=== PATIENT | male | born 1945 | race Caucasian/White ===

== ENCOUNTER 2020-04-07 09:32 | Outpatient (REF) | payer MEDICARE, OTHER, SELFPAY ==
[2020-04-07 10:23] LABS: Urine Cytology See Pathology rpt
== END 2020-04-07 09:33 | disposition home or self-care (01) ==
LOC: HO.LNP 09:32
PROVIDERS: Visit Provider Internal Medicine
DX: R31.9 Hematuria, unspecified (principal)
CPT/HCPCS: 88112

== ENCOUNTER 2020-08-29 07:42 | Outpatient (REF) | payer MEDICARE, OTHER, SELFPAY ==
[2020-08-29 10:20] LABS: MANUAL DIFF FLAG SCAN; Mean Corpuscular Volume 73.4 fL (80-98); SCAN SMEAR FLAG 1
[2020-08-29 10:21] LABS: Basophils Percent Auto 0.3 % (0-2); Eosinophils Absolute Auto 0.2 X10*3/uL (0.0-0.4); Eosinophils Percent Auto 2.3 % (0-4); Hematocrit 46.3 % (42-52); Hemoglobin 13.6 g/dl (14.0-18.0); Imm Gran Abs Auto 0.02 X10*3/uL (0.00-0.03); Imm Gran Pct Auto 0.3 % (0.0-0.4); Lymphocytes Percent Auto 15.4 % (20-40); Mean Corpuscular HGB Conc 29.4 g/dl (31.0-36.0); Mean Corpuscular Hemoglobin 21.6 pg (27.0-33.0); Mean Platelet Volume 10.9 fL (9.4-12.4); Monocytes Absolute Auto 0.5 X10*3/uL (0.1-1.2); Monocytes Percent Auto 8.2 % (2-11); Neutrophils Absolute Auto 4.7 X10*3/uL (2.0-8.3); Neutrophils Percent Auto 73.5 % (45-73); Platelet Count 177 X10*3/uL (160-400); Red Blood Count 6.31 X10*6/uL (4.60-5.80); Red Cell Distribution Width 19.7 % (11.0-16.0); White Blood Count 6.4 X10*3/uL (4.8-10.8)
[2020-08-29 10:32] LABS: Creatinine Urine 137.27 mg/dL; Microalbum/Creatinine Ratio Ur 50.2 ug/mg cr
[2020-08-29 10:35] LABS: Estimated Average Glucose 126 mg/dL; Hemoglobin A1C 148.6503 umol/L
[2020-08-29 10:36] LABS: PLT ABN DIST 1
[2020-08-29 10:37] LABS: Glucose Urine UA >=1000 MG/DL (NEG); Leukocyte Esterase Urine NEG (NEG); Nitrite Urine NEG (NEG); PH 5.5 (5.0-8.0); Specific Gravity - Urine 1.025 (1.005-1.025); Urine Blood NEG (NEG); Urine Ketones NEG (NEG); Urine Protein NEG (NEG-TRACE)
[2020-08-29 10:41] LABS: Appearance Urine CLEAR; Color Urine YELLOW
[2020-08-29 11:04] LABS: Uric Acid 4.7 mg/dL (3.4-7.0)
[2020-08-29 11:06] LABS: Alanine Aminotransferase 24 U/L (0-40); Albumin Level 4.4 g/dL (3.5-5.0); Alkaline Phosphatase 100 U/L (39-117); Anion Gap 15 (12-20); Aspartate Amino Transferase 24 U/L (5-37); Bilirubin Total 0.7 mg/dL (0.0-1.0); Blood Urea Nitrogen 24 mg/dL (9-16); Calcium 8.8 mg/dL (8.4-10.2); Carbon Dioxide 24 mmol/L (22-29); Chloride 108 mmol/L (96-108); Estimated Glomerular Filt Rate 45; Glucose Fasting 117 mg/dL (60-99); Potassium 4.8 mmol/L (3.3-5.1); Sodium 142 mmol/L (135-145); Total Protein 7.1 g/dL (6.5-8.0)
[2020-08-29 11:12] LABS: Mucus Urine 1+ /LPF; RBC Urine 0 /HPF (0); Squamous Epithelial Cell Urine TRACE /LPF
[2020-08-29 11:25] LABS: Vitamin D 25-OH Total 30.8 ng/mL (>30)
[2020-08-30 13:57] LABS: Calcium (PTHI) 9.2 mg/dL (8.6-10.3); PTHI 100 pg/mL (14-64)
== END 2020-08-29 07:43 | disposition home or self-care (01) ==
LOC: HO.10HDL 07:42
PROVIDERS: Absent Provider Internal Medicine Nephrology; Visit Provider Internal Medicine
DX: E11.22 Type 2 diabetes mellitus with diabetic chronic kidney disease (principal); N18.31 Chronic kidney disease, stage 3a; N20.0 Calculus of kidney; I25.10 Atherosclerotic heart disease of native coronary artery without angina pectoris
CPT/HCPCS: 36415; 80053; 81001; 82043; 82306; 83036; 83970; 84550; 85025

== ENCOUNTER → 2020-09-14 16:12 | Outpatient (BNVA) | payer MEDICARE, OTHER, SELFPAY | PROVIDERS: PCP Internal Medicine; Visit Provider Surgery | DX: K51.90 Ulcerative colitis, unspecified, without complications (principal) | CPT/HCPCS: 99202 ==

== ENCOUNTER 2021-03-07 06:00 | Outpatient (REF) | payer MEDICARE, OTHER, SELFPAY ==
[2021-03-07 07:49] LABS: Basophils Percent Auto 0.4 % (0-2); Imm Gran Abs Auto 0.01 X10*3/uL (0.00-0.03); Imm Gran Pct Auto 0.2 % (0.0-0.4); MANUAL DIFF FLAG SCAN
[2021-03-07 07:50] LABS: Eosinophils Absolute Auto 0.2 X10*3/uL (0.0-0.4); Hematocrit 30.7 % (42-52); Lymphocytes Absolute Auto 0.8 X10*3/uL (1.2-4.9); Mean Corpuscular HGB Conc 25.4 g/dl (31.0-36.0); Mean Corpuscular Hemoglobin 15.8 pg (27.0-33.0); Monocytes Absolute Auto 0.7 X10*3/uL (0.1-1.2); Neutrophils Absolute Auto 3.4 X10*3/uL (2.0-8.3); Neutrophils Percent Auto 67.4 % (45-73); Platelet Count 190 X10*3/uL (160-400); Red Blood Count 4.94 X10*6/uL (4.60-5.80); Red Cell Distribution Width 22.5 % (11.0-16.0)
[2021-03-07 07:55] LABS: Mean Corpuscular Volume 62.1 fL (80-98)
[2021-03-07 07:57] LABS: Hemoglobin 7.8 g/dl (14.0-18.0)
[2021-03-07 07:59] LABS: Estimated Average Glucose 111 mg/dL; Hemoglobin A1c % 5.5 %
[2021-03-07 08:18] LABS: Alanine Aminotransferase 15 U/L (0-40); Alkaline Phosphatase 104 U/L (39-117); Anion Gap 11 (12-20); Aspartate Amino Transferase 22 U/L (5-37); Bilirubin Total 0.9 mg/dL (0.0-1.0); Blood Urea Nitrogen 21 mg/dL (9-16); Carbon Dioxide 23 mmol/L (22-29); Chloride 112 mmol/L (96-108); Cholesterol 63 mg/dL; Estimated Glomerular Filt Rate 42; Glucose Fasting 151 mg/dL (60-99); HDL Cholesterol 25 mg/dL; LDL Cholesterol Calculated 20 mg/dl; Potassium 4.8 mmol/L (3.3-5.1); Sodium 141 mmol/L (135-145); Total Protein 6.6 g/dL (6.5-8.0); Triglycerides 93 mg/dL
[2021-03-07 08:21] LABS: Albumin Level 4.1 g/dL (3.5-5.0); Anion Gap 11 (12-20); Blood Urea Nitrogen 21 mg/dL (9-16); Calcium 8.8 mg/dL (8.4-10.2); Carbon Dioxide 23 mmol/L (22-29); Chloride 112 mmol/L (96-108); Estimated Glomerular Filt Rate 43; Magnesium 2.2 mg/dL (1.6-2.6); Phosphorus 2.9 mg/dL (2.7-4.5); Potassium 4.7 mmol/L (3.3-5.1); Sodium 141 mmol/L (135-145)
[2021-03-07 08:44] LABS: SLIDE REVIEW VERIFIED
[2021-03-07 09:54] LABS: Appearance Urine CLEAR; Color Urine YELLOW; Glucose Urine UA >=1000 MG/DL (NEG); Leukocyte Esterase Urine NEG (NEG); Nitrite Urine NEG (NEG); Specific Gravity - Urine 1.025 (1.005-1.025); Urine Blood NEG (NEG); Urine Ketones NEG (NEG); Urine Protein NEG (NEG-TRACE)
[2021-03-07 10:04] LABS: RBC Urine 0-2 /HPF (0); WBC Urine 0 /HPF (0-4)
[2021-03-07 10:14] LABS: Microalbum/Creatinine Ratio Ur 27.9 ug/mg cr; Total Protein Urine Random 11 mg/dL (<12)
[2021-03-10 12:12] LABS: PTHI 29 pg/mL (14-64)
[2021-03-12 12:22] LABS: Vitamin D 25-OH, D2 <4 ng/mL; Vitamin D 25-OH, D3 30 ng/mL; Vitamin D 25-OH, Total 30 ng/mL (30-100)
[2021-03-14 14:27] LABS: Calcium (PTHI) 6.3 mg/dL (8.6-10.3)
== END 2021-03-07 06:01 | disposition home or self-care (01) ==
LOC: HO.LAB 06:00
PROVIDERS: Absent Provider Internal Medicine; PCP Internal Medicine; Visit Provider Internal Medicine Nephrology
DX: E11.22 Type 2 diabetes mellitus with diabetic chronic kidney disease (principal); N18.31 Chronic kidney disease, stage 3a; N25.0 Renal osteodystrophy; N20.0 Calculus of kidney
CPT/HCPCS: 36415; 80051; 80053; 80061; 81001; 82040; 82043; 82306; 82310; 82565; 83036; 83735; 83970; 84100; 84156; 84520; 85025; 87086

== ENCOUNTER 2021-03-20 13:16 | Outpatient (REF) | payer MEDICARE, OTHER, SELFPAY ==
[2021-03-20 16:00] LABS: Imm Gran Abs Auto 0.01 X10*3/uL (0.00-0.03); Imm Gran Pct Auto 0.2 % (0.0-0.4); MANUAL DIFF FLAG SCAN; Monocytes Absolute Auto 0.5 X10*3/uL (0.1-1.2); SCAN SMEAR FLAG 1
[2021-03-20 16:02] LABS: Basophils Percent Auto 0.4 % (0-2); Eosinophils Absolute Auto 0.1 X10*3/uL (0.0-0.4); Eosinophils Percent Auto 2.1 % (0-4); Hematocrit 31.9 % (42-52); Lymphocytes Absolute Auto 0.8 X10*3/uL (1.2-4.9); Lymphocytes Percent Auto 14.3 % (20-40); Mean Corpuscular HGB Conc 25.1 g/dl (31.0-36.0); Mean Corpuscular Hemoglobin 15.7 pg (27.0-33.0); Monocytes Percent Auto 8.6 % (2-11); Neutrophils Percent Auto 74.4 % (45-73); Red Blood Count 5.08 X10*6/uL (4.60-5.80); Red Cell Distribution Width 22.8 % (11.0-16.0)
[2021-03-20 16:12] LABS: Iron 14 mcg/dL (45-160); Mean Corpuscular Volume 62.8 fL (80-98); Percent Iron Saturation 3 % (15-50); Total Iron Binding Capacity 468 mcg/dL (228-428); Unsaturated Iron Binding 454 ug/dL
[2021-03-20 16:13] LABS: PLT ABN DIST 1
[2021-03-20 16:24] LABS: White Blood Count 5.3 X10*3/uL (4.8-10.8)
[2021-03-20 16:25] LABS: SLIDE REVIEW VERIFIED
[2021-03-20 16:40] LABS: Folate 19.1 ng/mL (> or = 4.0); Vitamin B12 534 pg/mL (200-900)
== END 2021-03-20 13:17 | disposition home or self-care (01) ==
LOC: HO.LAB 13:16
PROVIDERS: PCP Internal Medicine; Visit Provider Internal Medicine Nephrology
DX: N18.32 Chronic kidney disease, stage 3b (principal)
CPT/HCPCS: 36415; 82607; 82746; 83540; 85025

== ENCOUNTER 2021-04-13 12:04 | Outpatient (REF) | payer MEDICARE, OTHER, SELFPAY ==
[2021-04-13 12:20] LABS: MANUAL DIFF FLAG NO
[2021-04-13 13:55] LABS: Iron 31 mcg/dL (45-160); Percent Iron Saturation 7 % (15-50); Total Iron Binding Capacity 436 mcg/dL (228-428); Unsaturated Iron Binding 405 ug/dL
[2021-04-13 14:17] LABS: Ferritin 38 ng/mL (20-250)
[2021-04-13 14:22] LABS: Basophils Percent Auto 0.3 % (0-2); Eosinophils Absolute Auto 0.1 X10*3/uL (0.0-0.4); Eosinophils Percent Auto 2.1 % (0-4); Hematocrit 46.3 % (42-52); Imm Gran Abs Auto 0.01 X10*3/uL (0.00-0.03); Imm Gran Pct Auto 0.2 % (0.0-0.4); Lymphocytes Absolute Auto 0.7 X10*3/uL (1.2-4.9); Lymphocytes Percent Auto 12.5 % (20-40); Mean Corpuscular HGB Conc 28.1 g/dl (31.0-36.0); Mean Corpuscular Hemoglobin 21.8 pg (27.0-33.0); Mean Corpuscular Volume 77.7 fL (80-98); Monocytes Absolute Auto 0.6 X10*3/uL (0.1-1.2); Monocytes Percent Auto 9.9 % (2-11); Neutrophils Absolute Auto 4.3 X10*3/uL (2.0-8.3); Platelet Count 197 X10*3/uL (160-400); Red Blood Count 5.96 X10*6/uL (4.60-5.80); White Blood Count 5.8 X10*3/uL (4.8-10.8)
[2021-04-14 19:46] LABS: Immunoglobulin A 218 mg/dL (70-320)
[2021-04-17 16:16] LABS: Transglutaminase Ab IgG <1.0 U/mL; Transglutaminase IgA <1.0 U/mL
[2021-04-17 16:52] LABS: Gliadin Deamidated IgA Ab <1.0 U/mL; Gliadin Deamidated IgG Ab <1.0 U/mL
[2021-04-19 14:46] LABS: Endomysial IgA Antibody Negative (Negative)
== END 2021-04-13 12:05 | disposition home or self-care (01) ==
LOC: HO.LAB 12:04
PROVIDERS: PCP Internal Medicine; Visit Provider Internal Medicine
DX: D50.9 Iron deficiency anemia, unspecified (principal)
CPT/HCPCS: 36415; 82728; 82784; 83516; 83540; 85025; 86255; 86256

== ENCOUNTER 2021-04-17 06:41 | Day surgery (SDC) | payer MEDICARE, OTHER, SELFPAY ==
--- NOTE | 2021-04-14 10:10 | P.CONAN_ITS ---
Documented by User: Devika Hamm NP 04/14/21 10:49 HPI - Anesthesia Eval Consult details Narrative: 75yo M for Upper Endoscopy ileostomy *Multiple Med Allergies* s/p CABG 2017 - See Dr Mccarty ([facility] Cards yearly in 04/2020 stable with no change to regimen, walking >1.5miles daily) PMFSH Active Problems Active Problems: All Active Problems (Updated 09/14/20 @ 17:09 by Eloy Mo MD) Ulcerative colitis (Acute) Past Medical History Medical History CAD (coronary artery disease) Diabetes mellitus Gout Nephrolithiasis Ulcerative colitis Family History Family History Father Colon cancer Mother No problems noted. Paternal Grandfather Cancer of unknown origin Surgical History Surgical History (Updated 04/17/21 @ 07:27 by Isabell Rios MD) H/O cystoscopy H/O ileostomy H/O thumb surgery History of esophagogastroduodenoscopy (EGD) History of quadruple bypass (~10/2016) Social History Social History Patient Tobacco Use Status: Former Tobacco user Use of substances other than those prescribed or required for medical reasons: No Are you DNR?: No Advance Directives: No Advance Directives Information Provided: Yes Recently lost weight without trying: Unsure How much weight loss: 24-33 pounds Eating poorly because of decreased appetite: No Nutrition screen score: 5 Poor oral hygiene: No Meds Allergies Allergy/AdvReac Type Severity Reaction Status Date / Time infliximab [From Remicade] Allergy Severe CHEST,ARM Verified 04/17/21 07:13 PAIN azathioprine [From Imuran] Allergy Intermediate LOWERED Verified 04/17/21 07:13 WBC'S Iodinated Contrast Media Allergy Intermediate CHILLS,RASH Verified 04/17/21 07:13 [IV Dye, Iodine Containing] ,SWEATS alendronate sodium Allergy Mild HIVES Verified 04/17/21 07:13 [From FOSAMAX] amoxicillin [AMOXICILLIN] Allergy Unknown HIVES Verified 04/17/21 07:13 ceftriaxone [From ROCEPHIN] Allergy Unknown HIVES Verified 04/17/21 07:13 lansoprazole [Prevpac] Allergy Unknown Unknown Verified 04/17/21 07:13 omeprazole [From PRILOSEC] Allergy Unknown HIVES Verified 04/17/21 07:13 penicillin V Allergy Unknown Unknown Verified 04/17/21 07:13 sulfamethoxazole Allergy Unknown HIVES Verified 04/17/21 07:13 [From Bactrim] trimethoprim [From Bactrim] Allergy Unknown HIVES Verified 04/17/21 07:13 contrast Allergy Unknown high temp, Uncoded 08/07/19 00:00 sweats SURGICAL MESH Allergy Unknown Unknown Uncoded 09/14/20 16:23 Home Medications Medication Instructions Recorded Confirmed Last Taken Type allopurinol 100 mg tablet 200 mg PO DAILY 09/14/20 09/14/20 Unknown History aspirin 81 mg tablet,delayed 81 mg PO DAILY 09/14/20 09/14/20 Unknown History release atorvastatin 80 mg tablet 80 mg PO BEDTIME 09/14/20 09/14/20 Unknown History dapagliflozin 5 mg tablet 5 mg PO DAILY 09/14/20 09/14/20 Unknown History metoprolol succinate 25 mg 25 mg PO DAILY 09/14/20 04/17/21 04/17/21 History tablet,extended release 24 hr 25 mg pantoprazole 40 mg tablet,delayed 40 mg PO DAILY 09/14/20 09/14/20 Unknown History release Exam Exam Date and Time: April 14, 2021 1010 Pertinent Lab Results Pertinent Lab Results: Laboratory Tests 03/07/21 04/13/21 06:20 12:16 WBC 5.8 Hgb 13.0 L D Hct 46.3 D Plt Count 197 Sodium 141 Potassium 4.7 Chloride 112 H Carbon Dioxide 23 BUN 21 H Creatinine 1.59 H Assessment and Plan Assessment Anesthesia Assessment: Chart Reviewed Documented by User: Isabell Rios MD 04/17/21 07:44 PMFSH Active Problems Active Problems: All Active Problems (Updated 09/14/20 @ 17:09 by Eloy Mo MD) Ulcerative colitis (Acute) Denies chest pain Past Medical History Medical History CAD (coronary artery disease) Diabetes mellitus Gout Nephrolithiasis Ulcerative colitis Family History Family History Father Colon cancer Mother No problems noted. Paternal Grandfather Cancer of unknown origin Family history of problems with anesthesia: No Surgical History Surgical History (Updated 04/17/21 @ 07:27 by Isabell Rios MD) H/O cystoscopy H/O ileostomy H/O thumb surgery History of esophagogastroduodenoscopy (EGD) History of quadruple bypass (~10/2016) History of Problems with Anesthesia: No Social History Social History Patient Tobacco Use Status: Former Tobacco user Use of substances other than those prescribed or required for medical reasons: No Are you DNR?: No Advance Directives: No Advance Directives Information Provided: Yes Recently lost weight without trying: Unsure How much weight loss: 24-33 pounds Eating poorly because of decreased appetite: No Nutrition screen score: 5 Poor oral hygiene: No Meds Allergies Allergy/AdvReac Type Severity Reaction Status Date / Time infliximab [From Remicade] Allergy Severe CHEST,ARM Verified 04/17/21 07:13 PAIN azathioprine [From Imuran] Allergy Intermediate LOWERED Verified 04/17/21 07:13 WBC'S Iodinated Contrast Media Allergy Intermediate CHILLS,RASH Verified 04/17/21 07:13 [IV Dye, Iodine Containing] ,SWEATS alendronate sodium Allergy Mild HIVES Verified 04/17/21 07:13 [From FOSAMAX] amoxicillin [AMOXICILLIN] Allergy Unknown HIVES Verified 04/17/21 07:13 ceftriaxone [From ROCEPHIN] Allergy Unknown HIVES Verified 04/17/21 07:13 lansoprazole [Prevpac] Allergy Unknown Unknown Verified 04/17/21 07:13 omeprazole [From PRILOSEC] Allergy Unknown HIVES Verified 04/17/21 07:13 penicillin V Allergy Unknown Unknown Verified 04/17/21 07:13 sulfamethoxazole Allergy Unknown HIVES Verified 04/17/21 07:13 [From Bactrim] trimethoprim [From Bactrim] Allergy Unknown HIVES Verified 04/17/21 07:13 contrast Allergy Unknown high temp, Uncoded 08/07/19 00:00 sweats SURGICAL MESH Allergy Unknown Unknown Uncoded 09/14/20 16:23 Home Medications Medication Instructions Recorded Confirmed Last Taken Type allopurinol 100 mg tablet 200 mg PO DAILY 09/14/20 09/14/20 Unknown History aspirin 81 mg tablet,delayed 81 mg PO DAILY 09/14/20 09/14/20 Unknown History release atorvastatin 80 mg tablet 80 mg PO BEDTIME 09/14/20 09/14/20 Unknown History dapagliflozin 5 mg tablet 5 mg PO DAILY 09/14/20 09/14/20 Unknown History metoprolol succinate 25 mg 25 mg PO DAILY 09/14/20 04/17/21 04/17/21 History tablet,extended release 24 hr 25 mg pantoprazole 40 mg tablet,delayed 40 mg PO DAILY 09/14/20 09/14/20 Unknown History release Exam Height,Weight and Vital Signs: Height 5 ft 10 in Weight 84.368 kg Vital Signs Temp Pulse Resp BP Pulse Ox 04/17/21 06:52 96.9 F 66 15 172/82 H 100 Pertinent Lab Results Pertinent Lab Results: Laboratory Tests 03/07/21 04/13/21 06:20 12:16 WBC 5.8 Hgb 13.0 L D Hct 46.3 D Plt Count 197 Sodium 141 Potassium 4.7 Chloride 112 H Carbon Dioxide 23 BUN 21 H Creatinine 1.59 H POC 156 (Patient checked @ 6:44am 04/17/21) Airway Mallampati Class: II TM Dist: >3cm Neck ROM: Full Denture: Upper Heart: RRR Lungs: CTAB Assessment and Plan Assessment Anesthesia Assessment: Anesthesia Plan Discussed Final Anesthetic Review Family History of Problems with Anesthesia: No History of Problems with Anesthesia: No NPO: Yes ASA Class: III Final Preanesthetic Review: No Changes in Pt Med Stat, Meds/Allgs Chart Reviewed, Consent Obtained/Reviewed and Anes Risks/Benef Reviewed Patient Risk: Intermediate Procedure Risk: Low Assessment/Block/Sedation in SS: Assess/Block/Sedation-SS Anesthetic Plan Anesthetic Plan: MAC: Disposition: Standard PACU
[2021-04-17 06:52] VITALS: BP 172/82; PULSE 66; RESP 15; TEMP 36.1; O2SAT 100; BMI 26.6
[2021-04-17] MEDS: Lactated Ringers 1,000 ML 50 ML IVCONT (07:13)
[2021-04-17 08:05] VITALS: BP 118/58; PULSE 58; RESP 16; TEMP 36.2; O2SAT 99
--- NOTE | 2021-04-17 08:10 | PM.OP ---
Brief Operative Note Date of Service: 04/17/21 Pre-op diagnosis: Anemia Post-op diagnosis: other (Gastritis) Procedure: EGD with biopsies Surgeon: Dallin Cisneros Anesthesia: MAC Was an Granulating Blender used for this Procedure?: No Estimated blood loss (mL): 3.0 Pathology: other (A. Descending duodenum B. Gastric antrum) Condition: stable Disposition: PACU
[2021-04-17 08:20] VITALS: PULSE 60; RESP 16; TEMP 36.2; O2SAT 99
--- NOTE | 2021-04-17 08:37 | OP_ITS ---
SURGEON: Dallin Cisneros MD INDICATIONS: The patient presents for evaluation of anemia. Full consent has been obtained from him for this, including risks of bleeding and perforation. PREOPERATIVE DIAGNOSIS: POSTOPERATIVE DIAGNOSIS: PROCEDURE PERFORMED: ESTIMATED BLOOD LOSS: COMPLICATIONS: ANESTHESIA: Monitored anesthesia care. ASSISTANTS: SPECIMENS: PROCEDURE: Esophagogastroduodenoscopy with biopsies. PREOPERATIVE DIAGNOSES: Anemia. POSTOPERATIVE DIAGNOSES: Anemia, gastritis, rule out celiac disease, hiatal hernia. DESCRIPTION OF PROCEDURE: The patient was placed in the left lateral decubitus position. The Olympus video gastroscope was passed in the posterior oropharynx and upper esophagus under direct vision. The scope was passed slowly into the distal esophagus. The gastroesophageal junction appeared at 39 cm. There was a very minimal irregularity but no evidence of any esophagitis. The scope entered the stomach. There was a small hiatal hernia. The scope was advanced to the pylorus and duodenum was cannulated in the descending portion. The duodenum including the bulb appeared normal without mass or ulceration. Biopsies were obtained from the descending duodenum. Scope was withdrawn back to the stomach. The gastric antrum and body had 3 less than 5 mm areas of erosions, which were somewhat friable, but without active bleeding. There was good peristalsis. The remainder of the antrum and body appeared normal. Biopsies were obtained from the gastric antrum. Scope was retroflexed visualizing the proximal stomach carefully. In the proximal stomach was an approximately 5 or 6 mm somewhat friable polyp which appeared to be hyperplastic but was not actively bleeding. Biopsies were not obtained. The remainder of the proximal stomach appeared normal. The scope was straightened and withdrawn back to the esophagus. The esophageal mucosa appeared normal. Scope was withdrawn from the patient. He tolerated the procedure well and was returned to the recovery area in stable condition. IMPRESSION: 1. Erosive gastritis and gastric polyp 2. Rule out celiac disease. 3. Hiatal hernia. PLAN: The results of the biopsies will be checked. Interestingly, his blood count on April 13 showed marked improvement with a hemoglobin of 13.0 compared to 8.0 on March 20. His MCV was still somewhat low at 78. His iron studies showed an iron of 31 with an iron saturation of 7% and a ferritin of 38. He does take one single low-dose aspirin daily and he may very well have had some bleeding in relation to that. He does need to stay on that in relation to coronary artery disease with surgery about 3 years ago. He is already on pantoprazole once a day, but I shall increase this to twice a day. I will also start him on Carafate 1 Gram TID before meals. I did advise him to continue his iron long-term as well. If the blood counts remain stable, I do not think any further workup would be required but eventually he may need a small bowel video capsule study if the blood count drops again. If Helicobacter pylori is present in the gastric biopsies, we could consider treating that as well. He will be seen in followup. This has been discussed with his . MD HOMA Meedl/ABIDA / [id number] MTDD
== END 2021-04-17 08:45 | disposition home or self-care (01) ==
PROVIDERS: PCP Internal Medicine; Visit Provider Internal Medicine
PROC: 0DJ08ZZ Inspection of Upper Intestinal Tract, Via Natural or Artificial Opening Endoscopic (ICD-10-PCS; CPT 43235; principal; 2021-04-17 07:30)
DX: D50.9 Iron deficiency anemia, unspecified (principal); K29.50 Unspecified chronic gastritis without bleeding; K31.7 Polyp of stomach and duodenum; K44.9 Diaphragmatic hernia without obstruction or gangrene; I25.10 Atherosclerotic heart disease of native coronary artery without angina pectoris; Z95.1 Presence of aortocoronary bypass graft; E11.9 Type 2 diabetes mellitus without complications; Z79.4 Long term (current) use of insulin; Z93.2 Ileostomy status; Z79.82 Long term (current) use of aspirin; Z79.899 Other long term (current) drug therapy; Z87.891 Personal history of nicotine dependence; Z88.0 Allergy status to penicillin; Z91.041 Radiographic dye allergy status
CPT/HCPCS: 43239; 88305; 88342

== ENCOUNTER 2021-04-26 13:35 | Outpatient (REF) | payer MEDICARE, OTHER, SELFPAY ==
[2021-04-26 13:49] LABS: MANUAL DIFF FLAG NO
[2021-04-26 14:24] LABS: Basophils Percent Auto 0.5 % (0-2); Eosinophils Absolute Auto 0.1 X10*3/uL (0.0-0.4); Eosinophils Percent Auto 2.3 % (0-4); Hematocrit 50.2 % (42.0-52.0); Hemoglobin 14.3 g/dl (14.0-18.0); Imm Gran Abs Auto 0.01 X10*3/uL (0.00-0.03); Imm Gran Pct Auto 0.2 % (0.0-0.4); Lymphocytes Absolute Auto 0.9 X10*3/uL (1.2-4.9); Lymphocytes Percent Auto 16.8 % (20-40); Mean Corpuscular HGB Conc 28.5 g/dl (31.0-36.0); Mean Corpuscular Hemoglobin 23.2 pg (27.0-33.0); Mean Corpuscular Volume 81.4 fL (80.0-98.0); Monocytes Absolute Auto 0.5 X10*3/uL (0.1-1.2); Monocytes Percent Auto 8.9 % (2-11); Neutrophils Absolute Auto 3.99 x10*3/uL (2.0-8.3); Neutrophils Percent Auto 71.3 % (45-73); Platelet Count 163 X10*3/uL (160-400); Red Blood Count 6.17 X10*6/uL (4.60-5.80); White Blood Count 5.6 X10*3/uL (4.8-10.8)
[2021-04-26 14:39] LABS: Anion Gap 12 (12-20); Blood Urea Nitrogen 22 mg/dL (9-16); Calcium 9.4 mg/dL (8.4-10.2); Carbon Dioxide 26 mmol/L (22-29); Chloride 107 mmol/L (96-108); Estimated Glomerular Filt Rate 38; Glucose Random 107 mg/dL (60-115); Potassium 5.1 mmol/L (3.3-5.1); Sodium 140 mmol/L (135-145)
== END 2021-04-26 13:36 | disposition home or self-care (01) ==
LOC: HO.LAB 13:35
PROVIDERS: Visit Provider Internal Medicine
DX: N18.9 Chronic kidney disease, unspecified (principal); D64.9 Anemia, unspecified
CPT/HCPCS: 36415; 80048; 85025

== ENCOUNTER 2021-08-15 06:03 | Outpatient (REF) | payer MEDICARE, OTHER, SELFPAY ==
[2021-08-15 06:26] LABS: MANUAL DIFF FLAG NO
[2021-08-15 07:36] LABS: Basophils Percent Auto 0.4 % (0-2); Eosinophils Absolute Auto 0.1 X10*3/uL (0.0-0.4); Eosinophils Percent Auto 2.1 % (0-4); Imm Gran Abs Auto 0.02 X10*3/uL (0.00-0.03); Imm Gran Pct Auto 0.4 % (0.0-0.4); Mean Corpuscular HGB Conc 31.9 g/dl (31.0-36.0); Mean Corpuscular Hemoglobin 28.5 pg (27.0-33.0); Mean Corpuscular Volume 89.3 fL (80.0-98.0); Mean Platelet Volume 10.6 fL (9.4-12.4); Monocytes Absolute Auto 0.6 X10*3/uL (0.1-1.2); Monocytes Percent Auto 10.9 % (2-11); Neutrophils Absolute Auto 3.8 x10*3/uL (2.0-8.3); Neutrophils Percent Auto 68.2 % (45-73); Platelet Count 155 X10*3/uL (160-400); Red Blood Count 6.28 X10*6/uL (4.60-5.80); Red Cell Distribution Width 16.4 % (11.0-16.0); White Blood Count 5.6 X10*3/uL (4.8-10.8)
[2021-08-15 07:38] LABS: Hematocrit 56.1 % (42.0-52.0); Hemoglobin 17.9 g/dl (14.0-18.0)
[2021-08-15 07:43] LABS: Alanine Aminotransferase 33 U/L (0-40); Albumin Level 4.4 g/dL (3.5-5.0); Alkaline Phosphatase 100 U/L (39-117); Anion Gap 14 (12-20); Aspartate Amino Transferase 37 U/L (5-37); Bilirubin Total 1.4 mg/dL (0.0-1.0); Blood Urea Nitrogen 25 mg/dL (9-16); Calcium 9.8 mg/dL (8.4-10.2); Carbon Dioxide 25 mmol/L (22-29); Chloride 107 mmol/L (96-108); Estimated Glomerular Filt Rate 39; Glucose Random 138 mg/dL (60-115); Potassium 5.7 mmol/L (3.3-5.1); Sodium 140 mmol/L (135-145); Total Protein 7.5 g/dL (6.5-8.0)
[2021-08-15 08:19] LABS: Estimated Average Glucose 154 mg/dL
[2021-08-15 08:43] LABS: Creatinine Urine 110.43 mg/dL; Microalbum/Creatinine Ratio Ur 88.7 ug/mg cr
[2021-08-15 08:49] LABS: Prostate Specific Antigen Scr 1.86 ng/mL (<0.05-4.0)
== END 2021-08-15 06:04 | disposition home or self-care (01) ==
LOC: HO.LAB 06:03
PROVIDERS: PCP Internal Medicine; Visit Provider Internal Medicine
DX: Z12.5 Encounter for screening for malignant neoplasm of prostate (principal); E11.9 Type 2 diabetes mellitus without complications; N18.9 Chronic kidney disease, unspecified; I25.10 Atherosclerotic heart disease of native coronary artery without angina pectoris; Z87.19 Personal history of other diseases of the digestive system
CPT/HCPCS: 36415; 80053; 82043; 83036; 84153; 85025

== ENCOUNTER 2021-09-19 10:18 | Outpatient (REF) | payer MEDICARE, OTHER, SELFPAY ==
--- NOTE | ~2021-09-19 | US_ITS ---
EXAMINATION: US RETROPERITONEAL LIMITED (RENAL ONLY) CLINICAL INFORMATION: Calculus of kidney. COMPARISON: US retroperitoneal limited (renal only) 07/22/2019 and 02/02/2019. CT abdomen and pelvis without contrast 09/02/2018. XR abdomen KUB 01/26/2015 and 12/29/2014. TECHNIQUE: Real-time imaging of the kidneys. FINDINGS: RIGHT KIDNEY: 11.5 x 6.8 x 6.6 cm (SAG x AP x TRV). The kidney is normal in size, contour, and echogenicity. Renal cortical thickness is normal. There are 2 small cysts measuring 6 x 7 x 9 mm in the midpole and 6 x 6 x 4 mm in the lower pole. No renal calculi or hydronephrosis. LEFT KIDNEY: 9.5 x 5.2 x 4.7 cm (SAG x AP x TRV). The kidney is normal in size, contour, and echogenicity. Renal cortical thickness is normal. There is a 3.3 x 2.9 x 3.7 cm cyst in the lower pole. There is a 3.2 x 3.1 x 3.2 cm heterogeneous partially solid partially cystic question area in the lateral lower pole. This measured 3 x 1.8 x 2.3 cm June 2019 and 3.1 x 2.1 x 2.4 cm in 2018. Previous CT demonstrates heterogeneous appearance of the perinephric fat and this may correspond to perinephric fat stranding or fat necrosis. No renal calculi or hydronephrosis. US/US renal BI IMPRESSION: No stone seen. Bilateral renal cysts. Heterogeneous 3.2 x 3 x 3.2 cm area lateral the mid to lower pole of the left kidney, question related to inflammatory changes in the fat or fat necrosis compared with previous CT scan. This could be confirmed with follow-up CT or MR of the kidneys if clinically indicated..
== END 2021-09-19 10:19 | disposition home or self-care (01) ==
LOC: HO.US 10:18
PROVIDERS: PCP Internal Medicine; Visit Provider Urology
DX: N20.0 Calculus of kidney (principal)
CPT/HCPCS: 76775

== ENCOUNTER 2021-10-04 18:28 | Emergency (ER) | payer MEDICARE, OTHER, SELFPAY ==
[2021-10-04 19:57] VITALS: BP 115/59; PULSE 58; RESP 18; TEMP 36.3; O2SAT 98; BMI 26.1
== END 2021-10-05 01:31 | disposition left against medical advice (07) ==
LOC: HO.ED 10-05 01:16
PROVIDERS: Emergency Provider Emergency Medicine; PCP Internal Medicine
DX: R10.9 Unspecified abdominal pain (principal)
CPT/HCPCS: 17250; 36415; 80053; 85025; 85610; 85730; 99212; 99282; 99283

== ENCOUNTER 2021-10-05 10:21 | Outpatient (REF) | payer MEDICARE, OTHER, SELFPAY ==
[2021-10-05 10:45] LABS: MANUAL DIFF FLAG NO
[2021-10-05 11:31] LABS: INTERNATIONAL NORM RATIO 1.1 (0.9-1.1)
[2021-10-05 11:33] LABS: Partial Thromboplastin Time 39.7 SEC (24.1-38.0)
[2021-10-05 11:34] LABS: Basophils Percent Auto 0.3 % (0-2); Eosinophils Absolute Auto 0.2 X10*3/uL (0.0-0.4); Eosinophils Percent Auto 2.3 % (0-4); Hemoglobin 17.8 g/dl (14.0-18.0); Imm Gran Abs Auto 0.03 X10*3/uL (0.00-0.03); Imm Gran Pct Auto 0.3 % (0.0-0.4); Lymphocytes Percent Auto 9.6 % (20-40); Mean Corpuscular HGB Conc 31.4 g/dl (31.0-36.0); Mean Corpuscular Hemoglobin 28.9 pg (27.0-33.0); Mean Corpuscular Volume 91.9 fL (80.0-98.0); Mean Platelet Volume 11.2 fL (9.4-12.4); Monocytes Absolute Auto 0.8 X10*3/uL (0.1-1.2); Monocytes Percent Auto 8.3 % (2-11); Neutrophils Percent Auto 79.2 % (45-73); Platelet Count 192 X10*3/uL (160-400); Red Blood Count 6.16 X10*6/uL (4.60-5.80); Red Cell Distribution Width 14.6 % (11.0-16.0); White Blood Count 10.1 X10*3/uL (4.8-10.8)
[2021-10-05 11:46] LABS: Hematocrit 56.6 % (42.0-52.0)
[2021-10-05 11:49] LABS: Prothrombin Time 12.3 SEC (9.9-13.0)
[2021-10-05 11:54] LABS: Alanine Aminotransferase 27 U/L (0-40); Albumin Level 4.6 g/dL (3.5-5.0); Alkaline Phosphatase 89 U/L (39-117); Anion Gap 16 (12-20); Aspartate Amino Transferase 26 U/L (5-37); Bilirubin Total 1.6 mg/dL (0.0-1.0); Blood Urea Nitrogen 31 mg/dL (9-16); Calcium 9.9 mg/dL (8.4-10.2); Carbon Dioxide 23 mmol/L (22-29); Chloride 104 mmol/L (96-108); Estimated Glomerular Filt Rate 30; Glucose Random 166 mg/dL (60-115); Potassium 5.4 mmol/L (3.3-5.1); Sodium 138 mmol/L (135-145); Total Protein 7.6 g/dL (6.5-8.0)
== END 2021-10-05 10:22 | disposition home or self-care (01) ==
LOC: HO.LAB 10:21
PROVIDERS: PCP Internal Medicine; Visit Provider Internal Medicine
DX: K50.90 Crohn's disease, unspecified, without complications (principal); N20.0 Calculus of kidney; Z93.9 Artificial opening status, unspecified
CPT/HCPCS: 17250; 36415; 80053; 85025; 85610; 85730; 99212; 99282; 99283

== ENCOUNTER 2021-10-25 09:40 | Outpatient (REF) | payer MEDICARE, OTHER, SELFPAY ==
[2021-10-25 10:51] LABS: Anion Gap 11 (12-20); Blood Urea Nitrogen 26 mg/dL (9-16); Calcium 9.5 mg/dL (8.4-10.2); Carbon Dioxide 26 mmol/L (22-29); Chloride 106 mmol/L (96-108); Estimated Glomerular Filt Rate 34; Glucose Random 152 mg/dL (60-115); Potassium 5.2 mmol/L (3.3-5.1); Sodium 138 mmol/L (135-145)
[2021-10-25 11:08] LABS: Estimated Average Glucose 134 mg/dL; Hemoglobin A1c % 6.3 %
== END 2021-10-25 09:41 | disposition home or self-care (01) ==
LOC: HO.LAB 09:40
PROVIDERS: PCP Internal Medicine; Visit Provider Internal Medicine
DX: E11.9 Type 2 diabetes mellitus without complications (principal); N18.9 Chronic kidney disease, unspecified
CPT/HCPCS: 36415; 80048; 83036

== ENCOUNTER 2022-04-10 09:16 | Outpatient (REF) | payer MEDICARE, OTHER, SELFPAY ==
[2022-04-10 10:25] LABS: Estimated Average Glucose 140 mg/dL; Hemoglobin A1c % 6.5 %
[2022-04-10 10:52] LABS: Alanine Aminotransferase 27 U/L (0-40); Albumin Level 4.3 g/dL (3.5-5.0); Alkaline Phosphatase 91 U/L (39-117); Anion Gap 17 (12-20); Aspartate Amino Transferase 26 U/L (5-37); Bilirubin Total 0.9 mg/dL (0.0-1.0); Blood Urea Nitrogen 19 mg/dL (9-16); Carbon Dioxide 24 mmol/L (22-29); Chloride 106 mmol/L (96-108); Estimated Glomerular Filt Rate 45; Glucose Random 207 mg/dL (60-115); Potassium 4.9 mmol/L (3.3-5.1); Sodium 142 mmol/L (135-145); Total Protein 6.8 g/dL (6.5-8.0)
[2022-04-10 11:37] LABS: Creatinine Urine 61.69 mg/dL; Microalbum/Creatinine Ratio Ur 59.9 ug/mg cr
== END 2022-04-10 09:17 | disposition home or self-care (01) ==
LOC: HO.LAB 09:16
PROVIDERS: PCP Internal Medicine; Visit Provider Internal Medicine
DX: E11.9 Type 2 diabetes mellitus without complications (principal); N18.9 Chronic kidney disease, unspecified; I25.10 Atherosclerotic heart disease of native coronary artery without angina pectoris
CPT/HCPCS: 36415; 80053; 82043; 83036

== ENCOUNTER 2022-04-13 10:14 | Outpatient (REF) | payer MEDICARE, OTHER, SELFPAY ==
--- NOTE | ~2022-04-13 | US_ITS ---
EXAMINATION: US RETROPERITONEAL LIMITED (RENAL ONLY) CLINICAL INFORMATION: Calculus of kidney. COMPARISON: Renal ultrasound 09/19/2021 and 07/22/2019. CT abdomen and pelvis 09/02/2018. X-ray KUB 01/26/2015 and 12/29/2014. TECHNIQUE: Real-time imaging of the kidneys. FINDINGS: RIGHT KIDNEY: 12.4 x 5.2 x 5.9 cm (SAG x AP x TRV). The kidney is normal in size, contour, and echogenicity. Renal cortical thickness is normal. There are 3 small cysts, largest measuring 9 mm in the midpole. No renal calculi or hydronephrosis. LEFT KIDNEY: 9.5 x 4.2 x 5.9 cm (SAG x AP x TRV). The kidney is normal in size, contour, and echogenicity. Renal cortical thickness is normal. There is a 2.6 x 1.9 x 2 cm complex partially solid hyperechoic partially cystic area exophytic to the lateral [id number] pole. This is decreased in size from 3.2 x 3.1 x 3.2 cm on most recent ultrasound August 2021. This may correspond to perinephric fat necrosis when compared with previous CT scan. This can be seen going back to old CT scans July 2017 and renal ultrasound May 2017. There is a 2.6 x 1.9 x 2 cm cyst in the lower pole. No renal calculi or hydronephrosis. US/US renal BI IMPRESSION: No renal stone appreciated. Bilateral renal cysts. Interval decrease in the complex lesion exophytic to the lateral ntn-[id number] pole the left kidney. This may be related to fat necrosis of the perinephric fat. This can be seen on multiple old exams going back to 2016 and 2018.
== END 2022-04-13 10:15 | disposition home or self-care (01) ==
LOC: HO.US 10:14
PROVIDERS: Visit Provider Urology
DX: N20.0 Calculus of kidney (principal)
CPT/HCPCS: 76775

== ENCOUNTER → 2022-04-27 14:31 | Outpatient (BNVA) | payer MEDICARE, OTHER, SELFPAY | PROVIDERS: PCP Internal Medicine; Visit Provider Urology | DX: R31.0 Gross hematuria (principal) | CPT/HCPCS: Q3014 ==

== ENCOUNTER 2022-05-07 07:38 | Outpatient (REF) | payer MEDICARE, OTHER, SELFPAY ==
--- NOTE | ~2022-05-07 | XR_ITS ---
EXAMINATION: XR SHOULDER, RIGHT CLINICAL INFORMATION: Pain COMPARISON: Previous x-ray October 2018 TECHNIQUE: Three views of the right shoulder. FINDINGS: Bone alignment is normal. No fracture or dislocation. Normal glenohumeral joint. Arthritis at the acromioclavicular joint. Normal soft tissues. 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
== END 2022-05-07 07:39 | disposition home or self-care (01) ==
LOC: HO.HOSX 07:38
PROVIDERS: Visit Provider Physician Assistant
DX: M25.511 Pain in right shoulder (principal); M75.81 Other shoulder lesions, right shoulder
CPT/HCPCS: 20610; 73030; 99202; J1020

== ENCOUNTER 2022-06-06 15:42 | Outpatient (REF) | payer MEDICARE, OTHER, SELFPAY ==
[2022-06-06 17:58] LABS: Urine Cytology See Pathology rpt
== END 2022-06-06 15:43 | disposition home or self-care (01) ==
LOC: HO.LAB 15:42
PROVIDERS: Visit Provider Urology
DX: R31.0 Gross hematuria (principal); N40.1 Benign prostatic hyperplasia with lower urinary tract symptoms; N13.8 Other obstructive and reflux uropathy
CPT/HCPCS: 52000; 88112; 99212

== ENCOUNTER → 2022-06-26 13:07 | Outpatient (BNVA) | payer MEDICARE, OTHER, SELFPAY | PROVIDERS: PCP Internal Medicine; Visit Provider Surgery | DX: K13.0 Diseases of lips (principal) | CPT/HCPCS: 99212 ==

== ENCOUNTER 2022-07-19 09:57 | Outpatient (REF) | payer MEDICARE, OTHER, SELFPAY ==
[2022-07-19 10:11] LABS: MANUAL DIFF FLAG NO
[2022-07-19 10:35] LABS: Appearance Urine Clear; Color Urine Yellow; Glucose Urine UA >=1000 mg/dL (Negative); Leukocyte Esterase Urine Negative (Negative); Nitrite Urine Negative (Negative); Specific Gravity - Urine 1.025 (1.005-1.025); UMIC TRIGGER UA YES; Urine Blood Negative (Negative); Urine Ketones Negative (Negative); Urine Protein Trace mg/dL (Neg-Trace)
[2022-07-19 10:39] LABS: Bacteria Urine None Seen (None Seen); Hyaline Casts Urine 0-2 /LPF (0-2); RBC Urine 0-2 /HPF (0-2); Squamous Epithelial Cell Urine 0-2 /HPF (0-2); WBC Urine 0-5 /HPF (0-5)
[2022-07-19 10:44] LABS: Basophils Percent Auto 0.4 % (0-2); Eosinophils Absolute Auto 0.1 X10*3/uL (0.0-0.4); Eosinophils Percent Auto 1.7 % (0-4); Hemoglobin 15.3 g/dl (14.0-18.0); Imm Gran Abs Auto 0.02 X10*3/uL (0.00-0.03); Imm Gran Pct Auto 0.4 % (0.0-0.4); Lymphocytes Absolute Auto 0.8 X10*3/uL (1.2-4.9); Lymphocytes Percent Auto 15.8 % (20-40); Mean Corpuscular Hemoglobin 24.7 pg (27.0-33.0); Mean Corpuscular Volume 82.4 fL (80.0-98.0); Mean Platelet Volume 11.4 fL (9.4-12.4); Monocytes Absolute Auto 0.5 X10*3/uL (0.1-1.2); Monocytes Percent Auto 10.2 % (2-11); Neutrophils Absolute Auto 3.8 x10*3/uL (2.0-8.3); Neutrophils Percent Auto 71.5 % (45-73); Platelet Count 162 X10*3/uL (160-400); Red Blood Count 6.19 X10*6/uL (4.60-5.80); Red Cell Distribution Width 16.2 % (11.0-16.0); White Blood Count 5.3 X10*3/uL (4.8-10.8)
[2022-07-19 11:23] LABS: Creatinine Urine 86.43 mg/dL; Microalbum/Creatinine Ratio Ur 126.1 ug/mg cr; Protein/Creatinine Ratio, Ur 0.23 (<0.2); Total Protein Urine Random 20 mg/dL (<12)
[2022-07-19 11:35] LABS: Albumin Level 4.3 g/dL (3.5-5.0); Anion Gap 12 (12-20); Blood Urea Nitrogen 24 mg/dL (9-16); Calcium 9.2 mg/dL (8.4-10.2); Carbon Dioxide 25 mmol/L (22-29); Chloride 108 mmol/L (96-108); Estimated Glomerular Filt Rate 40; Phosphorus 2.8 mg/dL (2.7-4.5); Potassium 4.8 mmol/L (3.3-5.1); Sodium 140 mmol/L (135-145)
[2022-07-20 11:49] LABS: Calcium (PTHI) 9.8 mg/dL (8.6-10.3); PTHI 104 pg/mL (16-77)
== END 2022-07-19 09:58 | disposition home or self-care (01) ==
LOC: HO.LAB 09:57
PROVIDERS: PCP Internal Medicine; Visit Provider Internal Medicine Nephrology
DX: E11.22 Type 2 diabetes mellitus with diabetic chronic kidney disease (principal); N18.32 Chronic kidney disease, stage 3b; N25.0 Renal osteodystrophy
CPT/HCPCS: 36415; 80051; 81001; 82040; 82043; 82306; 82310; 82565; 83735; 83970; 84100; 84156; 84520; 85025; 87086

== ENCOUNTER → 2022-08-14 15:03 | Outpatient (BNVA) | payer MEDICARE, OTHER, SELFPAY | PROVIDERS: PCP Internal Medicine; Visit Provider Urology | DX: N40.1 Benign prostatic hyperplasia with lower urinary tract symptoms (principal); N13.8 Other obstructive and reflux uropathy; N20.0 Calculus of kidney | CPT/HCPCS: Q3014 ==

== ENCOUNTER 2022-09-25 12:47 | Outpatient (REF) | payer MEDICARE, OTHER, SELFPAY ==
[2022-09-25 12:55] VITALS: BMI 26.2
[2022-09-25 12:57] VITALS: BP 145/75; PULSE 74; RESP 16; TEMP 36.6; O2SAT 97
[2022-09-25 13:20] VITALS: BP 158/80; PULSE 74; RESP 16; O2SAT 96
--- NOTE | 2022-09-25 16:06 | P.OP_ITS ---
Operative Note Operative Note Date of Service: 09/25/22 Narrative: Preoperative diagnosis: Skin lesion lower lip Postoperative diagnosis: Same Procedure: Punch biopsy skin lesion left lower lip Surgeon: Eloy Mo MD First Aid Director: None Anesthesia: Lidocaine 1% with epinephrine Indications for procedure: 77-year-old male patient presenting with a persistent mass located in the left lower lip. Lesion was quite large but has subsequently decreased in size. He presents today for a punch biopsy. Operative findings: 4 mm round hard lesion located in the lower lip just below the vermilion border. Specimen: Punch biopsy lower lip Estimated blood loss: 4 mL Complications: None Procedure details: Patient was brought to the minor surgery suite and placed in a supine position. After assuring informed consent and confirming the site of surgery skin of the lower left lip was prepped with Betadine and draped in a sterile fashion. Local anesthesia was then infiltrated below the lesion. A 3.5 mm punch biopsy was then performed at the margin of the lesion. Hemostasis was assured using light pressure. The specimen was passed off the table and sent to pathology for further examination. Skin was then reapproximated using interrupted 5 0 nylon sutures. Bacitracin was applied. The patient tolerated the procedure well and was discharged to home in stable condition.
== END 2022-09-25 12:48 | disposition home or self-care (01) ==
LOC: HO.MS 12:47
PROVIDERS: PCP Internal Medicine; Visit Provider Surgery
PROC: (CPT 40490; principal; 2022-09-25 13:00)
DX: C00.4 Malignant neoplasm of lower lip, inner aspect (principal); K13.0 Diseases of lips
CPT/HCPCS: 40490; 88305

== ENCOUNTER → 2022-10-02 10:22 | Outpatient (BNVA) | payer MEDICARE, OTHER, SELFPAY | PROVIDERS: PCP Internal Medicine; Visit Provider Surgery ==

== ENCOUNTER 2022-10-17 07:20 | Day surgery (SDC) | payer MEDICARE, OTHER, SELFPAY ==
[2022-10-15 11:35] VITALS: BMI 26.9
--- NOTE | 2022-10-16 08:53 | HO.ANESPROP2 ---
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 Walks 3-4 miles daily without CP/SOB PMFSH Active Problems Active Problems: All Active Problems (Updated 10/02/22 @ 10:58 by Eloy Mo MD) Squamous cell cancer of lip (Acute) BPH w urinary obs/LUTS (Acute) Right rotator cuff tendonitis (Acute) Gross hematuria (Acute) History of creation of ostomy (Acute) Crohn's disease (Acute) Calculus of kidney (Acute) History of esophagogastroduodenoscopy (EGD) (Acute) Ulcerative colitis (Acute) Past Medical History Medical History CAD (coronary artery disease) Calculus of kidney Crohn disease Diabetes mellitus Elevated cholesterol Enlarged prostate Gout Lesion of lip Nephrolithiasis Squamous cell cancer of lip Family History Family History Father Colon cancer Mother No problems noted. Paternal Grandfather Cancer of unknown origin Family history of problems with anesthesia: No Surgical History Surgical History H/O cystoscopy H/O ileostomy H/O thumb surgery History of biopsy (09/25/22) History of esophagogastroduodenoscopy (EGD) History of quadruple bypass (~10/2016) History of Problems with Anesthesia: No Social History Social History Patient Tobacco Use Status: Former Tobacco user Quit Date: 40 yr ago Meds Allergies Allergy/AdvReac Type Severity Reaction Status Date / Time infliximab [From Remicade] Allergy Severe CHEST,ARM Verified 10/17/22 07:34 PAIN azathioprine [From Imuran] Allergy Intermediate LOWERED Verified 10/17/22 07:34 WBC'S Iodinated Contrast Media Allergy Intermediate CHILLS,RASH Verified 10/17/22 07:34 [IV Dye, Iodine Containing] ,SWEATS alendronate sodium Allergy Mild HIVES Verified 10/17/22 07:34 [From FOSAMAX] amoxicillin [AMOXICILLIN] Allergy Mild HIVES Verified 10/17/22 07:34 ceftriaxone [From ROCEPHIN] Allergy Mild HIVES Verified 10/17/22 07:34 omeprazole [From PRILOSEC] Allergy Mild HIVES Verified 10/17/22 07:34 sulfamethoxazole Allergy Mild HIVES Verified 10/17/22 07:34 [From Bactrim] lansoprazole [Prevpac] Allergy Unknown Unknown Verified 10/17/22 07:34 penicillin V Allergy Unknown Unknown Verified 10/17/22 07:34 trimethoprim [From Bactrim] Allergy Unknown HIVES Verified 10/17/22 07:34 SURGICAL MESH Allergy Unknown Unknown Uncoded 10/02/22 10:45 Home Medications Medication Instructions Recorded Confirmed Last Taken Type allopurinol 100 mg tablet 200 mg PO DAILY 09/14/20 10/17/22 Unknown History aspirin 81 mg tablet,delayed 81 mg PO DAILY 09/14/20 10/17/22 Unknown History release atorvastatin 80 mg tablet 80 mg PO BEDTIME 09/14/20 10/17/22 Unknown History dapagliflozin 5 mg tablet 5 mg PO DAILY 09/14/20 10/17/22 Unknown History metoprolol succinate 25 mg 25 mg PO DAILY 09/14/20 10/17/22 10/17/22 06:30 History tablet,extended release 24 hr pantoprazole 40 mg tablet,delayed 40 mg PO DAILY 09/14/20 10/17/22 Unknown History release potassium citrate 10 mEq (1,080 10 meq PO BID 10/05/21 10/17/22 Unknown History mg) tablet,extended release Exam Exam Date and Time: October 16, 2022 0853 Height,Weight and Vital Signs: Height 5 ft 10.5 in Weight 86.353 kg Narrative Narrative: Stress ECHO 2021 Negative for ischemia at high exercise effort and excellent level of stress. Resting inferolateral wall motion abnormality improves with exercise. Assessment and Plan Final Anesthetic Review Family History of Problems with Anesthesia: No History of Problems with Anesthesia: No
[2022-10-17 07:49] VITALS: BP 158/80; PULSE 61; RESP 15; TEMP 36.1; O2SAT 98
--- NOTE | 2022-10-17 07:53 | P.CONAN_ITS ---
[facility] Active Problems Active Problems: All Active Problems (Updated 10/17/22 @ 07:37 by Zoe Quinn RN) Ulcerative colitis (Acute) Crohn's disease (Acute) History of creation of ostomy (Acute) Gross hematuria (Acute) Right rotator cuff tendonitis (Acute) BPH w urinary obs/LUTS (Acute) Squamous cell cancer of lip (Acute) Calculus of kidney (Acute) History of esophagogastroduodenoscopy (EGD) (Acute) Past Medical History Medical History CAD (coronary artery disease) Calculus of kidney Crohn disease Diabetes mellitus Elevated cholesterol Enlarged prostate Gout Lesion of lip Nephrolithiasis Squamous cell cancer of lip Family History Family History Father Colon cancer Mother No problems noted. Paternal Grandfather Cancer of unknown origin Family history of problems with anesthesia: No Surgical History Surgical History H/O cystoscopy H/O ileostomy H/O thumb surgery History of biopsy (09/25/22) History of esophagogastroduodenoscopy (EGD) History of quadruple bypass (~10/2016) History of Problems with Anesthesia: No Social History Social History Patient Tobacco Use Status: Former Tobacco user Quit Date: 40 yr ago Use of substances other than those prescribed or required for medical reasons: No Are you DNR?: No Advance Directives: No Advance Directives Information Provided: Yes Meds Allergies Allergy/AdvReac Type Severity Reaction Status Date / Time infliximab [From Remicade] Allergy Severe CHEST,ARM Verified 10/17/22 07:34 PAIN azathioprine [From Imuran] Allergy Intermediate LOWERED Verified 10/17/22 07:34 WBC'S Iodinated Contrast Media Allergy Intermediate CHILLS,RASH Verified 10/17/22 07:34 [IV Dye, Iodine Containing] ,SWEATS alendronate sodium Allergy Mild HIVES Verified 10/17/22 07:34 [From FOSAMAX] amoxicillin [AMOXICILLIN] Allergy Mild HIVES Verified 10/17/22 07:34 ceftriaxone [From ROCEPHIN] Allergy Mild HIVES Verified 10/17/22 07:34 omeprazole [From PRILOSEC] Allergy Mild HIVES Verified 10/17/22 07:34 sulfamethoxazole Allergy Mild HIVES Verified 10/17/22 07:34 [From Bactrim] lansoprazole [Prevpac] Allergy Unknown Unknown Verified 10/17/22 07:34 penicillin V Allergy Unknown Unknown Verified 10/17/22 07:34 trimethoprim [From Bactrim] Allergy Unknown HIVES Verified 10/17/22 07:34 SURGICAL MESH Allergy Unknown Unknown Uncoded 10/02/22 10:45 Active Medications: Current Medications Lactated Ringer's (Lr) 1,000 mls @ 100 mls/hr IVCONT .Q10H UMAIR Vancomycin HCl 1,000 mg/ (Sodium Chloride) 270 mls @ 270 mls/hr IV PREOP ONE Stop: 10/17/22 08:25 Pharmacy Consult (Consult Rx Vancomycin Dosing) 1 each MISCELLANE DAILY PRN PRN Reason: Consult order Home Medications Medication Instructions Recorded Confirmed Last Taken Type allopurinol 100 mg tablet 200 mg PO DAILY 09/14/20 10/17/22 Unknown History aspirin 81 mg tablet,delayed 81 mg PO DAILY 09/14/20 10/17/22 Unknown History release atorvastatin 80 mg tablet 80 mg PO BEDTIME 09/14/20 10/17/22 Unknown History dapagliflozin 5 mg tablet 5 mg PO DAILY 09/14/20 10/17/22 Unknown History metoprolol succinate 25 mg 25 mg PO DAILY 09/14/20 10/17/22 10/17/22 06:30 History tablet,extended release 24 hr pantoprazole 40 mg tablet,delayed 40 mg PO DAILY 09/14/20 10/17/22 Unknown History release potassium citrate 10 mEq (1,080 10 meq PO BID 10/05/21 10/17/22 Unknown History mg) tablet,extended release Exam Exam Date and Time: October 17, 2022 0753 Height,Weight and Vital Signs: Height 5 ft 10.5 in Weight 86.353 kg Airway Mallampati Class: II TM Dist: >3cm Neck ROM: Full Denture: Upper and Lower Heart: RRR Lungs: CTA Assessment and Plan Final Anesthetic Review Family History of Problems with Anesthesia: No History of Problems with Anesthesia: No ASA Class: II Final Preanesthetic Review: Meds/Allgs Chart Reviewed, Consent Obtained/Reviewed and Anes Risks/Benef Reviewed Patient Risk: Low Procedure Risk: Low Anesthetic Plan Anesthetic Plan: GA Disposition: Standard PACU
[2022-10-17] MEDS: vancomycin HCL 1,500 MG in 0.9 % Sodium Chloride 500 ML 333.33 MG IV (08:19)
[2022-10-17] MEDS: Lactated Ringers 1,000 ML 100 ML IVCONT (08:20)
[2022-10-17 08:27] LABS: Glucose, Whole Blood 189 mg/dL (60-115)
--- NOTE | 2022-10-17 08:27 | MHC.SHP ---
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 Allergies: Allergies Allergy/AdvReac Type Severity Reaction Status Date / Time infliximab [From Remicade] Allergy Severe CHEST,ARM Verified 10/17/22 07:34 PAIN azathioprine [From Imuran] Allergy Intermediate LOWERED Verified 10/17/22 07:34 WBC'S Iodinated Contrast Media Allergy Intermediate CHILLS,RASH Verified 10/17/22 07:34 [IV Dye, Iodine Containing] ,SWEATS alendronate sodium Allergy Mild HIVES Verified 10/17/22 07:34 [From FOSAMAX] amoxicillin [AMOXICILLIN] Allergy Mild HIVES Verified 10/17/22 07:34 ceftriaxone [From ROCEPHIN] Allergy Mild HIVES Verified 10/17/22 07:34 omeprazole [From PRILOSEC] Allergy Mild HIVES Verified 10/17/22 07:34 sulfamethoxazole Allergy Mild HIVES Verified 10/17/22 07:34 [From Bactrim] lansoprazole [Prevpac] Allergy Unknown Unknown Verified 10/17/22 07:34 penicillin V Allergy Unknown Unknown Verified 10/17/22 07:34 trimethoprim [From Bactrim] Allergy Unknown HIVES Verified 10/17/22 07:34 SURGICAL MESH Allergy Unknown Unknown Uncoded 10/02/22 10:45 Plan Diagnosis/Plan: Unchanged I have reviewed the history and physical and performed a pertinent physical examination on my patient. No changes have occurred unless specified. Time Spent With Patient Time: Total time managing care of this patient today ____ minutes.
--- NOTE | 2022-10-17 10:24 | P.OP_ITS ---
Operative Note Operative Note Date of Service: 10/17/22 Narrative: Preoperative diagnosis:Squamous cell carcinoma lower left lip Postoperative diagnosis: same Procedure: wide excision squamous cell carcinoma left lower left Surgeon: Eloy Mo MD [employer] Supervisor: Yolanda Sánchez PA-C Anesthesia: general endotracheal Indications for procedure: 77-year-old male patient presenting with a crusted lesion of the left lower lip, punch biopsy proven squamous cell carcinoma. Operative findings: Lesion excised with 2 mm margins. Lateral margin evaluated with frozen section confirmed margin Specimen: wide excision left lower lip squamous cell carcinoma, lateral margin Estimated blood loss: less than 2 mL Complications: none Procedure details: patient was brought to the OR and placed in a supine position. After administering general anesthesia patient's lip was prepped with Betadine and draped in a sterile fashion. A surgical time-out was called the consent confirmed. Patient received preoperative antibiotics and Venodyne boots were in place. Local anesthesia was then infiltrated around the left lower lip squamous cell lesion. An elliptical incision oriented perpendicular to the vermilion border was then a scalpel and carried out through subcutaneous tissue. 2 mm margins were obtained from the palpable lesion. Electrocautery was then used to dissect the lesion off of the subcutaneous tissue. Stasis was assured all times using electrocautery. An area of thickened tissue was noted in the left lateral incision. This was sent as a frozen section. Frozen section revealed no evidence of malignancy in specimens obtained. Dermis was then reapproximated using interrupted 3-0 Polysorb sutures. Mucosal surface was then closed using interrupted 4-0 chromic sutures. Skin was reapproximated using interrupted 5 0 nylon suture. Bacitracin ointment was then applied to the wound. Patient tolerated the procedure well. Sponge, instrument, and needle counts reported as correct. The patient was transferred to PACU in stable condition.
[2022-10-17 10:33] VITALS: BP 182/96; PULSE 86; RESP 16; TEMP 36.1; O2SAT 95
[2022-10-17 10:38] VITALS: BP 176/96; PULSE 73; RESP 16; O2SAT 96
[2022-10-17 10:43] VITALS: BP 160/92; PULSE 70; RESP 16; O2SAT 96
[2022-10-17 10:48] VITALS: BP 169/91; PULSE 77; RESP 20; TEMP 36.4; O2SAT 97
[2022-10-17 11:03] VITALS: BP 174/92; PULSE 68; RESP 18; TEMP 36.6
== END 2022-10-17 11:40 | disposition home or self-care (01) ==
PROVIDERS: PCP Internal Medicine; Visit Provider Surgery
PROC: (CPT 11640; principal; 2022-10-17 09:10)
DX: C44.02 Squamous cell carcinoma of skin of lip (principal); L56.8 Other specified acute skin changes due to ultraviolet radiation; L57.8 Other skin changes due to chronic exposure to nonionizing radiation; X32.XXXA Exposure to sunlight, initial encounter; Y93.9 Activity, unspecified; Y92.9 Unspecified place or not applicable; Y99.9 Unspecified external cause status; E11.9 Type 2 diabetes mellitus without complications; I25.10 Atherosclerotic heart disease of native coronary artery without angina pectoris; Z95.1 Presence of aortocoronary bypass graft; Z79.84 Long term (current) use of oral hypoglycemic drugs; Z79.82 Long term (current) use of aspirin; Z79.899 Other long term (current) drug therapy; Z88.0 Allergy status to penicillin; Z88.1 Allergy status to other antibiotic agents; Z88.2 Allergy status to sulfonamides; Z88.8 Allergy status to other drugs, medicaments and biological substances; Z91.041 Radiographic dye allergy status; Z87.891 Personal history of nicotine dependence
CPT/HCPCS: 11640; 82947; 88305; 88331; J1100; J2250; J2405; J3010; J3371

== ENCOUNTER → 2022-10-30 11:08 | Outpatient (BNVA) | payer MEDICARE, OTHER, SELFPAY | PROVIDERS: PCP Internal Medicine; Visit Provider Physician Assistant Surgical ==

== ENCOUNTER 2022-12-28 11:33 | Outpatient (REF) | payer MEDICARE, OTHER, SELFPAY ==
[2022-12-28 13:23] LABS: MANUAL DIFF FLAG NO
[2022-12-28 13:25] LABS: Basophils Percent Auto 0.4 % (0-2); Eosinophils Absolute Auto 0.1 X10*3/uL (0.0-0.4); Eosinophils Percent Auto 1.4 % (0-4); Hematocrit 49.1 % (42.0-52.0); Hemoglobin 15.1 g/dl (14.0-18.0); Imm Gran Abs Auto 0.01 X10*3/uL (0.00-0.03); Imm Gran Pct Auto 0.2 % (0.0-0.4); Lymphocytes Absolute Auto 0.8 X10*3/uL (1.2-4.9); Lymphocytes Percent Auto 15.5 % (20-40); Mean Corpuscular HGB Conc 30.8 g/dl (31.0-36.0); Mean Corpuscular Volume 84.7 fL (80.0-98.0); Mean Platelet Volume 11.8 fL (9.4-12.4); Monocytes Absolute Auto 0.5 X10*3/uL (0.1-1.2); Monocytes Percent Auto 9.4 % (2-11); Neutrophils Absolute Auto 3.6 x10*3/uL (2.0-8.3); Neutrophils Percent Auto 73.1 % (45-73); Platelet Count 169 X10*3/uL (160-400); Red Cell Distribution Width 15.9 % (11.0-16.0); White Blood Count 4.9 X10*3/uL (4.8-10.8)
[2022-12-28 14:02] LABS: Estimated Average Glucose 143 mg/dL; Hemoglobin A1c % 6.6 %
[2022-12-28 14:56] LABS: Creatinine Urine 49.75 mg/dL; Microalbum/Creatinine Ratio Ur 44.2 ug/mg cr
[2022-12-28 14:58] LABS: Alanine Aminotransferase 21 U/L (0-40); Albumin Level 4.3 g/dL (3.5-5.0); Alkaline Phosphatase 79 U/L (39-117); Anion Gap 13 (12-20); Aspartate Amino Transferase 25 U/L (5-37); Bilirubin Total 1.1 mg/dL (0.0-1.0); Blood Urea Nitrogen 22 mg/dL (9-16); Calcium 9.6 mg/dL (8.4-10.2); Carbon Dioxide 24 mmol/L (22-29); Chloride 108 mmol/L (96-108); Estimated Glomerular Filt Rate 43; Glucose Random 220 mg/dL (60-115); Potassium 4.5 mmol/L (3.3-5.1); Sodium 140 mmol/L (135-145)
== END 2022-12-28 11:34 | disposition home or self-care (01) ==
LOC: HO.10HDL 11:33
PROVIDERS: Visit Provider Internal Medicine
DX: E11.9 Type 2 diabetes mellitus without complications (principal); N18.9 Chronic kidney disease, unspecified; I25.10 Atherosclerotic heart disease of native coronary artery without angina pectoris
CPT/HCPCS: 36415; 80053; 82043; 83036; 85025

== ENCOUNTER 2023-01-22 12:44 | Outpatient (REF) | payer MEDICARE, OTHER, SELFPAY ==
--- NOTE | ~2023-01-22 | US_ITS ---
EXAMINATION: US RETROPERITONEAL LIMITED (RENAL ONLY) CLINICAL INFORMATION: Calculus of kidney. COMPARISON: Ultrasound retroperitoneal limited (renal only) 04/13/2022 and 09/19/2021. CT abdomen and pelvis without contrast 09/02/2018. TECHNIQUE: Real-time imaging of the kidneys. FINDINGS: RIGHT KIDNEY: 12.0 x 5.2 x 5.4 cm (SAG x AP x TRV). The kidney is normal in size, contour, and echogenicity. Renal cortical thickness is normal. No renal calculi or hydronephrosis. 8 mm and 9 mm simple cysts in the mid and upper kidney. No follow-up imaging is recommended. 2 mm parenchymal calcification in the mid kidney. LEFT KIDNEY: 9.4 x 5.0 x 5.0 cm (SAG x AP x TRV). The kidney is normal in size, contour, and echogenicity. Renal cortical thickness is normal. No renal calculi or hydronephrosis. 3.5 cm thinly septated cyst in the lower pole. No follow-up imaging is recommended. There is a 4.1 cm echogenic heterogeneous mass along the lateral aspect of the kidney towards lower pole which appears to be related to fat necrosis as described previously. Allowing for differences in imaging plane this is likely not significantly changed in size as it measured as large as 4.7 x 1.7 x 3.[address] from 09/02/2018. US/US renal BI IMPRESSION: No nephrolithiasis or hydronephrosis. Stable exophytic or perinephric echogenic mass along the lower pole the left kidney which based on prior CT imaging is consistent with fat necrosis.
== END 2023-01-22 12:45 | disposition home or self-care (01) ==
LOC: HO.US 12:44
PROVIDERS: PCP Internal Medicine; Visit Provider Urology
DX: N20.0 Calculus of kidney (principal)
CPT/HCPCS: 76775

== ENCOUNTER 2023-02-12 14:26 | Outpatient (AMB) | payer MEDICARE, OTHER, SELFPAY ==
--- NOTE | 2023-02-12 14:59 | MHC.OFFVIS ---
Intake Intake Visit Reasons: 6M US(SET) Intake Note: Patient is present for Follow Up Ultrasound Urology Med: Finasteride Antibiotic Allergy:Penicillin. Sulfa, Amoxicillin, Trimethroprim Blood Thinner: Aspirin Pharmacy: [facility] Allergies infliximab [From Remicade] Allergy (Severe, Verified 02/12/23 15:00) CHEST,ARM PAIN azathioprine [From Imuran] Allergy (Intermediate, Verified 02/12/23 15:00) LOWERED WBC'S Iodinated Contrast Media [IV Dye, Iodine Containing] Allergy (Intermediate, Verified 02/12/23 15:00) CHILLS,RASH,SWEATS alendronate sodium [From FOSAMAX] Allergy (Mild, Verified 02/12/23 15:00) HIVES amoxicillin [AMOXICILLIN] Allergy (Mild, Verified 02/12/23 15:00) HIVES ceftriaxone [From ROCEPHIN] Allergy (Mild, Verified 02/12/23 15:00) HIVES omeprazole [From PRILOSEC] Allergy (Mild, Verified 02/12/23 15:00) HIVES sulfamethoxazole [From Bactrim] Allergy (Mild, Verified 02/12/23 15:00) HIVES lansoprazole [Prevpac] Allergy (Unknown, Verified 02/12/23 15:00) Unknown penicillin V Allergy (Unknown, Verified 02/12/23 15:00) Unknown trimethoprim [From Bactrim] Allergy (Unknown, Verified 02/12/23 15:00) HIVES SURGICAL MESH Allergy (Unknown, Uncoded 02/12/23 15:00) Unknown Medication List - Last Reconciled 02/12/23 by Micah Canela MD allopurinol 200 mg PO DAILY aspirin 81 mg PO DAILY atorvastatin 80 mg PO BEDTIME dapagliflozin propanediol 5 mg PO DAILY finasteride 5 mg PO DAILY 90 days metoprolol succinate ER 25 mg PO DAILY oxycodone 5 mg PO Q6H PRN pantoprazole 40 mg PO DAILY potassium citrate ER 10 mEq PO BID HPI HPI Comments History of Present Illness Details Jamie is a pleasant male. He is a patient Dr. Calvert. He is seen for the following urologic conditions - nephrolithiasis - lower urinary tract - neovascularity Continue finasteride Nephrolithiasis Background Crohn's disease with ileostomy high output Prior history of stones Imaging - 09/12 renal ultrasound bilateral cysts, no nephrolithiasis - 04/14 renal ultrasound bilateral cysts no nephrolithiasis - 02/13 renal ultrasound. No evidence of stones.Stable exophytic or perinephric echogenic mass along the lower pole the left kidney which based on prior CT imaging is consistent with fat necrosis. Intervention - multiple prior renal intervention Therapeutic plan - fluid intake - use of Tums with primary meal each day as oxalate binder - interval surveillance [facility] Medical History CAD (coronary artery disease) Calculus of kidney Crohn disease Diabetes mellitus Elevated cholesterol Enlarged prostate Gout Lesion of lip Nephrolithiasis Squamous cell cancer of lip Surgical History H/O cystoscopy H/O ileostomy H/O squamous cell carcinoma excision (10/17/22) H/O thumb surgery History of biopsy (09/25/22) History of esophagogastroduodenoscopy (EGD) History of quadruple bypass (~10/2016) Family History Father Colon cancer Mother No problems noted. Paternal Grandfather Cancer of unknown origin Social History Patient Tobacco Use Status: Former Tobacco user Quit Date: 40 yr ago Review of Systems Const Denies chills and Denies fever(s) Card Reports no additional complaints and Denies syncope Resp Denies cough GI Denies abdominal pain and Denies heartburn Reports as per HPI and Denies change in libido Neuro Denies syncope Psych Denies change in libido Endo Denies change in libido Physical Exam Const General: cooperative, healthy appearing, comfortable and no acute distress Orientation/consciousness: patient oriented x3 HEENT Face and sinus: Yes normal facial exam Mouth: moist mucous membranes Neck Neck: Yes normal visual inspection, Yes full ROM and Yes trachea midline Chest Chest palpation & inspection: normal inspection of the chest Resp Effort & Inspection: normal respiratory effort, able to speak in complete sentences and no respiratory distress GI Inspection: Yes normal to inspection Back/Spine/Pelvis Cervical Spine: normal cervical lordosis Thoracic/Lumbar Spine: thoracic and lumbar spine normal to inspection Skin General skin exam: no rashes or lesions noted Neuro General: patient oriented x3, gait normal, tone normal and moves all extremities Extrem General: Yes normal to inspection and Yes capillary refill normal Assessment & Plan Assessment & Plan (1) BPH w urinary obs/LUTS: Code(s): N40.1 - Benign prostatic hyperplasia with lower urinary tract symptoms; N13.8 - Other obstructive and reflux uropathy (2) Calculus of kidney: Code(s): N20.0 - Calculus of kidney Plan One year follow-up imaging Orders: Orders US renal BI 364 Days N20.0 - Calculus of kidney Medications: Refilled finasteride 5 mg PO DAILY 90 tabs 3RF 90 days N40.1 - Benign prostatic hyperplasia with lower urinary tract symptoms, N13.8 - Other obstructive and reflux uropathy, R33.9 - Retention of urine, unspecified Patient Instructions: Imaging studies, laboratory and physical exam results were discussed and reviewed in detail. No major barriers to patient understanding were identified. An opportunity to ask questions regarding the treatment plan was provided. All questions were answered. The patient expressed understanding and agreement with the above treatment plan. The patient is aware they should contact our office by phone for worsening of their current condition or the appearance of new urologic symptoms. Compliance is encouraged with any medications and followup testing that is ordered. It is a privilege to participate in the urologic care of your patient. If you have any questions or concerns regarding treatment for the above conditions, or other urologic issues, please do not hesitate to contact me. The office telephone contact is [phone]. This note is constructed using voice recognition software. While every effort has been made to ensure accuracy health and wellness director errors may have been included. Yours sincerely, Dr Micah Canela MD, [facility] - Urology Providers of Expert, Compassionate Care for the Genitourinary System Coding Level of Care Code Est Pt Level 4 (60150) Diagnoses BPH w urinary obs/LUTS N40.1; N13.8 Calculus of kidney N20.0
== END 2023-02-12 15:41 | disposition home or self-care (01) ==
PROVIDERS: PCP Internal Medicine; Visit Provider Urology
DX: N40.1 Benign prostatic hyperplasia with lower urinary tract symptoms (principal); N13.8 Other obstructive and reflux uropathy; N20.0 Calculus of kidney
CPT/HCPCS: 99214

== ENCOUNTER → 2023-02-12 14:26 | Outpatient (BNVA) | payer MEDICARE, OTHER, SELFPAY | PROVIDERS: Visit Provider Urology | DX: N40.1 Benign prostatic hyperplasia with lower urinary tract symptoms (principal); N13.8 Other obstructive and reflux uropathy; N20.0 Calculus of kidney | CPT/HCPCS: 99212 ==

== ENCOUNTER 2023-05-23 13:42 | Outpatient (AMB) | payer MEDICARE, OTHER, SELFPAY ==
--- NOTE | 2023-05-23 13:55 | A.OFFVIS_ITS ---
Intake Vital Signs 05/23/23 13:56 Height 5 ft 10.5 in Weight 192 lb BMI 27.2 BP 122/60 Blood Pressure Location Lt brachial Position Sitting Pulse 93 Intake Visit Reasons: sebaceous cyst of back Intake Note: This patient presents for an assessment for sebaceous cyst of back. Patient c/o; reports draining, reports recurrent cyst. [employer] Supervisor Required: No Accompanied by: Self / Same As Patient Allergies infliximab [From Remicade] Allergy (Severe, Verified 05/23/23 14:20) CHEST,ARM PAIN azathioprine [From Imuran] Allergy (Intermediate, Verified 05/23/23 14:20) LOWERED WBC'S Iodinated Contrast Media [IV Dye, Iodine Containing] Allergy (Intermediate, Verified 05/23/23 14:20) CHILLS,RASH,SWEATS alendronate sodium [From FOSAMAX] Allergy (Mild, Verified 05/23/23 14:20) HIVES amoxicillin [AMOXICILLIN] Allergy (Mild, Verified 05/23/23 14:20) HIVES ceftriaxone [From ROCEPHIN] Allergy (Mild, Verified 05/23/23 14:20) HIVES omeprazole [From PRILOSEC] Allergy (Mild, Verified 05/23/23 14:20) HIVES sulfamethoxazole [From Bactrim] Allergy (Mild, Verified 05/23/23 14:20) HIVES lansoprazole [Prevpac] Allergy (Unknown, Verified 05/23/23 14:20) Unknown penicillin V Allergy (Unknown, Verified 05/23/23 14:20) Unknown trimethoprim [From Bactrim] Allergy (Unknown, Verified 05/23/23 14:20) HIVES SURGICAL MESH Allergy (Unknown, Uncoded 05/23/23 14:20) Unknown Medication List - Last Reconciled 05/23/23 by Hi Aguilar MD allopurinol 200 mg PO DAILY aspirin 81 mg PO DAILY atorvastatin 80 mg PO BEDTIME dapagliflozin propanediol 5 mg PO DAILY finasteride 5 mg PO DAILY 90 days metoprolol succinate ER 25 mg PO DAILY oxycodone 5 mg PO Q6H PRN pantoprazole 40 mg PO DAILY potassium citrate ER 10 mEq PO BID HPI sebaceous cyst of back HPI Details 78-year-old male referred for a sebaceou s cyst of the back. He has had this lump on the upper back which seems to have increased in size over the years. This would sometimes get swollen and had some drainage in the past He says that he had a cyst removed on the exact the same area about 10 years ago twice before by Dr. Manzo. [facility] Medical History Epidermal cyst Enlarged prostate Elevated cholesterol Crohn disease Squamous cell cancer of lip Lesion of lip Calculus of kidney CAD (coronary artery disease) Gout Nephrolithiasis Diabetes mellitus Surgical History H/O squamous cell carcinoma excision (10/17/22) History of biopsy (09/25/22) History of esophagogastroduodenoscopy (EGD) H/O cystoscopy History of quadruple bypass (~10/2016) H/O thumb surgery H/O ileostomy Family History Father Colon cancer Mother No problems noted. Paternal Grandfather Cancer of unknown origin Social History Patient Tobacco Use Status: Former Tobacco user Quit Date: 40 yr ago Review of Systems Const Denies chills and Denies fever(s) Card Denies chest pain, Denies dyspnea and Reports dyspnea on exertion Resp Denies cough, Denies dyspnea and Reports dyspnea on exertion GI Denies hematochezia and Denies change in bowel habits Denies hematuria and Denies difficulty urinating Musc Denies back pain and Denies limited range of motion Neuro Denies focal weakness and Denies convulsions Psych Denies depression and Denies mood swings Physical Exam Const General: comfortable and no acute distress Orientation/consciousness: patient oriented x3 Neck Neck: Yes no lymphadenopathy Resp Auscultation: clear to auscultation bilaterally Cardio Other: Mild holosystolic murmur Rhythm: regular rhythm GI Palpation (GI): Soft to palpation, nontender and no guarding Back/Spine/Pelvis Other: Cystic induration on the upper back, 2.5 cm, nonfluctuant at this time Neuro General: patient oriented x3 Assessment & Plan Assessment & Plan (1) Epidermal cyst: Code(s): L72.0 - Epidermal cyst Plan: I explained the technique of excision of the cyst under local anesthesia. I reviewed the risks including but not limited to bleeding, infections, poor healing, as well as the benefits and alternatives. I explained to him what to expect postoperatively. He wants to proceed. This will be done on his next visit here in the office. Coding Level of Care Code New Pt Level 3 (38135) Diagnoses Epidermal cyst L72.0
[2023-05-23 13:56] VITALS: BP 122/60; PULSE 93; BMI 27.2
== END 2023-05-23 14:52 | disposition home or self-care (01) ==
PROVIDERS: PCP Internal Medicine; Visit Provider Surgery
DX: L72.0 Epidermal cyst (principal)
CPT/HCPCS: 99203; 99213

== ENCOUNTER → 2023-05-23 13:42 | Outpatient (BNVA) | payer MEDICARE, OTHER, SELFPAY | PROVIDERS: PCP Internal Medicine; Visit Provider Surgery | DX: L72.0 Epidermal cyst (principal) | CPT/HCPCS: 99202 ==

== ENCOUNTER 2023-05-24 06:03 | Outpatient (REF) | payer MEDICARE, OTHER, SELFPAY ==
[2023-05-24 06:21] LABS: MANUAL DIFF FLAG NO
[2023-05-24 07:12] LABS: Basophils Percent Auto 0.7 % (0-2); Eosinophils Absolute Auto 0.2 X10*3/uL (0.0-0.4); Eosinophils Percent Auto 2.5 % (0-4); Hematocrit 37.6 % (42.0-52.0); Hemoglobin 10.3 g/dl (14.0-18.0); Imm Gran Abs Auto 0.03 X10*3/uL (0.00-0.03); Imm Gran Pct Auto 0.5 % (0.0-0.4); Lymphocytes Absolute Auto 1.1 X10*3/uL (1.2-4.9); Lymphocytes Percent Auto 17.6 % (20-40); Mean Corpuscular HGB Conc 27.4 g/dl (31.0-36.0); Mean Corpuscular Hemoglobin 20.7 pg (27.0-33.0); Mean Corpuscular Volume 75.7 fL (80.0-98.0); Mean Platelet Volume 10.7 fL (9.4-12.4); Monocytes Absolute Auto 0.6 X10*3/uL (0.1-1.2); Neutrophils Absolute Auto 4.1 x10*3/uL (2.0-8.3); Neutrophils Percent Auto 68.7 % (45-73); Platelet Count 244 X10*3/uL (160-400); Red Blood Count 4.97 X10*6/uL (4.60-5.80); Red Cell Distribution Width 16.3 % (11.0-16.0)
[2023-05-24 07:19] LABS: Estimated Average Glucose 171 mg/dL; Hemoglobin A1c % 7.6 % (<6.0)
[2023-05-24 07:29] LABS: Creatinine Urine 109.48 mg/dL; Microalbum/Creatinine Ratio Ur 40.1 ug/mg cr (<30)
[2023-05-24 07:38] LABS: Alanine Aminotransferase 16 U/L (0-40); Albumin Level 4.3 g/dL (3.5-5.0); Alkaline Phosphatase 93 U/L (39-117); Anion Gap 13 (12-20); Aspartate Amino Transferase 20 U/L (5-37); Bilirubin Total 0.6 mg/dL (0.0-1.0); Blood Urea Nitrogen 26 mg/dL (9-16); Calcium 9.4 mg/dL (8.4-10.2); Carbon Dioxide 24 mmol/L (22-29); Chloride 109 mmol/L (96-108); Cholesterol 82 mg/dL (<200); Estimated Glomerular Filt Rate 40; Glucose Fasting 199 mg/dL (60-99); HDL Cholesterol 30 mg/dL (>40); LDL Cholesterol Calculated 26 mg/dL (<100); Potassium 4.7 mmol/L (3.3-5.1); Sodium 141 mmol/L (135-145); Total Protein 7.4 g/dL (6.5-8.0); Triglycerides 134 mg/dL (<150)
[2023-05-24 07:48] LABS: Uric Acid 5.8 mg/dL (3.4-7.0)
[2023-05-24 07:50] LABS: Prostate Specific Antigen 1.06 ng/mL (<0.05-4.0)
== END 2023-05-24 06:04 | disposition home or self-care (01) ==
LOC: HO.LAB 06:03
PROVIDERS: PCP Internal Medicine; Visit Provider Internal Medicine
DX: Z12.5 Encounter for screening for malignant neoplasm of prostate (principal); I12.9 Hypertensive chronic kidney disease with stage 1 through stage 4 chronic kidney disease, or unspecified chronic kidney disease; E11.22 Type 2 diabetes mellitus with diabetic chronic kidney disease; N18.9 Chronic kidney disease, unspecified; M10.9 Gout, unspecified; E78.00 Pure hypercholesterolemia, unspecified; I25.10 Atherosclerotic heart disease of native coronary artery without angina pectoris
CPT/HCPCS: 36415; 80053; 80061; 82043; 82570; 83036; 84153; 84550; 85025

== ENCOUNTER 2023-06-03 14:37 | Outpatient (AMB) | payer MEDICARE, OTHER, SELFPAY ==
[2023-06-03 14:54] VITALS: BP 155/69; PULSE 86; BMI 27.1
--- NOTE | 2023-06-03 14:54 | A.OFFVIS_ITS ---
Intake Vital Signs 06/03/23 14:54 Height 5 ft 10.5 in Weight 191 lb 4 oz BMI 27.1 BP 155/69 H Blood Pressure Location Lt brachial Position Sitting Pulse 86 Intake Visit Reasons: Exc sebaceous cyst of back Intake Note: This patient presents for in-office procedure for excision of sebaceous cyst of the back. Patient c/o; reports no changes at this time. Sheet Manufacturing Supervisor Required: No Accompanied by: Self / Same As Patient Allergies infliximab [From Remicade] Allergy (Severe, Verified 06/03/23 14:54) CHEST,ARM PAIN azathioprine [From Imuran] Allergy (Intermediate, Verified 06/03/23 14:54) LOWERED WBC'S Iodinated Contrast Media [IV Dye, Iodine Containing] Allergy (Intermediate, Verified 06/03/23 14:54) CHILLS,RASH,SWEATS alendronate sodium [From FOSAMAX] Allergy (Mild, Verified 06/03/23 14:54) HIVES amoxicillin [AMOXICILLIN] Allergy (Mild, Verified 06/03/23 14:54) HIVES ceftriaxone [From ROCEPHIN] Allergy (Mild, Verified 06/03/23 14:54) HIVES omeprazole [From PRILOSEC] Allergy (Mild, Verified 06/03/23 14:54) HIVES sulfamethoxazole [From Bactrim] Allergy (Mild, Verified 06/03/23 14:54) HIVES lansoprazole [Prevpac] Allergy (Unknown, Verified 06/03/23 14:54) Unknown penicillin V Allergy (Unknown, Verified 06/03/23 14:54) Unknown trimethoprim [From Bactrim] Allergy (Unknown, Verified 06/03/23 14:54) HIVES SURGICAL MESH Allergy (Unknown, Uncoded 06/03/23 14:54) Unknown [facility] Medical History Epidermal cyst Enlarged prostate Elevated cholesterol Crohn disease Squamous cell cancer of lip Lesion of lip Calculus of kidney CAD (coronary artery disease) Gout Nephrolithiasis Diabetes mellitus Surgical History H/O squamous cell carcinoma excision (10/17/22) History of biopsy (09/25/22) History of esophagogastroduodenoscopy (EGD) H/O cystoscopy History of quadruple bypass (~10/2016) H/O thumb surgery H/O ileostomy Family History Father Colon cancer Mother No problems noted. Paternal Grandfather Cancer of unknown origin Social History Patient Tobacco Use Status: Former Tobacco user Quit Date: 40 yr ago Physical Exam Vital Signs: Last Vital Signs Pulse 86 06/03/23 14:54 BP 155/69 H 06/03/23 14:54 BMI result Body Mass Index 27.1 Office Procedures Excision Details: He was placed in prone position. Consent had been given. Area of the induration was prepped and draped. Lidocaine 1% was used for local anesthesia. I made an elliptical incision on the skin surrounding this induration using blade 15. This was carried down through the full-thickness of skin and s ubcutaneous fat to excise this entire indurated area. Sent as a specimen. The area of excision was 2.5 cm in diameter I closed the incision with full-thickness nylon 3-0 interrupted sutures. Dres sings were applied. The procedure was completed. He tolerated procedure well. There were no immediate complications. Estimated blood loss about 10 cc [id number]/arms/legs 2.1-3cm Procedure code (CPT) selection complete Assessment & Plan Assessment & Plan (1) Epidermal cyst: Code(s): L72.0 - Epidermal cyst Plan: Excision was done in the office. He was given wound care instructions. He can take Tylenol and ibuprofen. I will see him in the office for removal sutures in about 2-3 weeks. Coding Level of Care Code Procedure Only Diagnoses Epidermal cyst L72.0 CPT Codes Trunk/Arms/Legs - CPT: 81149-[id number]/arms/legs 2.1-3cm ([id number])
== END 2023-06-03 15:27 | disposition home or self-care (01) ==
PROVIDERS: PCP Internal Medicine; Visit Provider Surgery
DX: L72.0 Epidermal cyst (principal)
CPT/HCPCS: 11403

== ENCOUNTER 2023-06-03 14:37 | Outpatient (REF) | payer MEDICARE, OTHER, SELFPAY | END 2023-06-03 14:38 | disposition home or self-care (01) | LOC: HO.LNP 14:37 | PROVIDERS: PCP Internal Medicine; Visit Provider Surgery | DX: L72.0 Epidermal cyst (principal) | CPT/HCPCS: 11403; 88304 ==

== ENCOUNTER 2023-06-13 09:36 | Outpatient (AMB) | payer MEDICARE, OTHER, SELFPAY ==
[2023-06-13 09:39] VITALS: BP 146/62; PULSE 71; BMI 27.1
--- NOTE | 2023-06-13 09:39 | A.OFFVIS_ITS ---
Intake Vital Signs 06/13/23 09:39 Height 5 ft 10.5 in Weight 191 lb 4.016 oz BMI 27.1 BP 146/62 H Blood Pressure Location Lt brachial Position Sitting Pulse 71 Intake Visit Reasons: S/p in office exc epidermal cyst of back Intake Note: This patient presents for a post-op follow-up assessment status post in office excision sebaceous cyst of back. Patient c/o; reports no changes. Photo Retoucher Required: No Accompanied by: Self / Same As Patient Allergies infliximab [From Remicade] Allergy (Severe, Verified 06/13/23 09:47) CHEST,ARM PAIN azathioprine [From Imuran] Allergy (Intermediate, Verified 06/13/23 09:47) LOWERED WBC'S Iodinated Contrast Media [IV Dye, Iodine Containing] Allergy (Intermediate, Verified 06/13/23 09:47) CHILLS,RASH,SWEATS alendronate sodium [From FOSAMAX] Allergy (Mild, Verified 06/13/23 09:47) HIVES amoxicillin [AMOXICILLIN] Allergy (Mild, Verified 06/13/23 09:47) HIVES ceftriaxone [From ROCEPHIN] Allergy (Mild, Verified 06/13/23 09:47) HIVES omeprazole [From PRILOSEC] Allergy (Mild, Verified 06/13/23 09:47) HIVES sulfamethoxazole [From Bactrim] Allergy (Mild, Verified 06/13/23 09:47) HIVES lansoprazole [Prevpac] Allergy (Unknown, Verified 06/13/23 09:47) Unknown penicillin V Allergy (Unknown, Verified 06/13/23 09:47) Unknown trimethoprim [From Bactrim] Allergy (Unknown, Verified 06/13/23 09:47) HIVES SURGICAL MESH Allergy (Unknown, Uncoded 06/13/23 09:47) Unknown HPI S/p in office exc epidermal cyst of back HPI Details He underwent excision of an epidermal cyst from the back under local anesthesia in the office last 06/03/2023. He tolerated procedure well. He currently denies significant complaints. [facility] Medical History Epidermal cyst Enlarged prostate Elevated cholesterol Crohn disease Squamous cell cancer of lip Lesion of lip Calculus of kidney CAD (coronary artery disease) Gout Nephrolithiasis Diabetes mellitus Surgical History History of removal of cyst (~06/03/23) H/O squamous cell carcinoma excision (10/17/22) History of biopsy (09/25/22) History of esophagogastroduodenoscopy (EGD) H/O cystoscopy History of quadruple bypass (~10/2016) H/O thumb surgery H/O ileostomy Family History Father Colon cancer Mother No problems noted. Paternal Grandfather Cancer of unknown origin Social History Patient Tobacco Use Status: Former Tobacco user Quit Date: 40 yr ago Review of Systems Const Denies chills and Denies fever(s) Physical Exam Const General: comfortable and no acute distress Resp Effort & Inspection: normal respiratory effort Back/Spine/Pelvis Other: Excision site is well healed, not infected, sutures intact Assessment & Plan Assessment & Plan (1) Epidermal cyst: Code(s): L72.0 - Epidermal cyst Plan: Status post excision. His incision is well healed. I removed his sutures. The wound edges remained well apposed His path report confirms a ruptured epidermal cyst. He can follow up on a p.r.n. basis. Coding Level of Care Code Global (45566) Diagnoses Epidermal cyst L72.0
== END 2023-06-13 09:52 | disposition home or self-care (01) ==
PROVIDERS: PCP Internal Medicine; Visit Provider Surgery
DX: L72.0 Epidermal cyst (principal)
CPT/HCPCS: 99024

== ENCOUNTER → 2023-06-13 09:36 | Outpatient (BNVA) | payer MEDICARE, OTHER, SELFPAY | PROVIDERS: PCP Internal Medicine; Visit Provider Surgery | DX: Z09 Encounter for follow-up examination after completed treatment for conditions other than malignant neoplasm (principal); Z87.2 Personal history of diseases of the skin and subcutaneous tissue | CPT/HCPCS: 99212 ==

== ENCOUNTER 2023-10-30 09:51 | Outpatient (REF) | payer MEDICARE, OTHER, SELFPAY ==
[2023-10-30 10:59] LABS: MANUAL DIFF FLAG NO
[2023-10-30 11:09] LABS: Estimated Average Glucose 183 mg/dL
[2023-10-30 11:14] LABS: Basophils Percent Auto 0.5 % (0-2); Eosinophils Absolute Auto 0.2 X10*3/uL (0.0-0.4); Eosinophils Percent Auto 2.9 % (0-4); Hematocrit 36.2 % (42.0-52.0); Hemoglobin 9.7 g/dl (14.0-18.0); Imm Gran Abs Auto 0.01 X10*3/uL (0.00-0.03); Imm Gran Pct Auto 0.2 % (0.0-0.4); Lymphocytes Percent Auto 17.8 % (20-40); Mean Corpuscular HGB Conc 26.8 g/dl (31.0-36.0); Mean Corpuscular Hemoglobin 18.1 pg (27.0-33.0); Mean Corpuscular Volume 67.7 fL (80.0-98.0); Mean Platelet Volume 9.9 fL (9.4-12.4); Monocytes Absolute Auto 0.6 X10*3/uL (0.1-1.2); Monocytes Percent Auto 11.5 % (2-11); Neutrophils Absolute Auto 3.7 x10*3/uL (2.0-8.3); Neutrophils Percent Auto 67.1 % (45-73); Platelet Count 262 X10*3/uL (160-400); Red Blood Count 5.35 X10*6/uL (4.60-5.80); White Blood Count 5.5 X10*3/uL (4.8-10.8)
[2023-10-30 11:43] LABS: Alanine Aminotransferase 15 U/L (0-40); Albumin Level 4.4 g/dL (3.5-5.0); Alkaline Phosphatase 77 U/L (39-117); Anion Gap 15 (12-20); Aspartate Amino Transferase 16 U/L (5-37); Bilirubin Total 0.8 mg/dL (0.0-1.0); Blood Urea Nitrogen 26 mg/dL (9-16); Calcium 9.7 mg/dL (8.4-10.2); Carbon Dioxide 21 mmol/L (22-29); Chloride 108 mmol/L (96-108); Estimated Glomerular Filt Rate 44; Glucose Random 205 mg/dL (60-115); Magnesium 2.3 mg/dL (1.6-2.6); Potassium 4.7 mmol/L (3.3-5.1); Sodium 139 mmol/L (135-145); Total Protein 7.4 g/dL (6.5-8.0)
[2023-10-30 11:57] LABS: Vitamin B12 551 pg/mL (200-900)
== END 2023-10-30 09:52 | disposition home or self-care (01) ==
LOC: HO.10HDL 09:51
PROVIDERS: Referring Provider Internal Medicine Endocrinology, Diabetes & Metabolism; Visit Provider Internal Medicine
DX: I12.9 Hypertensive chronic kidney disease with stage 1 through stage 4 chronic kidney disease, or unspecified chronic kidney disease (principal); E11.22 Type 2 diabetes mellitus with diabetic chronic kidney disease; N18.9 Chronic kidney disease, unspecified; I25.10 Atherosclerotic heart disease of native coronary artery without angina pectoris; Z93.3 Colostomy status
CPT/HCPCS: 36415; 80053; 82607; 83036; 83735; 85025

== ENCOUNTER 2024-02-07 12:22 | Outpatient (REF) | payer MEDICARE, OTHER, SELFPAY ==
--- NOTE | ~2024-02-07 | US_ITS ---
EXAMINATION: US RETROPERITONEAL COMPLETE (RENAL) CLINICAL INFORMATION: Renal calculus.. COMPARISON: Renal ultrasound dated 01/22/2023; CT abdomen and pelvis dated 09/02/2018. TECHNIQUE: Real-time imaging of the kidneys and bladder. FINDINGS: RIGHT KIDNEY: 11.5 x 6.4 x 5.1 cm (SAG x AP x TRV). The kidney is normal in size, contour, and echogenicity. Renal cortical thickness is normal. No definite calculi or focal parenchymal lesions. There are echogenic foci which do not meet formal ultrasound criteria for calculi. No hydronephrosis. At the interpolar aspect, an 8 mm benign, simple cyst is seen, for which no imaging follow-up is recommended. LEFT KIDNEY: 9.3 x 5.6 x 5.5 cm (SAG x AP x TRV). The kidney is normal in size, contour, and echogenicity. Renal cortical thickness is normal. No calculi or focal parenchymal lesions. No hydronephrosis. At the lower pole, a 4.2 cm benign, simple cyst is seen, for which no imaging follow-up is recommended. At the interpolar aspect laterally, there is a 2.8 x 2.5 x 2.1 cm irregularly marginated hypoechoic focus, which may be related to fat necrosis upon correlation with prior CT (09/02/2018; 4:65) and ultrasound examinations. US/US renal BI IMPRESSION: 1. At the lower pole the left kidney, a 2.8 cm irregularly marginated hypoechoic focus is seen. Again, this is felt likely to represent fat necrosis, correlating with prior CT (09/02/2018; 4:65) and ultrasound imaging . 2. No renal calculus or hydronephrosis is seen bilaterally. Electronically signed by: Eloy Walters MD 02/24/2024 10:43 PM EDT RP
== END 2024-02-07 12:23 | disposition home or self-care (01) ==
LOC: HO.US 12:22
PROVIDERS: PCP Internal Medicine; Visit Provider Urology
DX: N20.0 Calculus of kidney (principal)
CPT/HCPCS: 76775

== ENCOUNTER 2024-02-11 09:58 | Outpatient (REF) | payer MEDICARE, OTHER, SELFPAY ==
--- NOTE | ~2024-02-11 | XR_ITS ---
EXAMINATION: XR SHOULDER, RIGHT CLINICAL INFORMATION: Pain COMPARISON: Radiographs dated 05/07/2020 TECHNIQUE: AP external rotation, Grashey, scapular Y, and axillary views of the right shoulder. FINDINGS: Bony alignment and mineralization are normal. The glenohumeral joint is intact. There is a tiny accessory ossification center cephalad to the glenoid. The acromioclavicular and coracoclavicular intervals are normal. No fracture or dislocation is seen. There is a small distal acromial undersurface osteophyte, and there is cortical irregularity of the greater tuberosity of the proximal right humerus. No focal soft tissue swelling or foreign body is seen. There is no right pneumothorax. Median sternotomy wires are noted XR/XR shoulder RT min 2V IMPRESSION: 1. No fracture or dislocation is seen. 2. Findings suggest right rotator cuff impingement, without sari calcific tendinitis. Electronically signed by: Eloy Walters MD 03/02/2024 06:09 PM EDT
== END 2024-02-11 09:59 | disposition home or self-care (01) ==
LOC: HO.XRAY 09:58
PROVIDERS: PCP Internal Medicine; Visit Provider Internal Medicine
DX: M25.511 Pain in right shoulder (principal)
CPT/HCPCS: 73030

== ENCOUNTER 2024-03-24 10:53 | Outpatient (AMB) | payer MEDICARE, OTHER, SELFPAY ==
--- NOTE | 2024-03-24 10:57 | MHC.OFFVIS ---
Intake Visit Reasons: 1Y Follow Up-Ultrasound(set) Intake Note: Patient is Present for Follow Up Ultrasound Urology Medication: Finasteride Antibiotic Allergies:Amoxicillin, Sulfa,Penicillin, Trimethroprim Blood Thinners: Aspirin Recent PSA: 05/2023- 1.06 Recent Hemoglobin A1C: 10/30/2023- 8.0 Accounting Director Required: No Accompanied by: Self / Same As Patient Allergies infliximab [From Remicade] Allergy (Severe, Verified 03/24/24 11:08) CHEST,ARM PAIN azathioprine [From Imuran] Allergy (Intermediate, Verified 03/24/24 11:08) LOWERED WBC'S Iodinated Contrast Media [IV Dye, Iodine Containing] Allergy (Intermediate, Verified 03/24/24 11:08) CHILLS,RASH,SWEATS alendronate sodium [From FOSAMAX] Allergy (Mild, Verified 03/24/24 11:08) HIVES amoxicillin [AMOXICILLIN] Allergy (Mild, Verified 03/24/24 11:08) HIVES ceftriaxone [From ROCEPHIN] Allergy (Mild, Verified 03/24/24 11:08) HIVES omeprazole [From PRILOSEC] Allergy (Mild, Verified 03/24/24 11:08) HIVES sulfamethoxazole [From Bactrim] Allergy (Mild, Verified 03/24/24 11:08) HIVES lansoprazole [Prevpac] Allergy (Unknown, Verified 03/24/24 11:08) Unknown penicillin V Allergy (Unknown, Verified 03/24/24 11:08) Unknown trimethoprim [From Bactrim] Allergy (Unknown, Verified 03/24/24 11:08) HIVES SURGICAL MESH Allergy (Unknown, Uncoded 03/24/24 11:08) Unknown Medication List - Last Reconciled 03/24/24 by Micah Canela MD allopurinol 200 mg PO DAILY aspirin 81 mg PO DAILY atorvastatin 80 mg PO BEDTIME dapagliflozin propanediol 5 mg PO DAILY finasteride 5 mg PO DAILY 90 days metoprolol succinate ER 25 mg PO DAILY oxycodone 5 mg PO Q6H PRN pantoprazole 40 mg PO DAILY potassium citrate ER 10 mEq PO BID tirzepatide (Mounjaro) 10 mg subcut HPI Comments Details: Jamie is a pleasant male. He is a patient Dr. Calvert. He is seen for the following urologic conditions - nephrolithiasis - lower urinary tract - neovascularity Yearly follow-up Renal ultrasound No stones Lower urinary tract symptoms Has been on finasteride PSA 06/15 1.1 Nephrolithiasis Background Crohn's disease with ileostomy high output Prior history of stones Imaging - 09/12 renal ultrasound bilateral cysts, no nephrolithiasis - 04/14 renal ultrasound bilateral cysts no nephrolithiasis - 02/13 renal ultrasound. No evidence of stones.Stable exophytic or perinephric echogenic mass along the lower pole the left kidney which based on prior CT imaging is consistent with fat necrosis. - 03/17 renal ultrasound no evidence of stones. Prior fat area noted. Intervention - multiple prior renal intervention Therapeutic plan - fluid intake - use of Tums with primary meal each day as oxalate binder - interval surveillance [facility] Medical History Epidermal cyst Enlarged prostate Elevated cholesterol Crohn disease Squamous cell cancer of lip Lesion of lip Calculus of kidney CAD (coronary artery disease) Gout Nephrolithiasis Diabetes mellitus Surgical History History of removal of cyst (~06/03/23) H/O squamous cell carcinoma excision (10/17/22) History of biopsy (09/25/22) History of esophagogastroduodenoscopy (EGD) H/O cystoscopy History of quadruple bypass (~10/2016) H/O thumb surgery H/O ileostomy Family History Father Colon cancer Mother No problems noted. Paternal Grandfather Cancer of unknown origin Social History Patient Tobacco Use Status: Former Tobacco user Review of Systems Const Denies chills and Denies fever(s) Card Reports no additional complaints and Denies syncope Resp Denies cough GI Denies abdominal pain and Denies heartburn Reports as per HPI and Denies change in libido Neuro Denies syncope Psych Denies change in libido Endo Denies change in libido Physical Exam Const General: cooperative, healthy appearing, comfortable and no acute distress Orientation/consciousness: patient oriented x3 HEENT Face and sinus: Yes normal facial exam Mouth: moist mucous membranes Neck Neck: Yes normal visual inspection, Yes full ROM and Yes trachea midline Chest Chest palpation & inspection: normal inspection of the chest Resp Effort & Inspection: normal respiratory effort, able to speak in complete sentences and no respiratory distress GI Inspection: Yes normal to inspection Back/Spine/Pelvis Cervical Spine: normal cervical lordosis Thoracic/Lumbar Spine: thoracic and lumbar spine normal to inspection Skin General skin exam: no rashes or lesions noted Neuro General: patient oriented x3, gait normal, tone normal and moves all extremities Extrem General: Yes normal to inspection and Yes capillary refill normal Assessment & Plan Assessment & Plan (1) BPH w urinary obs/LUTS: Code(s): N40.1 - Benign prostatic hyperplasia with lower urinary tract symptoms; N13.8 - Other obstructive and reflux uropathy Category: Medical Plan One year follow-up imaging Orders: Orders US renal BI 1 Year N20.0 - Calculus of kidney Patient Instructions: Imaging studies, laboratory and physical exam results were discussed and reviewed in detail. No major barriers to patient understanding were identified. An opportunity to ask questions regarding the treatment plan was provided. All questions were answered. The patient expressed understanding and agreement with the above treatment plan. The patient is aware they should contact our office by phone for worsening of their current condition or the appearance of new urologic symptoms. Compliance is encouraged with any medications and followup testing that is ordered. It is a privilege to participate in the urologic care of your patient. If you have any questions or concerns regarding treatment for the above conditions, or other urologic issues, please do not hesitate to contact me. The office telephone contact is [phone]. This note is constructed using voice recognition software. While every effort has been made to ensure accuracy road oiling truck driver errors may have been included. Yours sincerely, Dr Micah Canela MD, [facility] - Urology Providers of Expert, Compassionate Care for the Genitourinary System Coding Level of Care Code Est Pt Level 4 (70325) Diagnoses BPH w urinary obs/LUTS N40.1; N13.8
== END 2024-03-24 11:37 | disposition home or self-care (01) ==
PROVIDERS: PCP Internal Medicine; Visit Provider Urology
DX: N40.1 Benign prostatic hyperplasia with lower urinary tract symptoms (principal); N13.8 Other obstructive and reflux uropathy
CPT/HCPCS: 99214

== ENCOUNTER → 2024-03-24 10:53 | Outpatient (BNVA) | payer MEDICARE, OTHER, SELFPAY | PROVIDERS: PCP Internal Medicine; Visit Provider Urology | DX: N40.1 Benign prostatic hyperplasia with lower urinary tract symptoms (principal); N13.8 Other obstructive and reflux uropathy | CPT/HCPCS: 99212 ==

== ENCOUNTER 2024-04-09 14:00 | Outpatient (AMB) | payer MEDICARE, OTHER, SELFPAY ==
--- NOTE | 2024-04-09 14:03 | A.OFFVIS_ITS ---
Vital Signs 04/09/24 14:10 Height 5 ft 10.5 in Weight 191 lb BMI 27.0 Intake Visit Reasons: OV-Right Shoulder increasing pain Intake Note: Jamie a 78 year old right hand dominant male who presents today for a follow up of right shoulder. Patient reports his pain presented about 3 months ago when he lifted up a garage door, the door was coming down when he reached up quickly to avoid door the from closing. His discomfort comes with him trying to sleep on his right shoulder. He has numbness and tingling that radiates down to her hand. Allergies infliximab [From Remicade] Allergy (Severe, Verified 04/09/24 14:24) CHEST,ARM PAIN azathioprine [From Imuran] Allergy (Intermediate, Verified 04/09/24 14:24) LOWERED WBC'S Iodinated Contrast Media [IV Dye, Iodine Containing] Allergy (Intermediate, Verified 04/09/24 14:24) CHILLS,RASH,SWEATS alendronate sodium [From FOSAMAX] Allergy (Mild, Verified 04/09/24 14:24) HIVES amoxicillin [AMOXICILLIN] Allergy (Mild, Verified 04/09/24 14:24) HIVES ceftriaxone [From ROCEPHIN] Allergy (Mild, Verified 04/09/24 14:24) HIVES omeprazole [From PRILOSEC] Allergy (Mild, Verified 04/09/24 14:24) HIVES sulfamethoxazole [From Bactrim] Allergy (Mild, Verified 04/09/24 14:24) HIVES lansoprazole [Prevpac] Allergy (Unknown, Verified 04/09/24 14:24) Unknown penicillin V Allergy (Unknown, Verified 04/09/24 14:24) Unknown trimethoprim [From Bactrim] Allergy (Unknown, Verified 04/09/24 14:24) HIVES SURGICAL MESH Allergy (Unknown, Uncoded 04/09/24 14:24) Unknown Medication List - Last Reconciled 04/09/24 by Martir Rincon PA-C allopurinol 200 mg PO DAILY aspirin 81 mg PO DAILY atorvastatin 80 mg PO BEDTIME dapagliflozin propanediol 5 mg PO DAILY finasteride 5 mg PO DAILY 90 days metoprolol succinate ER 25 mg PO DAILY oxycodone 5 mg PO Q6H PRN pantoprazole 40 mg PO DAILY potassium citrate ER 10 mEq PO BID tirzepatide (Mounjaro) 10 mg subcut HPI HPI OV-Right Shoulder increasing pain: Details: 78-year-old male who returns to the office today for a follow-up of worsening right shoulder pain. He reports about 3 months ago when he lifted up a garage door, the door came down and he tried to reach up quickly to avoid the door from closing and experienced pain in his shoulder. He currently states he has pain and discomfort in his shoulder that is aggravated with sleeping and laying on his side. He also reports he has numbness and tingling that radiates down to his hand that is worse at night. He denies any pain or numbness with lifting his arm up. He takes Tylenol arthritis for his pain as needed. He had an injection long time ago that provided him relief. [facility] Medical History Epidermal cyst Enlarged prostate Elevated cholesterol Crohn disease Squamous cell cancer of lip Lesion of lip Calculus of kidney CAD (coronary artery disease) Gout Nephrolithiasis Diabetes mellitus Surgical History History of removal of cyst (~06/03/23) H/O squamous cell carcinoma excision (10/17/22) History of biopsy (09/25/22) History of esophagogastroduodenoscopy (EGD) H/O cystoscopy History of quadruple bypass (~10/2016) H/O thumb surgery H/O ileostomy Family History Father Colon cancer Mother No problems noted. Paternal Grandfather Cancer of unknown origin Social History Patient Tobacco Use Status: Former Tobacco user Review of Systems Const All systems reviewed & are unremarkable except as noted in HPI and below Physical Exam Vital Signs: BMI result Body Mass Index 27.0 Extrem Other: Right shoulder: Normal to inspection. Tenderness over the bicipital groove and along the deltoid region of the shoulder. Forward flexion to 175, external rotation to 90, internal rotation to S1. 5/5 RTC strength. Positive Martinez and positive obriens. NVI. Office Procedures Joint Injection/Aspiration Joint Injection/Aspiration Primary Site: right shoulder Prep: site was prepped using aseptic technique, ethochloride spray was applied and injection warnings given Injected: 80 mg of, DepoMedrol, with 8 mL of, 1% plain lidocaine and in the joint Approach Used: anterolateral Procedure: The patient tolerated the procedure well and there was some relief with the local anesthesia Coding 40604 - Glenohumeral/Tronchanteric Bursa/Intraarticular Procedure code (CPT) selection complete Results Reviewed Results Reviewed: XR shoulder RT min 2V IMPRESSION: 1. No fracture or dislocation is seen. 2. Findings suggest right rotator cuff impingement, without sari calcific tendinitis. Assessment & Plan Assessment & Plan (1) Right rotator cuff tendonitis: Code(s): M75.81 - Other shoulder lesions, right shoulder Category: Medical Plan We discussed options today, which include steroid injection. The patient did consent to move forward with the right shoulder injection, which was tolerated well. I recommended rest, ice, and elevation and OTC anti-inflammatories as needed for discomfort. If symptoms persist or worsen over the next 6-8 weeks, patient will contact the office, otherwise follow-up as needed. Orders: Orders PT Evaluation and Treatment Today M75.81 - Other shoulder lesions, right shoulder Patient Instructions: Scribed for Martir Rincon PA-C, by Godwin Juares medical administrative technician, on 04/09/2024 at 2:15 PM EST.? I, Martir Rincon PA-C, have personally reviewed and agree with the information entered by the scribe. Coding Level of Care Code Est Pt Level 3 (87039) Complex EM visit Add On G2211 Diagnoses Right rotator cuff tendonitis M75.81 CPT Codes Coding - Joint 7: 82389 - Glenohumeral/Tronchanteric Bursa/Intraarticular ([id number])
[2024-04-09 14:10] VITALS: BMI 27.0
== END 2024-04-09 15:39 | disposition home or self-care (01) ==
PROVIDERS: PCP Internal Medicine; Visit Provider Physician Assistant
DX: M75.81 Other shoulder lesions, right shoulder (principal)
CPT/HCPCS: 20610; 99213

== ENCOUNTER → 2024-04-09 14:00 | Outpatient (BNVA) | payer MEDICARE, OTHER, SELFPAY | PROVIDERS: PCP Internal Medicine; Visit Provider Physician Assistant | DX: M25.511 Pain in right shoulder (principal); M75.81 Other shoulder lesions, right shoulder | CPT/HCPCS: 20610; 99212; J1010; J2003 ==

== ENCOUNTER 2024-06-03 08:53 | Outpatient (RCR) | payer MEDICARE, OTHER, SELFPAY ==
--- NOTE | 2024-08-14 07:52 | MHC.PT.DC ---
[facility] [place] Office [place] Office [place] Office [address] Sveta Roslaes [address] [phone] F: [phone] F: [phone] F: [phone] F: [phone] Physical Therapy Discharge Report Diagnosis: R RTC tendonitis. Date of Surgery: Date of Evaluation: 05/07/24 Date of Discharge: 08/14/24 Treatments to Date: 5 Cancellations to Date: No Shows to Date: Discharge Status: Achieved Goals Improved Function Independent with HEP Discharge Summary: . Electronically signed by: Caesar Seay PT. Please sign and return to therapist. Thank you for your referral.
== END 2024-08-14 07:52 | disposition home or self-care (01) ==
LOC: HO.PT 08:53
PROVIDERS: PCP Internal Medicine; Visit Provider Physician Assistant
DX: M75.81 Other shoulder lesions, right shoulder (principal)
CPT/HCPCS: 97110; 97161

== ENCOUNTER 2024-07-16 07:54 | Outpatient (REF) | payer MEDICARE, OTHER, SELFPAY ==
--- NOTE | ~2024-07-16 | XR_ITS ---
EXAMINATION: XR SHOULDER, LEFT CLINICAL INFORMATION: LEFT SHOULDER PAIN COMPARISON: Shoulder 02/11/2024. TECHNIQUE: AP external rotation, Grashey, scapular Y, and axillary views of the left shoulder. FINDINGS: There is moderate loss of glenohumeral joint space with periarticular spurring. AC joint space is maintained normal. No visible acute fracture, dislocation or subluxation seen. No lytic process. XR/XR shoulder LT min 2V IMPRESSION: Degenerative arthritic changes left AC joint. No visible acute fracture or dislocation seen. Electronically signed by: Carroll Horton MD 07/16/2024 10:35 AM EST
--- OUTSIDE RECORDS SUMMARY | 2024-07-16 08:01 | XMS_ITS | Encounter Summary ---
Author Organization [facility] Address [address] [place] [address] Phone Care Team Providers Care Machine Operator General Name Role Phone Hi Calvert MD Primary Care Provider [phone] Reason for Visit * Reason Comments Med Refill Encounter Details Date Type Department Care Team (Late st Contact Info) Description 04/09/2024 Refill [facility] [address] [place] [id number] Bijan Cleary MD [address] [address] Social History Tobacco Use Types Packs/Day Years Used Date Smoking Tobacco: Former Smokeless Tobacco: Never Alcohol Use Standard Drinks/Week Comments Yes 0 (1 standard drink = 0.6 oz pur e alcohol) Sex and Gender Information Value Date Recorded Sex Assigned at Not on file Legal Sex Male 4:41 PM EST Gender Identity Not on file Sexual Orientation Not on file documented as of this encounter Plan of Treatment Upcoming Encounters Date Type Department Care Team (Late st Contact Info) Description 06/21/2025 1:00 PM EST Office Visit [facility] [address] [place] [address] Bijan Cleary MD [address] [facility] [address] [place] [address] documented as of this encounter Visit Diagnoses Not on filedocumented in this encounter Care Teams Machine Operator General Relationship Specialty Start Date End Date Hi Calvert MD [id number] [place]ARCIA PCP - General 07/04/20 documented as of this encounter
[2024-07-16 10:19] LABS: MANUAL DIFF FLAG NO
[2024-07-16 10:32] LABS: Basophils Percent Auto 0.6 % (0-2); Eosinophils Absolute Auto 0.1 X10*3/uL (0.0-0.4); Hematocrit 40.2 % (42.0-52.0); Imm Gran Abs Auto 0.02 X10*3/uL (0.00-0.03); Imm Gran Pct Auto 0.3 % (0.0-0.4); Lymphocytes Absolute Auto 1.1 X10*3/uL (1.2-4.9); Lymphocytes Percent Auto 16.1 % (20-40); Mean Corpuscular HGB Conc 27.4 g/dl (31.0-36.0); Mean Corpuscular Hemoglobin 17.8 pg (27.0-33.0); Mean Corpuscular Volume 65.2 fL (80.0-98.0); Mean Platelet Volume 9.4 fL (9.4-12.4); Monocytes Absolute Auto 0.7 X10*3/uL (0.1-1.2); Monocytes Percent Auto 10.8 % (2-11); Neutrophils Absolute Auto 4.6 x10*3/uL (2.0-8.3); Neutrophils Percent Auto 70.2 % (45-73); Platelet Count 257 X10*3/uL (160-400); Red Blood Count 6.17 X10*6/uL (4.60-5.80); Red Cell Distribution Width 21.3 % (11.0-16.0); White Blood Count 6.5 X10*3/uL (4.8-10.8)
[2024-07-16 10:36] LABS: Estimated Average Glucose 134 mg/dL; Hemoglobin A1C 129.8222 umol/L; Hemoglobin A1c % 6.3 % (<6.0); Total Hemoglobin (HGBA1C) 2845.7908 umol/L
[2024-07-16 10:48] LABS: Alanine Aminotransferase 21 U/L (0-40); Albumin Level 4.4 g/dL (3.5-5.0); Alkaline Phosphatase 80 U/L (39-117); Anion Gap 13 (12-20); Aspartate Amino Transferase 23 U/L (5-37); Bilirubin Total 0.7 mg/dL (0.0-1.0); Blood Urea Nitrogen 18 mg/dL (9-16); Calcium 9.8 mg/dL (8.4-10.2); Carbon Dioxide 23 mmol/L (22-29); Chloride 110 mmol/L (96-108); Cholesterol 83 mg/dL (<200); Estimated Glomerular Filt Rate 50; Glucose Fasting 150 mg/dL (60-99); HDL Cholesterol 32 mg/dL (>40); LDL Cholesterol Calculated 21 mg/dL (<100); Potassium 4.7 mmol/L (3.3-5.1); Sodium 141 mmol/L (135-145); Total Protein 7.6 g/dL (6.5-8.0); Triglycerides 152 mg/dL (<150); Uric Acid 4.4 mg/dL (3.4-7.0)
[2024-07-16 10:53] LABS: Prostate Specific Antigen Scr 0.78 ng/mL (<0.05-4.0)
[2024-07-16 11:01] LABS: Creatinine Urine 188.85 mg/dL
[2024-07-16 11:08] LABS: Appearance Urine Clear; Color Urine Yellow; Glucose Urine UA 500 mg/dL (Negative); Leukocyte Esterase Urine Negative (Negative); Nitrite Urine Negative (Negative); Specific Gravity - Urine 1.025 (1.005-1.025); UMIC TRIGGER UA YES; Urine Blood Negative (Negative); Urine Ketones Negative (Negative); Urine Protein 30 (1+) mg/dL (Neg-Trace)
[2024-07-16 11:15] LABS: Bacteria Urine None Seen (None Seen); RBC Urine 0-2 /HPF (0-2); Squamous Epithelial Cell Urine 0-2 /HPF (0-2); WBC Urine 0-5 /HPF (0-5)
== END 2024-07-16 07:55 | disposition home or self-care (01) ==
LOC: HO.10HDL 07:54
PROVIDERS: PCP Internal Medicine; Visit Provider Internal Medicine
DX: M25.512 Pain in left shoulder (principal); E11.22 Type 2 diabetes mellitus with diabetic chronic kidney disease; I12.9 Hypertensive chronic kidney disease with stage 1 through stage 4 chronic kidney disease, or unspecified chronic kidney disease; N18.9 Chronic kidney disease, unspecified; I25.10 Atherosclerotic heart disease of native coronary artery without angina pectoris; E78.00 Pure hypercholesterolemia, unspecified; E53.8 Deficiency of other specified B group vitamins; Z12.5 Encounter for screening for malignant neoplasm of prostate
CPT/HCPCS: 36415; 73030; 80053; 80061; 81001; 81003; 82043; 82570; 83036; 84153; 84550; 85025

== ENCOUNTER → 2024-07-16 09:55 | Outpatient (BNV) | payer MEDICARE, OTHER, SELFPAY | PROVIDERS: PCP Internal Medicine; Visit Provider Radiology Diagnostic Radiology | DX: M25.512 Pain in left shoulder (principal) | CPT/HCPCS: 73030 ==

== ENCOUNTER → 2024-07-31 08:43 | Outpatient (AMB) | payer MEDICARE, OTHER, SELFPAY ==
--- NOTE | 2024-07-31 08:59 | A.OFFVIS_ITS ---
Vital Signs 07/31/24 09:02 Height 5 ft 10 in Weight 191 lb BMI 27.4 Handedness Right Intake Visit Reasons: New Prob - Left shoulder pain/injury Intake Note: This is a 79 year old right hand dominant male that presents for left shoulder pain. The patient reports having pain for 3 weeks. Hx of injection in his right shoulder with mild relief. He states that he slipped on ice landing on his left shoulder. Patient reports that his pain is so bad that he is not able to sleep and his pain is worse when he is laying down. Patient has tired and failed Tylenol with mild relief. Patient would like to know what the x rays show. Automated Process Operator Required: No Allergies infliximab [From Remicade] Allergy (Severe, Verified 07/31/24 09:05) CHEST,ARM PAIN azathioprine [From Imuran] Allergy (Intermediate, Verified 07/31/24 09:05) LOWERED WBC'S Iodinated Contrast Media [IV Dye, Iodine Containing] Allergy (Intermediate, Verified 07/31/24 09:05) CHILLS,RASH,SWEATS alendronate sodium [From FOSAMAX] Allergy (Mild, Verified 07/31/24 09:05) HIVES amoxicillin [AMOXICILLIN] Allergy (Mild, Verified 07/31/24 09:05) HIVES ceftriaxone [From ROCEPHIN] Allergy (Mild, Verified 07/31/24 09:05) HIVES omeprazole [From PRILOSEC] Allergy (Mild, Verified 07/31/24 09:05) HIVES sulfamethoxazole [From Bactrim] Allergy (Mild, Verified 07/31/24 09:05) HIVES lansoprazole [Prevpac] Allergy (Unknown, Verified 07/31/24 09:05) Unknown penicillin V Allergy (Unknown, Verified 07/31/24 09:05) Unknown trimethoprim [From Bactrim] Allergy (Unknown, Verified 07/31/24 09:05) HIVES SURGICAL MESH Allergy (Unknown, Uncoded 07/31/24 09:00) Unknown Medication List - Last Reconciled 07/31/24 by Zoe Varma, ALLEN allopurinol 200 mg PO DAILY aspirin 81 mg PO DAILY atorvastatin 80 mg PO BEDTIME dapagliflozin propanediol 5 mg PO DAILY finasteride 5 mg PO DAILY 90 days metoprolol succinate ER 25 mg PO DAILY oxycodone 5 mg PO Q6H PRN pantoprazole 40 mg PO DAILY potassium citrate ER 10 mEq PO BID tirzepatide (Mounjaro) 10 mg subcut HPI HPI New Prob - Left shoulder pain/injury: Details: 79-year-old gentleman returns to the office today for new onset left shoulder pain. He has seen me in the past with the right shoulder and had injections. He states he has had left shoulder pain for approximately 3 weeks after slipping on the ice. Most of his discomfort is with sleeping at night. [facility] Medical History Epidermal cyst Enlarged prostate Elevated cholesterol Crohn disease Squamous cell cancer of lip Lesion of lip Calculus of kidney CAD (coronary artery disease) Gout Nephrolithiasis Diabetes mellitus Surgical History History of removal of cyst (~06/03/23) H/O squamous cell carcinoma excision (10/17/22) History of biopsy (09/25/22) History of esophagogastroduodenoscopy (EGD) H/O cystoscopy History of quadruple bypass (~10/2016) H/O thumb surgery H/O ileostomy Family History Father Colon cancer Mother No problems noted. Paternal Grandfather Cancer of unknown origin Social History Patient Tobacco Use Status: Former Tobacco user Review of Systems Const All systems reviewed & are unremarkable except as noted in HPI and below Physical Exam Vital Signs: BMI result Body Mass Index 27.4 Extrem Other: Left shoulder normal to inspection. Tenderness over the bicipital groove and along deltoid region of the shoulder. FF to 175, ER to 90, IR to S1. 5/5 RTC strength, positive luz, cross body abduction. NVI. Office Procedures AMB Joint Injection/Aspiration Joint Injection/Aspiration Primary Site: left shoulder Prep: site was prepped using aseptic technique, ethochloride spray was applied and injection warnings given Injected: 80 mg of, DepoMedrol, with 8 mL of, 1% plain lidocaine and in the subcromial space Approach Used: posterolateral Procedure: The patient tolerated the procedure well and there was some relief with the local anesthesia Coding 62572 - Glenohumeral/Tronchanteric Bursa/Intraarticular Procedure code (CPT) selection complete Results Reviewed Results Reviewed: left shoulder xrays 07/16/24 IMPRESSION: Degenerative arthritic changes left AC joint. No visible acute fracture or dislocation seen. Assessment & Plan Assessment & Plan (1) Left shoulder tendonitis: Code(s): M77.8 - Other enthesopathies, not elsewhere classified Category: Medical Plan: We discussed options today, which include steroid injection. The patient did consent to move forward with the injection, which was tolerated well.? I recommended rest, ice and elevation and OTC antiinflammatories prn for discomfort. If symptoms persist over the next 6-8 weeks, they will contact our office, otherwise, prn Coding Level of Care Code Est Pt Level 3 (35305) Complex EM visit Add On G2211 Diagnoses Left shoulder tendonitis M77.8 CPT Codes Coding - Joint 7: 19837 - Glenohumeral/Tronchanteric Bursa/Intraarticular ([id number])
--- OUTSIDE RECORDS SUMMARY | 2024-07-31 09:02 | XMS_ITS | Patient Health Record ---
Author Organization [facility] Address [address] [place] [address] Care Team Providers Care Software Development Leader Name Role Phone Hi Calvert MD Primary Care Provider Dallin Joya [phone] ALLERGIES Allergen (clinical drug ingredient) Drug/Non Drug Allergy documented on EMR Reaction Allergy Type Onset Date Status Penicillin Unknown Drug Allergy Active ivp dye (uncoded) Unknown Allergy Ac tive Substance with penicillin structure and antibacterial mechanism of action (substance) all cillin drugs (uncoded) Unknown Allergy Active REASON FOR REFERRAL No Information MEDICATIONS Medication SIG (Take, Route, Frequency, Duration) Notes Start Date End Date Status Pantoprazole Sodium 40 MG TAKE 1 TABLET BY MOUTH EVERY DAY FOR 90 DAYS for 90 Active Farxiga 5 MG Oral for 60 Activ e Potassium Citrate ER 10 MEQ (1080 MG) Oral for 90 Active Metoprolol Succinate ER 25 MG Oral for 90 Active Allopurinol 100 MG Oral for 90 Active Atorvastatin Calcium 80 MG Oral for 90 Active Sucralfate 1 GM TAKE 1 TABLET BY MAYRA TH 3 TIMES A DAY 30 TO 60 MINUTES BEFORE MEALS for 30 Active IMMUNIZATIONS Vaccine Route Administration Date Status Comme nts Flu vaccine no Preserv 3 and > Unknown 04/06/2014 Admin istered Influenza Unknown 03/24/2021 Administered SOCIAL HISTORY Sex Assigned At : Social History Observation Description Sex Assigned At Unknown PROBLEMS Problem Type ICD Code Onset Dates Problem Status W/U Status Risk SNOMED Code Notes Problem Crohn's disease of small intestine with intestinal obstruction (K50.012) Active confirmed Complication du e to Crohn's disease of small intestine (257815566417800 7) Problem Gastric polyps (K31.7) Active confirmed Benign neoplasm of stomach (96891227) Problem Gastritis, chronic (K29.50) Active confirmed Chronic gastritis (9296140) Problem Iron deficiency anemia due to chronic blood loss (D50.0) Active confirmed 740808339 Problem Iron deficiency anemia, unspecified iron deficiency anemia type (D50.9) Active confirmed 96837950 PLAN OF TREATMENT Pending Test Test Name Order Date IRON + IBC (FE) 04/13/2021 IRON + IBC (FE) 07/26/2021 CBC w DIFF 04/18/2021 CBC w DIFF 04/13/2021 CBC w DIFF 07/26/2021 CELIAC PANEL #10 04/13/2021 Ferritin 04/13/2021 Ferritin 07/26/2021 Future Test Test Name Order Date UPPER GI ENDOSCOPY [place] DILATION OF ESOPH 10/29/2014 UPPER GI ENDOSCOPY 04/13/2021 Insurance Providers Payer Name Payer Address Payer Phone Subscriber Number Group Number Insured Name Patient Relationship to Insured Coverage Start Date Coverage End Date MEDICARE OF [place] [address] [place] [address] [id number] NANCY ALFONSO Self - patient is the insured [facility] INDEMNITY [address] [place] [address] [id number] NANCY ALFONSO Self - patient is the insured MEDICAL (GENERAL) HISTORY Medical History History ICD Code Denies [place],CVA,Lung disease,renal disease IDDM Kidney stones Bladder stones TURP Crohn's colitis--this was qu ite refractory and he underwent a complete proctocolectomy and ileostomy [place] [address] Santana. EGD 2014 was normal except f or a small hiatal hernia. Biopsies from the gastroesophageal junction raised a suspicion of a tiny area of Lopez's mucosa, but without dysplasia. Coronary artery disease with surgery as below EGD 03/2021 mild antral linda ritis, inflammatory gastric polyp, neg. H.pylori, normal duodenal biopsies negative for celiac disease Surgical History Surgery Date(Month/Year) Complete proctocolectomy and ileostomy as above with Dr. Santana in 2002 Revision of the ileostomy tw ice- in 2008 and in 2009-- in regard to hernias 4 V CABG approx 2018 Hand surgery
--- OUTSIDE RECORDS SUMMARY | 2024-07-31 09:02 | XMS_ITS | Clinical Summary ---
Author Organization [facility] Facility Address [address] [place] [address] Care Team Providers Care Toy Stuffer Name Role Phone Hi Calvert MD Primary Care Provider [phone] Allergies Active Allergy Reactions Criticality Noted Date Comments Amoxicillin Other (see comments) 08/22/2020 Bacitracin Other (see comments) 08/22/2020 Infliximab Other (see comments) 08/22/2020 Penicillin G Other (see comments) 11/26/2021 Ceftriaxone Other (see comments) 08/22/2020 Sulfa Antibiotics Other (see comments) 08/23/19 Sulfamethoxazole-Trimethoprim Other (see comments) 08/22/2020 Medications Multiple Vitamins-[place] als (MULTIVITAMIN ADULTS 50+ PO) Take 1 tablet by mouth 1 (one) time each day Active cyanocobalamin (VITAMIN B-12) 1000 MCG tablet Take 1 tablet by mouth 1 (one) time per week Active metoprolol tartrate (LOPRESSOR) 25 MG tablet Take 1 tablet by mouth 1 (one) time each day Active pantoprazole (PROTONIX) 40 MG EC tablet Take 40 mg by mouth 1 Active Farxiga 5 MG tablet 1 Active atorvastatin (LIPITOR) 80 MG tablet Take 80 mg by mouth every night 1 Active metoprolol succinate XL (TOPROL XL) 25 MG 24 hr tablet Take 25 mg by mouth 1 Active potassium citrate 10 MEQ (1080 MG) CR tablet TAKE 1 TABLET BY MOUTH TWICE A DAY DIRECTED 180 tablet 3 4 Active allopurinol (ZYLOPRIM) 100 MG tablet TAKE 2 TABLETS BY MOUTH EVERY DAY 180 tablet 5 4 Active Tirzepatide (Mounjaro) 5 MG/0.5ML solution pen-injector INJECT 5 MG SUBCUTANEOUSLY ONCE A WEEK DIRECTED FOR 4 WEEKS 4 Active Active Problems Problem Noted Date Diagnosed Date Renal osteodystrophy 06/15/2024 Iron deficiency anemia 04/08/2023 3 Intestinal obstruction due t o Crohn's disease of small intestine 04/08/2023 04/08/2023 Chronic gastritis 04/08/2023 04/08/2023 Benign neoplasm of stomach 04/08/202304/08 Anemia due to chronic blood loss 04/08/2023 04/08/2023 Extraction of cataract 03/08/2023 3 Hyperlipidemia 04/17/2022 Coronary artery bypass graft 04/17/2022 Stage 3b chronic kidney disease 12/26/2021 Urinary bladder stone 12/20/2021 Type 2 diabetes mellitus 12/20/2021 Crohn's disease 12/20/2021 Overview (12/20/2021): s/p ileostomy Calcific coronary arteriosclerosis 12/20/2021 Arthritis 12/20/2021 Overview (12/20/2021): hands Renal osteodystrophy 03/06/2021 Stage 3a chronic kidney disease 08/22/2020 Renal stone 08/22/2020 Type 2 diabetes mellitus wit h diabetic chronic kidney disease 08/22/2020 Encounters Date Type Department Care Team Description 06/15/2024 2:45 PM EST Office Visit [facility] [address] [place] [address] Bijan Cleary MD Type 2 diabetes mellitus with diabetic chronic kidney disease (HCC) (Primary Dx); Stage 3a chronic kidney disease (HCC); Renal osteodystrophy 06/15/2024 Refill [facility] [address] [place] [phone] Bijan Cleary MD from Last 3 Months Immunizations Name Administration Dates Next Due Influenza, Unspecified 03/24/2021,04/06/2014 Pneumococcal Conjugate 13-Valent 10/21/2016 Pneumococcal Polysaccharide 03/06/2013 Family History Medical History Relation Comments Cancer Father Heart disease Mother CABG Diabetes Sibling Relation Status Comments Father Mother Sibling Social History Tobacco Use Types Packs/Day Years Used Date Smoking Tobacco: Former Smokeless Tobacco: Never Alcohol Use Standard Drinks/Week Comments Yes 0 (1 standard drink = 0.6 oz pur e alcohol) Sex and Gender Information Value Date Recorded Sex Assigned at Not on file Legal Sex Male 4:41 PM EST Gender Identity Not on file Sexual Orientation Not on file Last Filed Vital Signs Vital Sign Reading Time Taken Comments Blood Pressure 114/78 06/15/2024 2:34 PM EST Pulse 89 05/27/2023 10:17 AM EST Temperature - - Respiratory Rate - - Oxygen Saturation 98% 05/27/2023 10:17 AM EST Inhaled Oxygen Concentration - - Weight 84.4 kg (186 lb) 06/15/2024 2:34 PM EST Height 177.8 cm (5' 10 ) 03/06/2021 2:22 PM EDT Body Mass Index 26.69 03/06/2021 2:22 PM EDT Plan of Treatment Upcoming Encounters Date Type Department Care Team (Late st Contact Info) Description 06/21/2025 1:00 PM EST Office Visit [facility] [address] [place] [address] Bijan Cleary MD [address] [facility] [address] [place] [address] Health Maintenance Due Date Last Done Comments Diabetes: Ophthalmology Exam 08/22/2020 Diabetes: Pedal Pulse Checked 08/22/2020 Diabetes: Sensory Foot Exam 08/22/2020 Diabetes: Visual Foot Exam 08/22/2020 Diabetes: Hemoglobin A1C 07/11/2022 022, 10/25/2021 Influenza Vaccine (#1) 2024 , 04/06/2014, 04/06/2014 Pneumococcal Vaccine: 65+ Years Completed 10/21/2016, 03/06/2013 Hepatitis B Vaccine Aged Out No longe r eligible based on patient's age to complete this topic Procedures Procedure Name Priority Date/Time Associated Diagnosis Comments EXT RESULT ENTRY Routine 04/10/2022 from Last 3 Months or Most Recently Relevant to Health Maintenance Results * (ABNORMAL) EXT RESULT ENTRY (04/10/2022) Sodium 142 137 - 147 Potassium 4.9 3.4 - 5.5 Chloride 106.0 99.0 - 108.0 Anion Gap 17 <=30 MMOL/L BUN 19 4 - 21 mg/dL Creatinine 1.52(A) 0.60 - 1.30 mg/dL Calcium 9.0 8.7 - 10.7 mg/dL Hemoglobin A1C 6.5(A) 4.0 - 6.0 04/10/2022 [facility] Provider LAB BLOOD ORDERABLES Charlene l Result from Last 3 Months or Most Recently Relevant to Health Maintenance Insurance MEDICARE [facility] MEDICARE [facility] Care Teams Toy Stuffer Relationship Specialty Start Date End Date Hi Calvert MD [address] [facility] [address] [place] PCP - General 07/04/20
--- OUTSIDE RECORDS SUMMARY | 2024-07-31 09:02 | XMS_ITS | Encounter Summary ---
Author Organization [facility] Address [address] [place] [address] Phone Care Team Providers Care Day Care Home Provider Name Role Phone Hi Calvert MD Primary Care Provider [phone] Reason for Visit * Reason Comments Med Refill Encounter Details Date Type Department Care Team (Late st Contact Info) Description 04/09/2024 Refill [facility] [address] [place] [phone] Bijan Cleary MD [address] [address] Social History Tobacco Use Types [...] Visit [facility] [address] [place] [address] Bijan Cleary MD [address] [facility] [address] [place] [address] documented as of this encounter Visit Diagnoses Not on filedocumented in this encounter Care Teams Day Care Home Provider Relationship Specialty Start Date End Date Hi Calvert MD [address] [place] PCP - General 07/04/20 documented as of this encounter
== END | disposition home or self-care (01) ==
PROVIDERS: PCP Internal Medicine; Visit Provider Physician Assistant
CPT/HCPCS: 20610; 99213

== ENCOUNTER → 2024-07-31 08:43 | Outpatient (BNVA) | payer MEDICARE, OTHER, SELFPAY | PROVIDERS: PCP Internal Medicine; Visit Provider Physician Assistant | DX: M77.8 Other enthesopathies, not elsewhere classified (principal); M25.512 Pain in left shoulder | CPT/HCPCS: 20610; 99212; J1010; J2003 ==

== ENCOUNTER 2024-09-28 10:21 | Outpatient (AMB) | payer MEDICARE, OTHER, SELFPAY ==
[2024-09-28 10:48] VITALS: BP 120/70; PULSE 73; TEMP 36.3; O2SAT 99; BMI 25.5
--- NOTE | 2024-09-28 10:48 | A.OFFPC_ITS ---
Vital Signs 09/28/24 10:48 Height 5 ft 10 in Weight 178 lb BMI 25.5 BP 120/70 Blood Pressure Location Lt brachial Position Sitting Pulse 73 Pulse Source Pulse Oximeter Temp 97.4 F Temp Source Axillary Pulse Oximetry (%) 99 Oxygen Delivery Method Room Air Intake Visit Reasons: B-12 injection only Highway Truck Driver Required: No Allergies infliximab [From Remicade] Allergy (Severe, Verified 09/28/24 10:49) CHEST,ARM PAIN azathioprine [From Imuran] Allergy (Intermediate, Verified 09/28/24 10:49) LOWERED WBC'S Iodinated Contrast Media [IV Dye, Iodine Containing] Allergy (Intermediate, Verified 09/28/24 10:49) CHILLS,RASH,SWEATS alendronate sodium [From FOSAMAX] Allergy (Mild, Verified 09/28/24 10:49) HIVES amoxicillin [AMOXICILLIN] Allergy (Mild, Verified 09/28/24 10:49) HIVES ceftriaxone [From ROCEPHIN] Allergy (Mild, Verified 09/28/24 10:49) HIVES omeprazole [From PRILOSEC] Allergy (Mild, Verified 09/28/24 10:49) HIVES sulfamethoxazole [From Bactrim] Allergy (Mild, Verified 09/28/24 10:49) HIVES lansoprazole [Prevpac] Allergy (Unknown, Verified 09/28/24 10:49) Unknown penicillin V Allergy (Unknown, Verified 09/28/24 10:49) Unknown trimethoprim [From Bactrim] Allergy (Unknown, Verified 09/28/24 10:49) HIVES SURGICAL MESH Allergy (Unknown, Uncoded 09/28/24 10:49) Unknown Tobacco use date assessed: 09/28/24 Fall risk assessment: No Falls in past year Dental Screening Dental Screen Date: 09/28/24 Did you have a dental visit in the last 12 months?: Yes Did you have a dental problem in the last 6 months where you did not have access to dental care?: No HPI B-12 injection only HPI Details Pt is requesting a B12 injection. He gets it every month. [facility], [facility] Medical History Epidermal cyst Enlarged prostate Elevated cholesterol Crohn disease Squamous cell cancer of lip Lesion of lip Calculus of kidney CAD (coronary artery disease) Gout Nephrolithiasis Diabetes mellitus Surgical History History of removal of cyst (~06/03/23) H/O squamous cell carcinoma excision (10/17/22) History of biopsy (09/25/22) History of esophagogastroduodenoscopy (EGD) H/O cystoscopy History of quadruple bypass (~10/2016) H/O thumb surgery H/O ileostomy Family History Father Colon cancer Mother No problems noted. Paternal Grandfather Cancer of unknown origin Social History Housing: House Patient Tobacco Use Status: Former Tobacco user service: No Current occupational status: retired Cognitive needs: No Hearing needs: No Vision needs: Yes (reading glasses) Questionnaire PHQ-9 Over the last 2 weeks, how often have you been bothered by any of the following problems? 1. Little interest or pleasure in doing things: not at all 2. Feeling down, depressed, or hopeless: not at all 3. Trouble falling or staying asleep, or sleeping too much: not at all 4. Feeling tired or having little energy: not at all 5. Poor appetite or overeating: not at all 6. Feeling bad about yourself - or that you are a failure or have let yourself or your family down: not at all 7. Trouble concentrating on things, such as reading the newspaper or watching television: not at all 8. Moving or speaking so slowly that other people could have noticed. Or the opposite - being so fidgety or restless that you have been moving around a lot more than usual: not at all 9. Thoughts that you would be better off or of hurting yourself in some way: not at all Total score: 0 Source: Developed by Drs. Dallin Hurtado, Latricia Mohan, Praveen Valdez and colleagues, with an educational el from [employer]. Thrive Questionnaire Date Thrive assessed: 09/28/24 I am a: Patient Within the past 12 months, did the food you bought not last and you didn't have the money to get more?: Never true Within the past 12 months, did you worry whether your food would run out before you got money to buy more?: Never true Do you have trouble paying for medicines?: No Do you have trouble getting transportation to medical appointments?: No Do you have trouble paying your heating and electricity bill?: No Do you have trouble taking care of your child, family member or friend?: No Do you have trouble with day-to-day activities such as bathing, preparing meals, shopping, managing finances, etc.?: No Are you currently unemployed and looking for a job?: No Are you interested in more education?: No THRIVE Score: 0 AUDIT C Alcohol Use Questionnaire (AUDIT-C) 1. How often do you have a drink containing alcohol?: Never 3. How often do you have six or more drinks on one occasion?: Never Total Score: 0 INEZ-7 AMB Questionnaire INEZ-7 Date INEZ - 7 assessed: 09/28/24 Feeling nervous, anxious, or on edge: 0 = Not at all Not being able to stop or control worryin = Not at all Worrying too much about different things: 0 = Not at all Trouble relaxin = Not at all Being so restless that it is hard to sit still: 0 = Not at all Becoming easily annoyed or irritable: 0 = Not at all Feeling afraid as if something awful might happen: 0 = Not at all Total INEZ-7 score (0-4 normal; 5-9 mild; 10-14 moderate; 15-21 severe): 0 Source: Developed by Drs. Dallin Hurtado, Latricia Mohan, Praveen Valdez and colleagues, with an educational el from [employer]. Physical exam (Primary Care) Vital Signs: Last Vital Signs Temp 97.4 F 09/28/24 10:48 Pulse 73 09/28/24 10:48 BP 120/70 09/28/24 10:48 Pulse Ox 99 09/28/24 10:48 Oxygen Delivery Method Room Air 09/28/24 10:48 BMI result Body Mass Index 25.5 Tobacco/Smoking Status: Tobacco use Status Tobacco use date assessed 09/28/24 09/28/24 10:52 Patient Tobacco Use Status Former Tobacco user 09/28/24 10:52 PHQ-9: PHQ-9 Score PHQ-9: Total score 0 09/28/24 10:52 Thrive Assessment: Date of Thrive Assessment Date Thrive assessed 09/28/24 09/28/24 10:52 Coding Level of Care Code New Pt Level 2 (33079) Complex EM visit Add On G2211 Diagnoses Crohn's disease K50.90 Assessment & Plan Assessment & Plan (1) Crohn's disease: Code(s): K50.90 - Crohn's disease, unspecified, without complications Category: Medical Plan: B12 injection given. NO physical examination done. Orders: Orders AMB Vitamin B12 Injection Practice Supplied Today K50.90 - Crohn's disease, unspecified, without complications Medications: New cyanocobalamin (vitamin B-12) 1,000 mcg IM ONCE 1 mL 0RF K50.90 - Crohn's disease, unspecified, without complications
--- NOTE | 2024-09-28 10:48 | AM.OFFVISNUR ---
Intake Visit Reasons: B-12 injection only Allergies infliximab [From Remicade] Allergy (Severe, Verified 07/31/24 09:05) CHEST,ARM PAIN azathioprine [From Imuran] Allergy (Intermediate, Verified 07/31/24 09:05) LOWERED WBC'S Iodinated Contrast Media [IV Dye, Iodine Containing] Allergy (Intermediate, Verified 07/31/24 09:05) CHILLS,RASH,SWEATS alendronate sodium [From FOSAMAX] Allergy (Mild, Verified 07/31/24 09:05) HIVES amoxicillin [AMOXICILLIN] Allergy (Mild, Verified 07/31/24 09:05) HIVES ceftriaxone [From ROCEPHIN] Allergy (Mild, Verified 07/31/24 09:05) HIVES omeprazole [From PRILOSEC] Allergy (Mild, Verified 07/31/24 09:05) HIVES sulfamethoxazole [From Bactrim] Allergy (Mild, Verified 07/31/24 09:05) HIVES lansoprazole [Prevpac] Allergy (Unknown, Verified 07/31/24 09:05) Unknown penicillin V Allergy (Unknown, Verified 07/31/24 09:05) Unknown trimethoprim [From Bactrim] Allergy (Unknown, Verified 07/31/24 09:05) HIVES SURGICAL MESH Allergy (Unknown, Uncoded 07/31/24 09:00) Unknown Coding
--- OUTSIDE RECORDS SUMMARY | 2024-09-28 12:06 | XMS_ITS | Patient Health Record ---
Author Organization [facility] Address [address] [place] [address] Care Team Providers Care Sap Pi Developer Name Role Phone Hi Calvert MD Primary Care Provider Dallin Joya [phone] Allergies Allergen (clinical drug ingredient) Drug/Non Drug Allergy documented on EMR Reaction Allergy Type Onset Date Status Penicillin Unknown Drug Allergy Active ivp dye (uncoded) Unknown Allergy Ac tive Substance with penicillin structure and antibacterial mechanism of action (substance) all cillin drugs (uncoded) Unknown Allergy Active Reason For Referral No Information Medications Medication SIG (Take, Route, Frequency, Duration) Notes [...] 60 MINUTES BEFORE MEALS for 30 Active Immunizations Vaccine Route Administration Date Status Comme nts Flu vaccine no Preserv 3 and > Unknown 04/06/2014 Admin istered Influenza Unknown 03/24/2021 Administered Problems Problem Type SNOMED Code ICD Code Onset Dates Problem Status W/U Status Risk Notes Problem Complication due to Crohn's disease of small intestine (515965152170684 7) Crohn's disease of small intestine with intestinal obstruction (K50.012) Active confirmed Problem Benign neoplasm of stomach (21730060) Gastric polyps (K31.7) Active confirmed Problem Chronic gastritis (4008739) Gastritis, chronic (K29.50) Active confirmed Problem [id number] Iron deficiency anemia due to chronic blood loss (D50.0) Active confirmed Problem 09946278 Iron deficiency anemia, unspecified iron deficiency anemia type (D50.9) Active confirmed Plan Of Treatment Pending Test Test Name Order Date IRON + IBC (FE) 04/13/2021 IRON + IBC (FE) 07/26/2021 CBC w DIFF 04/18/2021 CBC w DIFF 04/13/2021 CBC w DIFF 07/26/2021 CELIAC PANEL #10 04/13/2021 Ferritin 07/26/2021 Ferritin 04/13/2021 Future Test Test Name Order Date UPPER GI ENDOSCOPY BALLOOON DILATION OF ESOPH 10/29/2014 UPPER GI ENDOSCOPY 04/13/2021 Insurance Providers Payer Name Payer Address Payer Phone Subscriber Number Group Number Insured Name Patient Relationship to Insured Coverage Start Date Coverage End Date MEDICARE OF [place] [address] [place] [address] [id number] NANCY ALFONSO Self - patient is the insured [facility] [employer] [address] [place] [address] [id number] NANCY ALFONSO Self - patient is the insured Medical (General) History Medical History History ICD Code Denies AR,CVA,Lung disease,renal disease IDDM Kidney stones Bladder stones [...]
--- OUTSIDE RECORDS SUMMARY | 2024-09-28 12:06 | XMS_ITS | Clinical Summary ---
Author Organization [facility] Facility Address [address] [place] [address] Care Team Providers Care Fabric Worker Foreman Name Role Phone Hi Calvert MD Primary Care Provider [phone] Allergies Active Allergy Reactions Criticality Noted Date Comments Amoxicillin Other (see comments) 08/22/2020 Bacitracin Other (see comments) 08/22/2020 Infliximab Other (see comments) 08/22/2020 Penicillin G Other (see comments) 11/26/2021 Ceftriaxone Other (see comments) 08/22/2020 Sulfa Antibiotics Other (see comments) 08/23/19 Sulfamethoxazole-Trimethoprim Other (see comments) 08/22/2020 Medications Multiple Vitamins-[place] als (MULTIVITAMIN ADULTS 50+ PO) Take 1 [...] wit h diabetic chronic kidney disease 08/22/2020 Immunizations Name Administration Dates Next Due Influenza, [...] Visit [facility] [address] [place] [address] Bijan Cleary MD [address] [facility] [address] [place] [address] Health Maintenance Due Date Last Done Comments Diabetes: Ophthalmology Exam 08/22/2020 Diabetes: Pedal Pulse Checked 08/22/2020 Diabetes: Sensory Foot Exam 08/22/2020 Diabetes: Visual Foot Exam 08/22/2020 Diabetes: Hemoglobin A1C 07/11/2022 022, 10/25/2021 Influenza Vaccine (Season Ended) 2025 03/24/2021, 04/06/2014, 04/06/2014 Pneumococcal Vaccine: 65+ Years Completed [...] Hemoglobin A1C 6.5(A) 4.0 - 6.0 04/10/2022 Historical Provider LAB BLOOD ORDERABLES Charlene segal Result from Last 3 Months or Most Recently Relevant to Health Maintenance Insurance MEDICARE [facility] MEDICARE UNICARE [place] [id number] Care Teams Fabric Worker Foreman Relationship Specialty Start Date End Date Hi Calvert MD [address] [place] [address] DRIVE [address] [place] PCP - General 07/04/20
--- OUTSIDE RECORDS SUMMARY | 2024-09-28 12:06 | XMS_ITS | Encounter Summary ---
Author Organization [facility] Address [address] [place] [address] Phone Care Team Providers Care Cooker Soda Name Role Phone Hi Calvert MD Primary Care Provider [phone] Reason for Visit * Reason Comments Med Refill Encounter Details Date Type Department Care Team (Late st Contact Info) Description 04/09/2024 Refill [facility] [address] [place] [phone] Bijan Cleary MD [address] [address] Social History Tobacco Use Types [...] Visit [facility] [address] [place] [address] Bijan Cleary MD [address] [facility] [address] [place] [address] documented as of this encounter Visit Diagnoses Not on filedocumented in this encounter Care Teams Cooker Soda Relationship Specialty Start Date End Date Hi Calvert MD [address] [facility] [address] [place] PCP - General 07/04/20 documented as of this encounter
--- OUTSIDE RECORDS SUMMARY | 2024-09-28 12:06 | XMS_ITS | Continuity of Care Document ---
Author Organization [facility] [address] [place] [address] Phone [phone] Care Team Providers Care Stone Rougher Name Role Phone Hi Calvert M.D. Care Team Information Receiv er [phone] Problems Active Problems Provider Date Type 2 diabetes mellitus Valentin Helm M.D. Onset: 04/17/2022 Crohn's disease Valentin Helm M.D. Onset: 1 Hyperlipidemia Valentin Helm M.D. Onset: 1 Chronic kidney disease Valentin Helm M.D. O nset: 04/17/2022 Coronary artery bypass graft Valentin Helm M.D. Onset: 04/17/2022 Extraction of cataract Valentin Helm M.D. O nset: 03/08/2023 Social History Type Date Description Comments Sex Unknown Tobacco Use Start: Unknown Never Smoked Cigarettes ETOH Use Occasionally consumes alcoho l Allergies and adverse reactions Active Allergies Criticality Reaction Severity Comments Date Penicillin Unable to assess criticality 04/17/2022 Sulfamethoxazole Unable to assess criticality 04/17/2022 Medications Active Medications SIG Qnty Indications Order ing Provider Date Eslyjedd4le/0.5ML Solution Auto-Inject Inject 5 MG Subcutaneously Once A Week as Directed For 4 Weeks 2units E11.8 Valentin Helm M.D. 02/14/2024 N18.9 I25.10 Zcapkpdqaf1vv Tablets 1 by mouth every day Valentin Helm M.D. 07/09/19 24 Wugjkjs84fl Tablets 1 by mouth every day 90tabs Valentin Helm M.D. 11/24/19 23 Esnkmgz6sv Tablets 1 by mouth every day Valentin Helm M.D. 08/23/19 23 Vitamin Deficiency Injectable System-M120203oek/ML Kit inject every month Valentin Aly M.D. 08/22/[address] 1 by mouth every day 90tabs Valentin Helm M.D. 04/17/20 22 Metoprolol Succinate ER25mg Tablets ER 24HR Take 1 Tablet By Mouth Every Day as Directed Hi Calvert M.D. Yepqxsixxnp686wc Tablets Take 2 Tablets By Mouth Every Day Unknown Potassium Citrate KG51Svj (1080 mg) Tablets ER Take 1 Tablet By Mouth Twice A Day as Directed Unknown Atorvastatin Intmvds58ag Tablets Take 1 Tablet By Mouth Everyday AT Bedtime Hi Calvert M.D. Pantoprazole Yjzzjv17wg Tablets DR Take 1 Tablet By Mouth Twice A Day Unknown History Medications Mounjaro2.5mg/0.5ML Solution Pen-Inject inject 2.5mg subcutaneously once a week as directed for 4 weeks 2ml Valentin Helm M.D. 01/22/2024 - 02/14/2024 Vital Signs Date Vital Result Comment 08/12/2024 1:18pm BP Systolic 100 mmHg BP Diastolic 60 mmHg Heart Rate 72 /min Height 70.5 inches 5'10.50 Weight 176.38 lb BMI (Body Mass Index) 24.9 kg/m2 Results Test Acquired Date Facility Test Result H/L Range N ote Glucose Fingerstick 08/12/2024 Inhouse Glucose Fingerstick 162 Hemoglobin A1c 08/12/2024 Inhouse Hemoglobin A1c 6.2% Hemoglobin A1c 04/29/2024 Inhouse Hemoglobin A1c 6.6% Glucose Fingerstick 04/29/2024 Inhouse Glucose Fingerstick 145 Hemoglobin A1c 01/22/2024 Inhouse Hemoglobin A1c 7.6% Glucose Fingerstick 01/22/2024 Inhouse Glucose Fingerstick 253 Hemoglobin A1c 10/16/2023 Inhouse Hemoglobin A1c 7.9% Glucose Fingerstick 10/16/2023 Inhouse Glucose Fingerstick 272 Glucose Fingerstick 07/09/2023 Inhouse Glucose Fingerstick 162 Hemoglobin A1c 07/09/2023 Inhouse Hemoglobin A1c 7.5% Hemoglobin A1c 03/08/2023 Inhouse Hemoglobin A1c 6.8% Glucose Fingerstick 03/08/2023 Inhouse Glucose Fingerstick 208 Hemoglobin A1c 11/23/2022 Inhouse Hemoglobin A1c 7.3% Glucose Fingerstick 11/23/2022 Inhouse Glucose Fingerstick 141 Hemoglobin A1c 08/22/2022 Inhouse Hemoglobin A1c 7.6% Glucose Fingerstick 08/22/2022 Inhouse Glucose Fingerstick 181 Hemoglobin A1c 04/17/2022 Inhouse Hemoglobin A1c 6.6% Glucose Fingerstick 04/17/2022 Inhouse Glucose Fingerstick 126 Medical Devices Description No Information Available Encounters Type Date Location Provider Dx Diagnosis Office Visit 08/12/2024 1:15p Main Office Valentin Helm M.D. E11.8 Type 2 diabetes mellitus with unspecified complications I25.10 Athscl heart disease of augustine coronary artery w/o ang pctrs N18.9 Chronic kidney disea se, unspecified Assessments Date Code Description Provider 08/12/2024 E11.8 Complication due to diabetes mellitus Valentin Helm M.D. 08/12/2024 I25.10 Coronary atherosclerosis Monalisa Helm M.D. 08/12/2024 N18.9 Chronic kidney disease Valentin Helm M.D. Plan of Treatment Future Appointment(s):* 01/14/2025 9:00 am - Valentin Helm M.D. at Main Office 10/16/2023 - Valentin Helm M.D.* E11.8 Complication due to diabetes mellitus * N18.9 Chronic kidney disease * I25.10 Coronary atherosclerosis Functional Status Description No Information Available Mental Status Description No Information Available Referrals Description No Information Available
== END 2024-09-28 11:22 | disposition home or self-care (01) ==
LOC: HO.HMCHD 10:21
PROVIDERS: PCP Internal Medicine; Visit Provider Internal Medicine
DX: K50.90 Crohn's disease, unspecified, without complications (principal)

== ENCOUNTER → 2024-09-28 10:21 | Outpatient (BNVA) | payer MEDICARE, OTHER, SELFPAY | PROVIDERS: PCP Internal Medicine; Visit Provider Internal Medicine | DX: K50.90 Crohn's disease, unspecified, without complications (principal) | CPT/HCPCS: 96127; 99202 ==

== ENCOUNTER 2024-10-26 10:35 | Outpatient (AMB) | payer MEDICARE, OTHER, SELFPAY ==
--- NOTE | 2024-10-26 11:20 | MHC.PC.OV ---
Intake Visit Reasons: B-12 Injection Allergies infliximab [From Remicade] Allergy (Severe, Verified 09/28/24 10:49) CHEST,ARM PAIN azathioprine [From Imuran] Allergy (Intermediate, Verified 09/28/24 10:49) LOWERED WBC'S Iodinated Contrast Media [IV Dye, Iodine Containing] Allergy (Intermediate, Verified 09/28/24 10:49) CHILLS,RASH,SWEATS alendronate sodium [From FOSAMAX] Allergy (Mild, Verified 09/28/24 10:49) HIVES amoxicillin [AMOXICILLIN] Allergy (Mild, Verified 09/28/24 10:49) HIVES ceftriaxone [From ROCEPHIN] Allergy (Mild, Verified 09/28/24 10:49) HIVES omeprazole [From PRILOSEC] Allergy (Mild, Verified 09/28/24 10:49) HIVES sulfamethoxazole [From Bactrim] Allergy (Mild, Verified 09/28/24 10:49) HIVES lansoprazole [Prevpac] Allergy (Unknown, Verified 09/28/24 10:49) Unknown penicillin V Allergy (Unknown, Verified 09/28/24 10:49) Unknown trimethoprim [From Bactrim] Allergy (Unknown, Verified 09/28/24 10:49) HIVES SURGICAL MESH Allergy (Unknown, Uncoded 09/28/24 10:49) Unknown Tobacco use date assessed: 09/28/24 Dental Screening Dental Screen Date: 09/28/24 COUNTS INCLUDE 234 BEDS AT [facility] Medical History (Updated 10/26/24 @ 11:20 by Pavan Romero MD) Vitamin B 12 deficiency Epidermal cyst Enlarged prostate Elevated cholesterol Crohn disease Squamous cell cancer of lip Lesion of lip Calculus of kidney CAD (coronary artery disease) Gout Nephrolithiasis Diabetes mellitus Surgical History History of removal of cyst (~06/03/23) H/O squamous cell carcinoma excision (10/17/22) History of biopsy (09/25/22) History of esophagogastroduodenoscopy (EGD) H/O cystoscopy History of quadruple bypass (~10/2016) H/O thumb surgery H/O ileostomy Family History Father Colon cancer Mother No problems noted. Paternal Grandfather Cancer of unknown origin Social History Housing: House Patient Tobacco Use Status: Former Tobacco user service: No Current occupational status: retired Cognitive needs: No Hearing needs: No Vision needs: Yes (reading glasses) Questionnaire Thrive Questionnaire Date Thrive assessed: 09/28/24 INEZ-7 AMB Questionnaire INEZ-7 Date INEZ - 7 assessed: 09/28/24 Source: Developed by Drs. Dallin Hurtado, Latricia Mohan, Praveen Valdez and colleagues, with an educational el from [employer]. Physical exam (Primary Care) Tobacco/Smoking Status: Tobacco use Status Tobacco use date assessed 09/28/24 09/28/24 10:52 Patient Tobacco Use Status Former Tobacco user 09/28/24 10:52 Thrive Assessment: Date of Thrive Assessment Date Thrive assessed 09/28/24 09/28/24 10:52 Office Meds cyanocobalamin (vitamin B-12) 1,000 mcg/mL injection solution Performing Provider: Pavan Romero MD Performing Location: [facility] [place] Adult Primary Care-10 HD Administered by: Pavan Romero MD on 10/26/24 11:21 Dose Route Admin Location Dispensed Lot Number Expiration Date [facility] Production Recorder 1,000 mcg IM 1 mL [id number] 03/24/26 8896-6692-08 [facility] Coding Level of Care Code Est Pt Level 1 (33804) Diagnoses Vitamin B 12 deficiency E53.8 Assessment & Plan Assessment & Plan (1) Vitamin B 12 deficiency: Code(s): E53.8 - Deficiency of other specified B group vitamins Category: Medical Plan: Injection given Orders: Orders AMB Vitamin B12 Injection Practice Supplied Today E53.8 - Deficiency of other specified B group vitamins Medications: New cyanocobalamin (vitamin B-12) 1,000 mcg IM ONCE 1 mL 0RF E53.8 - Deficiency of other specified B group vitamins
--- OUTSIDE RECORDS SUMMARY | 2024-10-26 11:59 | XMS_ITS | Encounter Summary ---
Author Organization [facility] Address [address] [place] [address] Phone Care Team Providers Care Assembly Line Machine Operator Name Role Phone Hi Calvert MD Primary Care Provider [phone] Reason for Visit * Reason Comments Med Refill Encounter Details Date Type Department Care Team (Late st Contact Info) Description 04/09/2024 Refill [facility] [address] [place] [phone] Bijan Cleary MD [address] [address] Social History Tobacco Use Types [...] Visit [facility] [address] [place] [address] Bijan Cleary MD [address] [facility] [address] [place] [address] documented as of this encounter Visit Diagnoses Not on filedocumented in this encounter Care Teams Assembly Line Machine Operator Relationship Specialty Start Date End Date Hi Calvert MD [address] [place] PCP - General 07/04/20 documented as of this encounter
--- OUTSIDE RECORDS SUMMARY | 2024-10-26 11:59 | XMS_ITS | Clinical Summary ---
Author Organization [facility] Facility Address [address] [place] [address] Care Team Providers Care Operating Room Aide Name Role Phone Hi Calvert MD Primary Care Provider [phone] Allergies Active Allergy Reactions Criticality Noted Date Comments Amoxicillin Other (see comments) 08/22/2020 Bacitracin Other (see comments) 08/22/2020 Infliximab Other (see comments) 08/22/2020 Penicillin G Other (see comments) 11/26/2021 Ceftriaxone Other (see comments) 08/22/2020 Sulfa Antibiotics Other (see comments) 08/23/19 Sulfamethoxazole-Trimethoprim Other (see comments) 08/22/2020 Medications Multiple Vitamins-[place] als (MULTIVITAMIN ADULTS 50+ PO) Take 1 [...] h diabetic chronic kidney disease 08/22/2020 Immunizations Immunization Administration Dates Next Due Influenza, Unspecified 03/24/2021,04/06/2014 [...] Visit [facility] [address] [place] [address] Bijan Cleary MD [address] [facility] [address] [place] [address] Health Maintenance Due Date Last Done Comments Diabetes: Ophthalmology Exam 08/22/2020 Diabetes: Pedal Pulse Checked 08/22/2020 Diabetes: Sensory Foot Exam 08/22/2020 Diabetes: Visual Foot Exam 08/22/2020 Diabetes: Hemoglobin A1C 07/11/2022 022, 10/25/2021 Influenza Vaccine (Season Ended) 2025 03/24/2021, 04/06/2014, 04/06/2014 Pneumococcal Vaccine: 50+ Years Completed 10/21/2016, 03/06/2013 Pneumococcal Vaccine: Peds ( 0 to 5 Years) and At-Risk Patients (6 to 49 Years) Discontinued 10/21/2016, 03/06/2013 Hepatitis B Vaccine Aged Out [...] Hemoglobin A1C 6.5(A) 4.0 - 6.0 04/10/2022 us Historical Provider LAB BLOOD ORDERABLES Charlene l Result from Last 3 Months or Most Recently Relevant to Health Maintenance Insurance Medicare [facility] Medicare Unicare Care Teams Operating Room Aide Relationship Specialty Start Date End Date Hi Calvert MD [address] [place] PCP - General 07/04/20
--- OUTSIDE RECORDS SUMMARY | 2024-10-26 11:59 | XMS_ITS | Patient Health Record ---
Author Organization [facility] Address [address] [place] [address] Care Team Providers Care Occupational Therapist Home Based Name Role Phone Hi Calvert MD Primary Care Provider Dallin Joya [phone] Allergies Allergen (clinical drug ingredient) Drug/Non Drug [...] due to Crohn's disease of small intestine (083722092455329 7) Crohn's disease of small intestine with intestinal obstruction (K50.012) Active confirmed Problem Benign neoplasm of stomach (73123154) Gastric polyps (K31.7) Active confirmed Problem Chronic gastritis (3645684) Gastritis, chronic (K29.50) Active confirmed Problem [id number] Iron deficiency anemia due to chronic blood loss (D50.0) Active confirmed Problem 97645443 Iron deficiency anemia, unspecified iron deficiency anemia [...] Date MEDICARE OF [place] [address] [place] [address] [id number] NANCY ALFONSO Self - patient is the insured [facility] INDEMNITY [address] [place] [address] [id number] NANCY ALFONSO Self - patient is the insured Medical (General) History Medical History History ICD Code Denies [place],CVA,Lung disease,renal disease IDDM Kidney stones Bladder stones [...]
== END 2024-10-26 11:28 | disposition home or self-care (01) ==
LOC: HO.HMCHD 10:36
PROVIDERS: PCP Internal Medicine; Visit Provider Internal Medicine
DX: E53.8 Deficiency of other specified B group vitamins (principal)

== ENCOUNTER → 2024-10-26 10:35 | Outpatient (BNVA) | payer MEDICARE, OTHER, SELFPAY | PROVIDERS: PCP Internal Medicine; Visit Provider Internal Medicine | DX: E53.8 Deficiency of other specified B group vitamins (principal) | CPT/HCPCS: 96372; 99211; J3420 ==

== ENCOUNTER 2024-11-26 13:10 | Outpatient (AMB) | payer MEDICARE, OTHER, SELFPAY ==
--- NOTE | 2024-11-26 13:12 | AM.OFFVISNUR ---
Intake Visit Reasons: B-12 Allergies infliximab [From Remicade] Allergy (Severe, Verified 09/28/24 10:49) CHEST,ARM PAIN azathioprine [From Imuran] Allergy (Intermediate, Verified 09/28/24 10:49) LOWERED WBC'S Iodinated Contrast Media [IV Dye, Iodine Containing] Allergy (Intermediate, Verified 09/28/24 10:49) CHILLS,RASH,SWEATS alendronate sodium [From FOSAMAX] Allergy (Mild, Verified 09/28/24 10:49) HIVES amoxicillin [AMOXICILLIN] Allergy (Mild, Verified 09/28/24 10:49) HIVES ceftriaxone [From ROCEPHIN] Allergy (Mild, Verified 09/28/24 10:49) HIVES omeprazole [From PRILOSEC] Allergy (Mild, Verified 09/28/24 10:49) HIVES sulfamethoxazole [From Bactrim] Allergy (Mild, Verified 09/28/24 10:49) HIVES lansoprazole [Prevpac] Allergy (Unknown, Verified 09/28/24 10:49) Unknown penicillin V Allergy (Unknown, Verified 09/28/24 10:49) Unknown trimethoprim [From Bactrim] Allergy (Unknown, Verified 09/28/24 10:49) HIVES SURGICAL MESH Allergy (Unknown, Uncoded 09/28/24 10:49) Unknown Nursing Note Verified pt name and , pt reports feeling well today, tolerated injection well Office Meds cyanocobalamin (vitamin B-12) 1,000 mcg/mL injection solution Performing Provider: Amna Toth MD Performing Location: [facility] [place] [facility]-10 HD Administered by: Keiko Reeys RN on 11/26/24 13:16 Dose Route Admin Location Dispensed Lot Number Expiration Date [facility] Anti Tank [employer]ile[employer] 1,000 mcg IM 1 mL [id number] 04/23/26 [id number] [facility] Comments: tolerated well Assessment & Plan Assessment & Plan Orders: Orders AMB Vitamin B12 Injection Practice Supplied Today Amna Toth MD E53.8 - Deficiency of other specified B group vitamins Medications: New cyanocobalamin (vitamin B-12) 1,000 mcg IM ONCE 1 mL 0RF Pavan Romero MD E53.8 - Deficiency of other specified B group vitamins Coding Level of Care Code Procedure Only
--- OUTSIDE RECORDS SUMMARY | 2024-11-26 15:25 | XMS_ITS | Encounter Summary ---
Author Organization [facility] Address [address] [place] [address] Phone Care Team Providers Care Electrotype Servicer Name Role Phone Hi Calvert MD Primary Care Provider [phone] Reason for Visit * Reason Comments Med Refill Encounter Details Date Type Department Care Team (Late st Contact Info) Description 04/09/2024 Refill [facility] [address] [place] [phone] Bijan Cleary MD [address] [address] Social History Tobacco Use Types [...] Visit [facility] [address] [place] [address] Bijan Cleary MD [address] [facility] [address] [place] [address] documented as of this encounter Visit Diagnoses Not on filedocumented in this encounter Care Teams Electrotype Servicer Relationship Specialty Start Date End Date Hi Calvert MD [address] [place] PCP - General 07/04/20 documented as of this encounter
== END 2024-11-26 13:18 | disposition home or self-care (01) ==
LOC: HO.HMCHD 13:10
PROVIDERS: PCP Internal Medicine
DX: E53.8 Deficiency of other specified B group vitamins (principal)

== ENCOUNTER → 2024-11-26 13:10 | Outpatient (BNVA) | payer MEDICARE, OTHER, SELFPAY | PROVIDERS: PCP Internal Medicine | DX: E53.8 Deficiency of other specified B group vitamins (principal) | CPT/HCPCS: 96372; J3420 ==

== ENCOUNTER 2024-12-21 13:35 | Outpatient (AMB) | payer MEDICARE, OTHER, SELFPAY ==
[2024-12-21 13:39] VITALS: BMI 25.5
--- NOTE | 2024-12-21 13:39 | A.OFFVIS_ITS ---
Vital Signs 12/21/24 13:39 12/21/24 13:43 Height 5 ft 10 in 5 ft 10 in Weight 178 lb 178 lb BMI 25.5 25.5 Intake Visit Reasons: INJ-Left shoulder pain/injury last inj 07/31/24 Intake Note: Jamie is a 79 year old right hand dominant male who presents today for a left shoulder injection, last injection 07/31/24. Patient reports injections provided him with relief, wishes to proceed with injections. Allergies infliximab (From Remicade) Allergy (Severe, Verified 09/28/24 10:49) CHEST,ARM PAIN azathioprine (From Imuran) Allergy (Intermediate, Verified 09/28/24 10:49) LOWERED WBC'S Iodinated Contrast Media (IV Dye, Iodine Containing) Allergy (Intermediate, Verified 09/28/24 10:49) CHILLS,RASH,SWEATS alendronate sodium (From FOSAMAX) Allergy (Mild, Verified 09/28/24 10:49) HIVES amoxicillin (AMOXICILLIN) Allergy (Mild, Verified 09/28/24 10:49) HIVES ceftriaxone (From ROCEPHIN) Allergy (Mild, Verified 09/28/24 10:49) HIVES omeprazole (From PRILOSEC) Allergy (Mild, Verified 09/28/24 10:49) HIVES sulfamethoxazole (From Bactrim) Allergy (Mild, Verified 09/28/24 10:49) HIVES lansoprazole (Prevpac) Allergy (Unknown, Verified 09/28/24 10:49) Unknown penicillin V Allergy (Unknown, Verified 09/28/24 10:49) Unknown trimethoprim (From Bactrim) Allergy (Unknown, Verified 09/28/24 10:49) HIVES SURGICAL MESH Allergy (Unknown, Uncoded 09/28/24 10:49) Unknown HPI HPI INJ-Left shoulder pain/injury last inj 07/31/24: Details: 79-year-old gentleman returns to the office today for a follow-up left shoulder pain . He had previous injections which were helpful however most recently he was on covering his pool and he felt a pulling pain sensation in the left shoulder upon pulling the cover off. He has a an upcoming trip and is concerned about worsening symptoms while he is away. [facility] Medical History (Updated 12/21/24 @ 14:03 by Martir Rincon PA-C) Vitamin B 12 deficiency Epidermal cyst Enlarged prostate Elevated cholesterol Crohn disease Squamous cell cancer of lip Lesion of lip Calculus of kidney CAD (coronary artery disease) Gout Nephrolithiasis Diabetes mellitus Surgical History History of removal of cyst (~06/03/23) H/O squamous cell carcinoma excision (10/17/22) History of biopsy (09/25/22) History of esophagogastroduodenoscopy (EGD) H/O cystoscopy History of quadruple bypass (~10/2016) H/O thumb surgery H/O ileostomy Family History Father Colon cancer Mother No problems noted. Paternal Grandfather Cancer of unknown origin Social History Housing: House Patient Tobacco Use Status: Former Tobacco user service: No Current occupational status: retired Cognitive needs: No Hearing needs: No Vision needs: Yes (reading glasses) Review of Systems Const All systems reviewed & are unremarkable except as noted in HPI and below Physical Exam Vital Signs: BMI result Body Mass Index 25.5 Extrem Other: Left shoulder normal to inspection. Tenderness over the bicipital groove and along deltoid region of the shoulder. FF to 175, ER to 90, IR to S1. 5/5 RTC strength, positive luz, cross body abduction. NVI. Office Procedures AMB Joint Injection/Aspiration Joint Injection/Aspiration Primary Site: left shoulder Prep: site was prepped using aseptic technique, ethochloride spray was applied and injection warnings given Injected: 80 mg of, DepoMedrol, with 8 mL of, 1% plain lidocaine and in the subcromial space Approach Used: posterolateral Procedure: The patient tolerated the procedure well and there was some relief with the local anesthesia Coding 90420 - Glenohumeral/Tronchanteric Bursa/Intraarticular Procedure code (CPT) selection complete Assessment & Plan Assessment & Plan (1) Osteoarthritis of left shoulder: Code(s): M19.012 - Primary osteoarthritis, left shoulder Category: Medical (2) Left shoulder tendonitis: Code(s): M77.8 - Other enthesopathies, not elsewhere classified Category: Medical Plan We discussed options today, which include steroid injection. The patient did consent to move forward with the left shoulder injection, which was tolerated well.? I recommended rest, ice and elevation and OTC antiinflammatories prn for discomfort. If symptoms persist over the next 6-8 weeks, they will contact our office, otherwise, prn Coding Level of Care Code Est Pt Level 3 (26541) Complex EM visit Add On G2211 Diagnoses Osteoarthritis of left shoulder M19.012 Left shoulder tendonitis M77.8 CPT Codes Coding - Joint 7: 36958 - Glenohumeral/Tronchanteric Bursa/Intraarticular ([id number])
[2024-12-21 13:43] VITALS: BMI 25.5
--- OUTSIDE RECORDS SUMMARY | 2024-12-21 14:03 | XMS_ITS | Encounter Summary ---
Author Organization [facility] Address [address] [place] [address] Phone Care Team Providers Care Cupola Liner Helper Name Role Phone Hi Calvert MD Primary Care Provider [phone] Reason for Visit * Reason Comments Med Refill Encounter Details Date Type Department Care Team (Late st Contact Info) Description 04/09/2024 Refill [facility] [address] [place] [phone] Bijan Cleary MD [address] [address] Social History Tobacco Use Types [...] Visit [facility] [address] [place] [address] Bijan Cleary MD [address] [address] documented as of this encounter Visit Diagnoses Not on filedocumented in this encounter Care Teams Cupola Liner Helper Relationship Specialty Start Date End Date Hi Calvert MD [address] [place] PCP - General 07/04/20 documented as of this encounter
--- OUTSIDE RECORDS SUMMARY | 2024-12-21 14:03 | XMS_ITS | Patient Health Record ---
Author Organization [facility] Address [address] [place] [address] Care Team Providers Care Home Health Care Respiratory Therapist Name Role Phone Hi Calvert MD Primary Care Provider Dallin Joya [phone] Allergies Allergen (clinical drug ingredient) Drug/Non Drug [...] due to Crohn's disease of small intestine (112905855905807 7) Crohn's disease of small intestine with intestinal obstruction (K50.012) Active confirmed Problem Benign neoplasm of stomach (92925190) Gastric polyps (K31.7) Active confirmed Problem Chronic gastritis (4856691) Gastritis, chronic (K29.50) Active confirmed Problem 341378900 Iron deficiency anemia due to chronic blood loss (D50.0) Active confirmed Problem 71878813 Iron deficiency anemia, unspecified iron deficiency anemia [...] Date MEDICARE OF [place] [address] [place] [address] [id number] NANCY ALFONSO Self - patient is the insured [facility] INDEMNITY [address] [place] [address] [id number] NANCY ALFONSO Self - patient is the insured Medical (General) History Medical History History ICD Code Denies [place],CVA,Lung disease,renal disease IDDM Kidney stones Bladder stones [...]
--- OUTSIDE RECORDS SUMMARY | 2024-12-21 14:03 | XMS_ITS | Continuity of Care Document ---
Author Organization [facility] [address] [facility] [address] [place] [address] Phone [phone] Care Team Providers Care Business Center Attendant Name Role Phone Hi Calvert M.D. Care Team Information Receiv er [phone] Problems Active Problems Provider Date Type 2 diabetes mellitus Valentin Helm M.D. Onset: 04/17/2022 Crohn's disease Valentin Helm M.D. Onset: 1 Hyperlipidemia Valentin Heml M.D. Onset: 1 Chronic kidney disease Valentin Helm M.D. O nset: 04/17/2022 Coronary artery bypass graft Valentin Helm M.D. Onset: 04/17/2022 Extraction of cataract Valentin Helm M.D. O nset: 03/08/2023 Social History Type Date Description Comments Sex Male Sex Unknown Tobacco Use Start: Unknown Never Smoked Cigarettes ETOH Use Occasionally consumes alcoho l Allergies and adverse reactions Active Allergies Criticality Reaction Severity Comments Date Penicillin Unable to assess criticality 04/17/2022 Sulfamethoxazole Unable to assess criticality 04/17/2022 Medications Active Medications SIG Qnty Indications Order ing Provider Date Vyhovzzm3el/0.5ML Solution Auto-Inject Inject 5 MG Subcutaneously Once A Week as Directed For 4 Weeks 2units E11.8 Valentin Helm M.D. 02/14/2024 N18.9 I25.10 Luzfywzqch5lj Tablets 1 by mouth every day Valentin Helm M.D. 07/09/19 24 Pcwjihm18pq Tablets 1 by mouth every day 90tabs Valentin Helm M.D. 11/24/19 23 Pjejoxg1pz Tablets 1 by mouth every day Valentin Helm M.D. 08/23/19 23 Vitamin Deficiency Injectable System-F748013ofm/ML Kit inject every month Valentin Aly M.D. 08/22/[address] 1 by mouth every day 90tabs Valentin Helm M.D. 04/17/20 22 Metoprolol Succinate ER25mg Tablets ER 24HR Take 1 Tablet By Mouth Every Day as Directed Hi Calvert M.D. Zpkvttwxmqo572gl Tablets Take 2 Tablets By Mouth Every Day Unknown Potassium Citrate PL33Lej (1080 mg) Tablets ER Take 1 Tablet By Mouth Twice A Day as Directed Unknown Atorvastatin Vknjgch79mx Tablets Take 1 Tablet By Mouth Everyday AT Bedtime Hi Calvert M.D. Pantoprazole Wuzpha06gc Tablets DR Take 1 Tablet By Mouth [...] unspecified complications I25.10 Athscl heart disease of [place] coronary artery w/o ang pctrs N18.9 Chronic [...]
== END 2024-12-21 14:26 | disposition home or self-care (01) ==
LOC: HO.HOS 13:35
PROVIDERS: PCP Internal Medicine; Visit Provider Physician Assistant
DX: M19.012 Primary osteoarthritis, left shoulder (principal); M77.8 Other enthesopathies, not elsewhere classified
CPT/HCPCS: 20610; 99213

== ENCOUNTER → 2024-12-21 13:35 | Outpatient (BNVA) | payer MEDICARE, OTHER, SELFPAY | PROVIDERS: PCP Internal Medicine; Visit Provider Physician Assistant | DX: M19.012 Primary osteoarthritis, left shoulder (principal); M77.8 Other enthesopathies, not elsewhere classified | CPT/HCPCS: 20610; 99212; J1010; J2003 ==

== ENCOUNTER 2024-12-24 13:05 | Outpatient (AMB) | payer MEDICARE, OTHER, SELFPAY ==
--- NOTE | 2024-12-24 13:06 | A.OFFPC_ITS ---
Vital Signs 12/24/24 13:09 12/24/24 13:11 Height 5 ft 10 in Weight 174 lb BP 132/62 Blood Pressure Location Lt brachial Position Sitting Respiration 16 Pulse 84 Pulse Source Pulse Oximeter Temp 97.8 F Temp Source Temporal Artery Scan Pulse Oximetry (%) 99 Oxygen Delivery Method Room Air Intake Visit Reasons: B 12 Wood Router Hand Required: No Accompanied by: Self / Same As Patient Allergies infliximab (From Remicade) Allergy (Severe, Verified 12/24/24 13:06) CHEST,ARM PAIN azathioprine (From Imuran) Allergy (Intermediate, Verified 12/24/24 13:06) LOWERED WBC'S Iodinated Contrast Media (IV Dye, Iodine Containing) Allergy (Intermediate, Verified 12/24/24 13:06) CHILLS,RASH,SWEATS alendronate sodium (From FOSAMAX) Allergy (Mild, Verified 12/24/24 13:06) HIVES amoxicillin (AMOXICILLIN) Allergy (Mild, Verified 12/24/24 13:06) HIVES ceftriaxone (From ROCEPHIN) Allergy (Mild, Verified 12/24/24 13:06) HIVES omeprazole (From PRILOSEC) Allergy (Mild, Verified 12/24/24 13:06) HIVES sulfamethoxazole (From Bactrim) Allergy (Mild, Verified 12/24/24 13:06) HIVES lansoprazole (Prevpac) Allergy (Unknown, Verified 12/24/24 13:06) Unknown penicillin V Allergy (Unknown, Verified 12/24/24 13:06) Unknown trimethoprim (From Bactrim) Allergy (Unknown, Verified 12/24/24 13:06) HIVES SURGICAL MESH Allergy (Unknown, Uncoded 09/28/24 10:49) Unknown Tobacco use date assessed: 09/28/24 Dental Screening Dental Screen Date: 09/28/24 HPI HPI Comments History of Present Illness Details The patient is a 79 year old male with b12 deficiency presenting for his monthly b12 injection Vitals reviewed. PHYSICAL EXAM: GENERAL: Alert and oriented x 3. NAD EYES: EOMI. Anicteric. SKIN: No rashes or lesions. Warm. NEUROLOGIC: No focal neurological deficits. CN II-XII grossly intact PSYCHIATRIC: Cooperative. 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 Paternal Grandfather Cancer of unknown origin Social History Housing: House Patient Tobacco Use Status: Former Tobacco user service: No Current occupational status: retired Cognitive needs: No Hearing needs: No Vision needs: Yes (reading glasses) Questionnaire Thrive Questionnaire Date Thrive assessed: 09/28/24 INEZ-7 AMB Questionnaire INEZ-7 Date INEZ - 7 assessed: 09/28/24 Source: Developed by Drs. Dallin Hurtado, Latricia Mohan, Praveen Valdez and colleagues, with an educational el from [employer]. Physical exam (Primary Care) Vital Signs: Last Vital Signs Temp 97.8 F 12/24/24 13:09 Pulse 84 12/24/24 13:09 Resp 16 12/24/24 13:09 BP 132/62 12/24/24 13:09 Pulse Ox 99 12/24/24 13:09 Oxygen Delivery Method Room Air 12/24/24 13:09 Tobacco/Smoking Status: Tobacco use Status Tobacco use date assessed 09/28/24 12/24/24 13:08 Patient Tobacco Use Status Former Tobacco user 12/24/24 13:08 Thrive Assessment: Date of Thrive Assessment Date Thrive assessed 09/28/24 12/24/24 13:08 Office Meds cyanocobalamin (vitamin B-12) 1,000 mcg/mL injection solution Performing Provider: Amna Toth MD Performing Location: [facility] [place] [facility]-10 HD Administered by: Amna Toth MD on 12/27/24 09:36 Dose Route Admin Location Dispensed Lot Number Expiration Date NDC Magazine Grinder Loader 1,000 mcg IM Left deltoid 1 mL Total Dispensed Waste 1 mL 0 % Comments: Prepped with alcohol pad Administered 1000mcg IM to left deltoid. Tolerated procedure well Coding Level of Care Code Est Pt Level 1 (47165) Diagnoses Vitamin B 12 deficiency E53.8 Ulcerative colitis with complication, unspecified location K51.919 Digestive disease complication type: unspecified complication Ulcerative colitis location: unspecified ulcerative colitis location Assessment & Plan Assessment & Plan (1) Vitamin B 12 deficiency: Code(s): E53.8 - Deficiency of other specified B group vitamins Category: Medical (2) Ulcerative colitis: Code(s): K51.90 - Ulcerative colitis, unspecified, without complications Category: Medical Qualifiers: Digestive disease complication type: unspecified complication Ulcerative colitis location: unspecified ulcerative colitis location Qualified Code(s): K51.919 - Ulcerative colitis, unspecified with unspecified complications Plan Patients vitals stable b12 administered without complication Orders: Orders AMB Vitamin B12 Injection Practice Supplied 12/24/24 E53.8 - Deficiency of other specified B group vitamins, K51.90 - Ulcerative colitis, unspecified, without complications
[2024-12-24 13:09] VITALS: BP 132/62; PULSE 84; RESP 16; TEMP 36.6; O2SAT 99
--- OUTSIDE RECORDS SUMMARY | 2024-12-24 13:11 | XMS_ITS | Encounter Summary ---
Author Organization [facility] Address [address] [place] [address] Phone Care Team Providers Care Health Care Liaison Name Role Phone Hi Calvert MD Primary Care Provider [phone] Reason for Visit * Reason Comments Med Refill Encounter Details Date Type Department Care Team (Late st Contact Info) Description 04/09/2024 Refill [facility] [address] [place] [phone] Bijan Cleary MD [address] [address] Social History Tobacco Use Types [...] Visit [facility] [address] [place] [address] Bijan Cleary MD [address] [facility] [address] [place] [address] documented as of this encounter Visit Diagnoses Not on filedocumented in this encounter Care Teams Health Care Liaison Relationship Specialty Start Date End Date Hi Calvert MD [address] [place] PCP - General 07/04/20 documented as of this encounter
--- OUTSIDE RECORDS SUMMARY | 2024-12-24 13:11 | XMS_ITS | Patient Health Record ---
Author Organization [facility] Address [address] [place] [address] Care Team Providers Care Components Engineer Name Role Phone Hi Calvert MD Primary Care Provider Dallin Joya [phone] Allergies Allergen (clinical drug ingredient) Drug/Non Drug [...] due to Crohn's disease of small intestine (995607865811407 7) Crohn's disease of small intestine with intestinal obstruction (K50.012) Active confirmed Problem Benign neoplasm of stomach (39329329) Gastric polyps (K31.7) Active confirmed Problem Chronic gastritis (2318911) Gastritis, chronic (K29.50) Active confirmed Problem 830344809 Iron deficiency anemia due to chronic blood loss (D50.0) Active confirmed Problem 48244848 Iron deficiency anemia, unspecified iron deficiency anemia type (D50.9) Active confirmed Plan Of Treatment Pending Test Test Name Order Date IRON + IBC (FE) 04/13/2021 IRON + IBC (FE) 07/26/2021 CBC w DIFF 07/26/2021 CBC w DIFF 04/18/2021 CBC w DIFF 04/13/2021 CELIAC PANEL #10 04/13/2021 Ferritin 07/26/2021 Ferritin 04/13/2021 Future Test Test Name Order Date UPPER GI ENDOSCOPY [place] DILATION OF ESOPH 10/29/2014 UPPER GI ENDOSCOPY 04/13/2021 Insurance Providers Payer Name Payer Address Payer Phone Subscriber Number Group Number Insured Name Patient Relationship to Insured Coverage Start Date Coverage End Date MEDICARE OF [place] [address] [place] [address] [id number] NANCY ALFONSO Self - patient is the insured [facility] INDEMNITY [address] [place] [address] [id number] NANCY ALFONSO Self - patient is the insured Medical (General) History Medical History History ICD Code Denies [place],CVA,Lung disease,renal disease IDDM Kidney stones Bladder stones [...]
== END 2024-12-24 13:28 | disposition home or self-care (01) ==
LOC: HO.HMCHD 13:06
PROVIDERS: PCP Internal Medicine; Visit Provider Internal Medicine
DX: E53.8 Deficiency of other specified B group vitamins (principal); K51.90 Ulcerative colitis, unspecified, without complications; K51.919 Ulcerative colitis, unspecified with unspecified complications

== ENCOUNTER → 2024-12-24 13:05 | Outpatient (BNVA) | payer MEDICARE, OTHER, SELFPAY | PROVIDERS: PCP Internal Medicine; Visit Provider Internal Medicine | DX: E53.8 Deficiency of other specified B group vitamins (principal); K51.919 Ulcerative colitis, unspecified with unspecified complications | CPT/HCPCS: 96372; 99211; J3420 ==

== ENCOUNTER 2025-01-25 09:06 | Outpatient (AMB) | payer MEDICARE, OTHER, SELFPAY ==
--- OUTSIDE RECORDS SUMMARY | 2025-01-25 09:33 | XMS_ITS | Encounter Summary ---
Author Organization [facility] Address [address] [place] [address] Phone Care Team Providers Care Senior Accounting Associate Name Role Phone Hi Calvert MD Primary Care Provider [phone] Reason for Visit * Reason Comments Med Refill Encounter Details Date Type Department Care Team (Late st Contact Info) Description 04/09/2024 Refill [facility] [address] [place] [phone] Bijan Cleary MD [address] [address] Social History Tobacco Use Types [...] Visit [facility] [address] [place] [address] Bijan Cleary MD [address] [address] documented as of this encounter Visit Diagnoses Not on filedocumented in this encounter Care Teams Senior Accounting Associate Relationship Specialty Start Date End Date Hi Calvert MD [address] [place] PCP - General 07/04/20 documented as of this encounter
--- OUTSIDE RECORDS SUMMARY | 2025-01-25 09:33 | XMS_ITS | Patient Health Record ---
Author Organization [facility] Address [address] [place] [address] Care Team Providers Care Bartender Name Role Phone Nehal (RETIRED) Hi COHN Primary Care Provide Dallin Magaña [phone] Allergies Allergen (clinical drug ingredient) Drug/Non Drug [...] due to Crohn's disease of small intestine (160484970328502 7) Crohn's disease of small intestine with intestinal obstruction (K50.012) Active confirmed Problem Benign neoplasm of stomach (13496622) Gastric polyps (K31.7) Active confirmed Problem Chronic gastritis (0118979) Gastritis, chronic (K29.50) Active confirmed Problem 414627148 Iron deficiency anemia due to chronic blood loss (D50.0) Active confirmed Problem 27418453 Iron deficiency anemia, unspecified iron deficiency anemia [...] Date MEDICARE OF [place] [address] [place] [address] [id number] NANCY ALFONSO Self - patient is the insured [facility] IN[facility] [address] [place] [address] [id number] NANCY ALFONSO Self - patient is the insured Medical (General) History Medical History History ICD Code Denies [place],CVA,Lung disease,renal disease IDDM Kidney stones Bladder stones [...]
--- NOTE | 2025-01-25 09:43 | A.OFFVIS_ITS ---
Intake Visit Reasons: INJ- right shoulder, last injection 04/09/24 Intake Note: Jamie couch a 79 year old male who presents today for a right shoulder injection, last injection 04/09/24. Patient reports injection provided him with relief, he is requesting to repeat injection. Allergies infliximab (From Remicade) Allergy (Severe, Verified 01/25/25 09:47) CHEST,ARM PAIN azathioprine (From Imuran) Allergy (Intermediate, Verified 01/25/25 09:47) LOWERED WBC'S Iodinated Contrast Media (IV Dye, Iodine Containing) Allergy (Intermediate, Verified 01/25/25 09:47) CHILLS,RASH,SWEATS alendronate sodium (From FOSAMAX) Allergy (Mild, Verified 01/25/25 09:47) HIVES amoxicillin (AMOXICILLIN) Allergy (Mild, Verified 01/25/25 09:47) HIVES ceftriaxone (From ROCEPHIN) Allergy (Mild, Verified 01/25/25 09:47) HIVES omeprazole (From PRILOSEC) Allergy (Mild, Verified 01/25/25 09:47) HIVES sulfamethoxazole (From Bactrim) Allergy (Mild, Verified 01/25/25 09:47) HIVES lansoprazole (Prevpac) Allergy (Unknown, Verified 01/25/25 09:47) Unknown penicillin V Allergy (Unknown, Verified 01/25/25 09:47) Unknown trimethoprim (From Bactrim) Allergy (Unknown, Verified 01/25/25 09:47) HIVES SURGICAL MESH Allergy (Unknown, Uncoded 01/25/25 09:47) Unknown HPI HPI INJ- right shoulder, last injection 04/09/24: Details: 79-year-old gentleman presents to the office today for follow-up right shoulder pain. He had his last injection in March of 2024. Was doing well up until recently when he went to reach and felt a pain in the right shoulder. Now he has pain with motion that bumps the shoulder around. [facility] Medical History (Updated 12/27/24 @ 09:38 by Amna Toth MD) Vitamin B 12 deficiency Epidermal cyst Enlarged prostate Elevated cholesterol Crohn disease Squamous cell cancer of lip Lesion of lip Calculus of kidney CAD (coronary artery disease) Gout Nephrolithiasis Diabetes mellitus Surgical History History of removal of cyst (~06/03/23) H/O squamous cell carcinoma excision (10/17/22) History of biopsy (09/25/22) History of esophagogastroduodenoscopy (EGD) H/O cystoscopy History of quadruple bypass (~10/2016) H/O thumb surgery H/O ileostomy Family History Father Colon cancer Mother No problems noted. Paternal Grandfather Cancer of unknown origin Social History Housing: House Patient Tobacco Use Status: Former Tobacco user service: No Current occupational status: retired Cognitive needs: No Hearing needs: No Vision needs: Yes (reading glasses) Review of Systems Const All systems reviewed & are unremarkable except as noted in HPI and below Physical Exam Extrem Other: Right shoulder: Normal to inspection. Tenderness over the bicipital groove and along the deltoid region of the shoulder. Forward flexion to 175, external rotation to 90, internal rotation to S1. 5/5 RTC strength. Positive Martinez and positive obriens. NVI. Office Procedures AMB Joint Injection/Aspiration Joint Injection/Aspiration Primary Site: right shoulder Prep: site was prepped using aseptic technique, ethochloride spray was applied and injection warnings given Injected: 80 mg of, DepoMedrol, with 8 mL of, 1% plain lidocaine and in the subcromial space Approach Used: posterolateral Coding 69479 - Glenohumeral/Tronchanteric Bursa/Intraarticular Procedure code (CPT) selection complete Assessment & Plan Assessment & Plan (1) Right rotator cuff tendonitis: Code(s): M75.81 - Other shoulder lesions, right shoulder Category: Medical Plan We discussed options today, which include steroid injection. The patient did consent to move forward with the right shoulder injection, which was tolerated well. I recommended rest, ice, and elevation and OTC anti-inflammatories as needed for discomfort. If symptoms persist or worsen over the next 6-8 weeks, patient will contact the office, otherwise follow-up as needed. Coding Level of Care Code Est Pt Level 3 (68573) Complex EM visit Add On G2211 Diagnoses Right rotator cuff tendonitis M75.81 CPT Codes Coding - Joint 7: 52700 - Glenohumeral/Tronchanteric Bursa/Intraarticular ([id number])
== END 2025-01-25 09:58 | disposition home or self-care (01) ==
LOC: HO.HOS 09:07
PROVIDERS: PCP Internal Medicine; Visit Provider Physician Assistant
DX: M75.81 Other shoulder lesions, right shoulder (principal)
CPT/HCPCS: 20610; 99213

== ENCOUNTER → 2025-01-25 09:06 | Outpatient (BNVA) | payer MEDICARE, OTHER, SELFPAY | PROVIDERS: PCP Internal Medicine; Visit Provider Physician Assistant | DX: M75.81 Other shoulder lesions, right shoulder (principal) | CPT/HCPCS: 20610; 99212; J1010; J2003 ==

== ENCOUNTER 2025-01-28 13:55 | Outpatient (AMB) | payer MEDICARE, OTHER, SELFPAY ==
--- NOTE | 2025-01-28 13:59 | MHC.PC.OV ---
Vital Signs 01/28/25 14:09 Height 5 ft 10 in Weight 174 lb BMI 25.0 BP 130/64 Blood Pressure Location Lt brachial Position Sitting Respiration 17 Pulse 69 Pulse Source Pulse Oximeter Temp 97.7 F Pulse Oximetry (%) 99 Oxygen Delivery Method Room Air Intake Visit Reasons: B12 Shot Regional Geodetic Advisor Required: No Accompanied by: Self / Same As Patient Allergies infliximab (From Remicade) Allergy (Severe, Verified 01/28/25 13:59) CHEST,ARM PAIN azathioprine (From Imuran) Allergy (Intermediate, Verified 01/28/25 13:59) LOWERED WBC'S Iodinated Contrast Media (IV Dye, Iodine Containing) Allergy (Intermediate, Verified 01/28/25 13:59) CHILLS,RASH,SWEATS alendronate sodium (From FOSAMAX) Allergy (Mild, Verified 01/28/25 13:59) HIVES amoxicillin (AMOXICILLIN) Allergy (Mild, Verified 01/28/25 13:59) HIVES ceftriaxone (From ROCEPHIN) Allergy (Mild, Verified 01/28/25 13:59) HIVES omeprazole (From PRILOSEC) Allergy (Mild, Verified 01/28/25 13:59) HIVES sulfamethoxazole (From Bactrim) Allergy (Mild, Verified 01/28/25 13:59) HIVES lansoprazole (Prevpac) Allergy (Unknown, Verified 01/28/25 13:59) Unknown penicillin V Allergy (Unknown, Verified 01/28/25 13:59) Unknown trimethoprim (From Bactrim) Allergy (Unknown, Verified 01/28/25 13:59) HIVES SURGICAL MESH Allergy (Unknown, Uncoded 01/25/25 09:47) Unknown Tobacco use date assessed: 09/28/24 Dental Screening Dental Screen Date: 09/28/24 HPI HPI Comments History of Present Illness Details The patient is a 79 year old male with b12 deficiency presenting for his monthly b12 injection Vitals reviewed. PHYSICAL EXAM: GENERAL: Alert and oriented x 3. NAD EYES: EOMI. Anicteric. SKIN: No rashes or lesions. Warm. NEUROLOGIC: No focal neurological deficits. CN II-XII grossly intact PSYCHIATRIC: Cooperative. Appropriate mood and affect [facility] Medical History (Updated 12/27/24 @ 09:38 by Amna Toth MD) Vitamin B 12 deficiency Epidermal cyst Enlarged prostate Elevated cholesterol Crohn disease Squamous cell cancer of lip Lesion of lip Calculus of kidney CAD (coronary artery disease) Gout Nephrolithiasis Diabetes mellitus Surgical History History of removal of cyst (~06/03/23) H/O squamous cell carcinoma excision (10/17/22) History of biopsy (09/25/22) History of esophagogastroduodenoscopy (EGD) H/O cystoscopy History of quadruple bypass (~10/2016) H/O thumb surgery H/O ileostomy Family History Father Colon cancer Mother No problems noted. Paternal Grandfather Cancer of unknown origin Social History Housing: House Patient Tobacco Use Status: Former Tobacco user e-Cigarette/Vaping Use: Never Used service: No Current occupational status: retired Cognitive needs: No Hearing needs: No Vision needs: Yes (reading glasses) Questionnaire Thrive Questionnaire Date Thrive assessed: 09/28/24 INEZ-7 AMB Questionnaire INEZ-7 Date INEZ - 7 assessed: 09/28/24 Source: Developed by Drs. Dallin Hurtado, Latricia Mohan, Praveen Valdez and colleagues, with an educational el from [employer]. Physical exam (Primary Care) Vital Signs: Last Vital Signs Temp 97.7 F 01/28/25 14:09 Pulse 69 01/28/25 14:09 Resp 17 01/28/25 14:09 BP 130/64 01/28/25 14:09 Pulse Ox 99 01/28/25 14:09 Oxygen Delivery Method Room Air 01/28/25 14:09 BMI result Body Mass Index 25.0 Tobacco/Smoking Status: Tobacco use Status Tobacco use date assessed 09/28/24 01/28/25 14:00 Patient Tobacco Use Status Former Tobacco user 01/28/25 14:00 e-Cigarette/Vaping Use Never Used 01/28/25 14:00 Thrive Assessment: Date of Thrive Assessment Date Thrive assessed 09/28/24 01/28/25 14:00 Office Procedures Office Procedure Office Procedure Documentation Office Procedure Documentation: Left deltoid prepped with alcohol swab. 1ml b12 injected left deltoid without complication patient tolerated procedure well Office Meds cyanocobalamin (vitamin B-12) 1,000 mcg/mL injection solution Performing Provider: Amna Toth MD [place] [facility] [place] [place] Administered by: Amna Toth MD on 01/28/25 14:22 Dose Route Admin Location Dispensed Lot Number Expiration Date NDC Double End Production Grinder 1,000 mcg IM left deltoid 1 mL Total Dispensed Waste 1 mL 0 % Coding Level of Care Code Procedure Only Diagnoses Vitamin B 12 deficiency E53.8 Assessment & Plan Assessment & Plan (1) Vitamin B 12 deficiency: Code(s): E53.8 - Deficiency of other specified B group vitamins Category: Medical Plan b12 administered recent vertigo. patient is scheduling appt for cpe Orders: Orders AMB Vitamin B12 Injection Practice Supplied 01/28/25 E53.8 - Deficiency of other specified B group vitamins
--- OUTSIDE RECORDS SUMMARY | 2025-01-28 14:03 | XMS_ITS | Patient Health Record ---
Author Organization [facility] Address [address] [place] [address] Care Team Providers Care Statistics Manager Name Role Phone Nehal (RETIRED) iH COHN Primary Care Provide Dallin Magaña [phone] Allergies Allergen (clinical drug ingredient) Drug/Non Drug [...] due to Crohn's disease of small intestine (910306625098765 7) Crohn's disease of small intestine with intestinal obstruction (K50.012) Active confirmed Problem Benign neoplasm of stomach (41633121) Gastric polyps (K31.7) Active confirmed Problem Chronic gastritis (7945521) Gastritis, chronic (K29.50) Active confirmed Problem 841153497 Iron deficiency anemia due to chronic blood loss (D50.0) Active confirmed Problem 14151482 Iron deficiency anemia, unspecified iron deficiency anemia [...] Date MEDICARE OF [place] [address] [place] [address] [id number] NANCY ALFONSO Self - patient is the insured [facility] INDEMNITY [address] [place] [address] [id number] NANCY ALFONSO Self - patient is the insured Medical (General) History Medical History History ICD Code Denies [place],CVA,Lung [...]
--- OUTSIDE RECORDS SUMMARY | 2025-01-28 14:03 | XMS_ITS | Encounter Summary ---
Author Organization [facility] Address [address] [place] [address] Phone Care Team Providers Care Chiropractic Teacher Name Role Phone Hi Calvert MD Primary Care Provider [phone] Reason for Visit * Reason Comments Med Refill Encounter Details Date Type Department Care Team (Late st Contact Info) Description 04/09/2024 Refill [facility] [address] [place] [phone] Bijan Cleary MD [address] [address] Social History Tobacco Use Types [...] Visit [facility] [address] [place] [address] Bijan Cleary MD [address] [address] documented as of this encounter Visit Diagnoses Not on filedocumented in this encounter Care Teams Chiropractic Teacher Relationship Specialty Start Date End Date Hi Calvert MD [address] [place] PCP - General 07/04/20 documented as of this encounter
--- OUTSIDE RECORDS SUMMARY | 2025-01-28 14:04 | XMS_ITS | Continuity of Care Document ---
Author Organization [facility] 2 [facility] [address] [place] [address] Phone [phone] Care Team Providers Care Rn Intern Name Role Phone Hi Calvert M.D. Care Team Information Receiv er [phone] Problems Active Problems Provider Date Type 2 [...] SIG Qnty Indications Order ing Provider Date Bbsdnlve2kb/0.5ML Solution Auto-Inject Inject 5 MG Subcutaneously Once A Week as Directed For 4 Weeks 2units E11.8 Valentin Helm M.D. 02/14/2024 N18.9 I25.10 Ikvpqphujv5wy Tablets 1 by mouth every day Valentin Helm M.D. 07/09/19 24 Ctposnm63of Tablets 1 by mouth every day 90tabs Valentin eHlm M.D. 11/24/19 23 Dhbspyw2xa Tablets 1 by mouth every day Valentin Helm M.D. 08/23/19 23 Vitamin Deficiency Injectable System-[id number]/ML Kit inject every month Valentin Aly M.D. 08/22/[address] 1 by mouth every day 90tabs Valentin Helm M.D. 04/17/20 22 Metoprolol Succinate ER25mg Tablets ER 24HR Take 1 Tablet By Mouth Every Day as Directed Hi Calvert M.D. Gxdnafuvazk736rz Tablets Take 2 Tablets By Mouth Every Day Unknown Potassium Citrate UP93Nzl (1080 mg) Tablets ER Take 1 Tablet By Mouth Twice A Day as Directed Unknown Atorvastatin Woiviyf81bm Tablets Take 1 Tablet By Mouth Everyday AT Bedtime Hi Calvert M.D. Pantoprazole Acnfao18nc Tablets DR Take 1 Tablet By Mouth Twice A Day Unknown Vital Signs Date Vital Result Comment 01/13/2025 1:40pm BP Systolic 120 mmHg BP Diastolic 80 mmHg Heart Rate 72 /min Height 70.5 inches 5'10.50 Weight 174.00 lb BMI (Body Mass Index) 24.6 kg/m2 Results Test Acquired Date Facility Test Result H/L Range N ote Glucose Fingerstick 01/13/2025 Inhouse Glucose Fingerstick 162 Hemoglobin A1c 01/13/2025 Inhouse Hemoglobin A1c 6.2% Hemoglobin A1c 08/12/2024 Inhouse Hemoglobin A1c 6.2% Glucose Fingerstick 08/12/2024 Inhouse Glucose Fingerstick 162 Hemoglobin A1c 04/29/2024 Inhouse Hemoglobin A1c 6.6% Glucose Fingerstick 04/29/2024 Inhouse Glucose Fingerstick 145 Hemoglobin A1c 01/22/2024 Inhouse Hemoglobin A1c 7.6% Glucose Fingerstick 01/22/2024 Inhouse Glucose Fingerstick 253 Hemoglobin A1c 10/16/2023 Inhouse Hemoglobin A1c 7.9% Glucose Fingerstick 10/16/2023 Inhouse Glucose Fingerstick 272 Hemoglobin A1c 07/09/2023 Inhouse Hemoglobin A1c 7.5% Glucose Fingerstick 07/09/2023 Inhouse Glucose Fingerstick 162 Hemoglobin A1c 03/08/2023 Inhouse Hemoglobin A1c 6.8% [...] Date Location Provider Dx Diagnosis Office Visit 01/13/2025 1:30p Main Office Valentin Helm M.D. E11.9 Type 2 diabetes mellitus without complications Assessments Date Code Description Provider 01/13/2025 E11.9 Type 2 diabetes mellitus without complications Valentin Helm M.D. Plan of Treatment Future Appointment(s):* 06/02/2025 1:15 pm - Valentin Helm M.D. at Main Office 01/13/2025 - Valentin Helm M.D.* E11.9 Type 2 diabetes mellitus without complications Functional Status Description No Information Available Mental Status Description No Information Available Referrals Description No Information Available
[2025-01-28 14:09] VITALS: BP 130/64; PULSE 69; RESP 17; TEMP 36.5; O2SAT 99; BMI 25.0
== END 2025-01-28 14:40 | disposition home or self-care (01) ==
LOC: HO.HMCHD 13:55
PROVIDERS: PCP Internal Medicine; Visit Provider Internal Medicine
DX: E53.8 Deficiency of other specified B group vitamins (principal)

== ENCOUNTER → 2025-01-28 13:55 | Outpatient (BNVA) | payer MEDICARE, OTHER, SELFPAY | PROVIDERS: PCP Internal Medicine; Visit Provider Internal Medicine | DX: E53.8 Deficiency of other specified B group vitamins (principal) | CPT/HCPCS: 96372; J3420 ==

== ENCOUNTER 2025-03-11 13:50 | Outpatient (AMB) | payer MEDICARE, OTHER, SELFPAY ==
--- NOTE | 2025-03-11 14:24 | A.OFFPC_ITS ---
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 Pastry Required: No Accompanied by: Self / Same As Patient Allergies infliximab (From Remicade) Allergy (Severe, Verified 03/11/25 14:25) CHEST,ARM PAIN azathioprine (From Imuran) Allergy (Intermediate, Verified 03/11/25 14:25) LOWERED WBC'S Iodinated Contrast Media (IV Dye, Iodine Containing) Allergy (Intermediate, Verified 03/11/25 14:25) CHILLS,RASH,SWEATS alendronate sodium (From FOSAMAX) Allergy (Mild, Verified 03/11/25 14:25) HIVES amoxicillin (AMOXICILLIN) Allergy (Mild, Verified 03/11/25 14:25) HIVES ceftriaxone (From ROCEPHIN) Allergy (Mild, Verified 03/11/25 14:25) HIVES omeprazole (From PRILOSEC) Allergy (Mild, Verified 03/11/25 14:25) HIVES sulfamethoxazole (From Bactrim) Allergy (Mild, Verified 03/11/25 14:25) HIVES lansoprazole (Prevpac) Allergy (Unknown, Verified 03/11/25 14:25) Unknown penicillin V Allergy (Unknown, Verified 03/11/25 14:25) Unknown trimethoprim (From Bactrim) Allergy (Unknown, Verified 03/11/25 14:25) HIVES SURGICAL MESH Allergy (Unknown, Uncoded 01/25/25 09:47) Unknown Medication List - Last Reconciled 03/11/25 by Lauri Carvajal MD allopurinol 200 mg PO DAILY aspirin 81 mg PO DAILY atorvastatin 80 mg PO BEDTIME dapagliflozin propanediol (Farxiga) 10 mg PO DAILY econazole nitrate 1% appl topical finasteride 5 mg PO DAILY 90 days lisinopril 5 mg PO DAILY metoprolol succinate ER 25 mg PO DAILY multivitamin 1 tab PO DAILY pantoprazole 40 mg PO BID potassium citrate ER 10 mEq PO BID tirzepatide (Mounjaro) 10 mg subcut Tobacco use date assessed: 09/28/24 Fall risk assessment: No Falls in past year Last assessed Fall Risk: 03/11/25 Dental Screening Dental Screen Date: 03/11/25 Did you have a dental visit in the last 12 months?: Yes Did you have a dental problem in the last 6 months where you did not have access to dental care?: No Was dental information given to patient?: Patient has dentist HPI HPI Comments History of Present Illness Details The patient is a 79-year-old male presenting for an annual wellness visit and to evaluate the need for continued Vitamin B12 supplementation. He has a history of Vitamin B12 deficiency due to a significant intestinal resection approximately 30 years ago, where 13 feet of the intestine were removed, affecting his absorption of fat-soluble vitamins. Originally, Vitamin B12 injections were initiated by Dr. Yi to manage low levels, and the patient has been receiving these injections monthly. Recent blood work from June 2023 indicated that his Vitamin B12 levels were adequate. Additionally, the patient has a history of hyperlipidemia, with triglycerides recorded at 152, and is managed with atorvastatin 80 mg daily. He was previously admitted for a myocardial infarction and has coronary artery disease managed with aspirin and atorvastatin. He reports stable blood glucose levels, managed with Farxiga for both diabetes and heart health, and Mounjaro injections. The patient has a history of Crohn's Disease, treated in the past with corticosteroids including prednisone, which contributed to episodes of psychosis with irritability and potentially compromising his bone density. No recent exacerbations of Crohn's have been noted; however, he experiences occasional small bowel obstructions. He quit smoking in 1981. 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 The patient manages osteoarthritic shoulder pain with activity, but experiences limitations and discomfort from this condition. He remains active, playing golf regularly. Past surgical history includes ileal resection and permanent ileostomy creation due to Crohn's Disease complications. Medical History: - Vitamin B12 Deficiency - Hyperlipidemia - Coronary Artery Disease with history o f myocardial infarction - Type 2 Diabetes Mellitus - Crohn's Disease - Hypertension - Benign Prostatic Hyperplasia - Gastroesophageal Reflux Disease - Gout - Osteopenia Surgical History: - 13 feet of intestinal resection and il eostomy creation Medications: - Allopurinol for gout - Aspirin 81 mg for coronary artery dise ase prevention - Atorvastatin 80 mg for hyperlipidemia - Farxiga for diabetes and heart health - Finasteride for benign prostatic hyper plasia - Lisinopril for hypertension - Metoprolol succinate 25 mg for hyperte nsion and heart health - Pantoprazole 40 mg twice daily for gas troesophageal reflux disease - Mounjaro 10 mg for diabetes management Diagnostic Results: - Labs: Previous Vitamin B12 test dated June 2023 showing adequate levels - Labs: Triglycerides at 152 mg/dL in 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 - Active lifestyle including regular gol f - Experienced dizziness with rapid movem ents, especially when bending over - Exposed to hay fever and seasonal shantal rgies - Persistent contralateral shoulder pain due to arthritis [facility] Medical History (Updated 03/11/25 @ 14:56 by Lauri Carvajal MD) Hypertension Use of steroids Hyperlipidemia Vitamin B 12 deficiency Epidermal cyst Enlarged prostate Elevated cholesterol Crohn disease Squamous cell cancer of lip Lesion of lip Calculus of kidney CAD (coronary artery disease) Gout Nephrolithiasis Diabetes mellitus Surgical History History of removal of cyst (~06/03/23) H/O squamous cell carcinoma excision (10/17/22) History of biopsy (09/25/22) History of esophagogastroduodenoscopy (EGD) H/O cystoscopy History of quadruple bypass (~10/2016) H/O thumb surgery H/O ileostomy Family History Father Colon cancer Mother No problems noted. Paternal Grandfather Cancer of unknown origin Social History Housing: House Patient Tobacco Use Status: Former Tobacco user Years Smoked: 20 years-quit 1981 e-Cigarette/Vaping Use: Never Used service: No Current occupational status: retired Cognitive needs: No Hearing needs: No Vision needs: Yes (reading glasses) Questionnaire Thrive Questionnaire Date Thrive assessed: 09/28/24 INEZ-7 AMB Questionnaire INEZ-7 Date INEZ - 7 assessed: 09/28/24 Source: Developed by Drs. Dallin Hurtado, Latricia Mohan, Praveen Valdez and colleagues, with an educational el from [employer]. Review of Systems Const Details: - Neurological: Reports dizziness with rapid bending - Musculoskeletal: Reports arthritis in shoulders - Cardiovascular: Denies recent myocardial infarction; reports previous incidence - Gastrointestinal: Denies recent reflux symptoms, reports frequent hospitalizations due to past small bowel obstructions - Respiratory: Denies smoking since 1981 All systems reviewed & are unremarkable except as reviewed in HPI and above Physical exam (Primary Care) Vital Signs: Last Vital Signs Temp 98.1 F 03/11/25 14:25 Pulse 72 03/11/25 14:25 Resp 18 03/11/25 14:25 BP 118/72 03/11/25 14:25 Pulse Ox 97 03/11/25 14:25 Oxygen Delivery Method Room Air 03/11/25 14:25 BMI result Body Mass Index 25.3 Tobacco/Smoking Status: Tobacco use Status Tobacco use date assessed 09/28/24 03/11/25 14:27 Patient Tobacco Use Status Former Tobacco user 03/11/25 14:27 e-Cigarette/Vaping Use Never Used 03/11/25 14:27 Thrive Assessment: Date of Thrive Assessment Date Thrive assessed 09/28/24 03/11/25 14:27 Const Other: General: Alert and oriented, Well nourished, No acute distress. Eye: Pupils are equal, round and reactive to light, Intact accommodation, Extraocular movements are intact, Normal conjunctiva, Vision unchanged. HENT: Normocephalic, Atraumatic, Tympanic membranes are clear, Normal hearing, Oral mucosa is moist, No pharyngeal erythema, Ear canals patent. Respiratory: Lungs CTA bilaterally, No wheeze, Respirations are non-labored. Cardiovascular: Regular rate, Regular rhythm, S1 auscultated, S2 auscultated, No murmur, Good pulses equal in all extremities, Normal peripheral perfusion, No edema. Gastrointestinal: Soft, Non-tender, Non-distended, Normal bowel sounds, No organomegaly. Patient has an ileostomy. Musculoskeletal: Normal range of motion, Normal strength, No tenderness, No swelling, No deformity, Normal gait. Reports impingement and arthritis in the shoulder. Integumentary: Warm, Dry, [place], Intact. Neurologic: Alert, Oriented, Normal sensory, Normal motor function, No focal defects, Cranial Nerves II-XII are grossly intact, Normal deep tendon reflexes. Advised to avoid rapid movements due to dizziness. Psychiatric: Cooperative, Appropriate mood & affect, Normal judgment. Reports history of short temper possibly related to past steroid use. Coding Level of Care Code Est Pt Level 4 (11783) Complex EM visit Add On G2211 Diagnoses Type 2 diabetes mellitus without complication, without long-term current use of insulin E11.9 Diabetes mellitus type: type 2 Diabetes mellitus custodial insulin use: without long term acute care registered nurse use Diabetes mellitus complication status: without complication Coronary artery disease, unspecified vessel or lesion type, unspecified whether angina present, unspecified whether [place] or transplanted heart I25.10 Coronary Disease-Associated Artery/Lesion type: unspecified vessel or lesion type [place] vs. transplanted heart: unspecified whether [place] or transplanted heart Associated angina: unspecified whether angina present Crohn's disease of large intestine with other complication K50.118 Gastrointestinal tract location: large intestine Digestive disease complication type: other complication Vitamin B 12 deficiency E53.8 Hyperlipidemia, unspecified hyperlipidemia type E78.5 Hyperlipidemia type: unspecified Use of steroids Z79.52 Hypertension, unspecified type I10 Hypertension type: unspecified Assessment & Plan Assessment & Plan (1) Diabetes mellitus: Comment: - Continue Farxiga and Mounjaro 10 mg. Plan for repeat HbA1c to assess diabetes control. - Continued follow up with Endocrinology Code(s): E11.9 - Type 2 diabetes mellitus without complications Category: Medical Qualifiers: Diabetes mellitus type: type 2 Diabetes mellitus long term acute care registered nurse insulin use: without long term acute care registered nurse use Diabetes mellitus complication status: without complication Qualified Code(s): E11.9 - Type 2 diabetes mellitus without complications (2) CAD (coronary artery disease): Comment: - Continue aspirin 81 mg and atorvastatin 80 mg daily. Monitor for new or worsening cardiovascular symptoms. Code(s): I25.10 - Atherosclerotic heart disease of [place] coronary artery without angina pectoris Category: Medical Qualifiers: Coronary Disease-Associated Artery/Lesion type: unspecified vessel or lesion type [place] vs. transplanted heart: unspecified whether [place] or transplanted heart Associated angina: unspecified whether angina present Qualified Code(s): I25.10 - Atherosclerotic heart disease of [place] coronary artery without angina pectoris (3) Crohn's disease: Comment: Status post ileostomy after having multiple SBO and flare-ups -ostomy supplies form filled Code(s): K50.90 - Crohn's disease, unspecified, without complications Category: Medical Qualifiers: Gastrointestinal tract location: large intestine Digestive disease complication type: other complication Qualified Code(s): K50.118 - Crohn's disease of large intestine with other complication (4) Vitamin B 12 deficiency: Comment: Has a history of B12 deficiency secondary to he has an ostomy. Given his colectomy he has been receiving monthly vitamin B12 shots. We will obtain a B12 level today before restarting shots. Code(s): E53.8 - Deficiency of other specified B group vitamins Category: Medical (5) Hyperlipidemia: Comment: Continue atorvastatin 80. Prior lipid panel evaluated and within normal limits Code(s): E78.5 - Hyperlipidemia, unspecified Category: Medical Qualifiers: Hyperlipidemia type: unspecified Qualified Code(s): E78.5 - Hyperlipidemia, unspecified (6) Use of steroids: Comment: Has a history of extensive steroid use in the past given his repetitive Crohn's flare ups and at 1 point also at 90 mg of prednisone We will obtain a DEXA scan to evaluate for osteoporosis or osteopenia Code(s): Z79.52 - jail (current) use of systemic steroids Category: Medical (7) Hypertension: Comment: - Continue allopurinol. Monitor uric acid levels and symptoms of gout. Code(s): I10 - Essential (primary) hypertension Category: Medical Qualifiers: Hypertension type: unspecified Qualified Code(s): I10 - Essential (rosalinda canelo) hypertension Plan: Health Maintenance: - Plan to repeat DEXA scan due to history of corticosteroid use. - Vitamin B12 level testing to adjust supplementation needs. - Blood pressure and diabetes monitoring, with future A1c testing. - Reinforce gradual positional changes to prevent dizziness. Patient was informed and verbally consented to the use of an ambient scribe for clinic note documentation during this visit. Plan During the consultation, I discussed the patient's adequate Vitamin B12 levels based on recent lab work and decided to defer today's injection until a new level is checked to avoid excessive supplementation. I confirmed medication regimens for his chronic conditions, including coronary artery disease, hypertension, and diabetes, and ensured the continuation of these therapies. We agreed to reassess his anemia and potential osteoporosis, considering a history of prolonged steroid use. I also advised on safe rapid movement adjustments to mitigate dizziness. We plan to continue monitoring and appropriate screening and discussed his medication management strategy with follow-up as needed. Orders: Orders XR DEXA axial skeleton Today Z79.52 - jail (current) use of systemic steroids Hemoglobin A1c Today E11.9 - Type 2 diabetes mellitus without complications, E53.8 - Deficiency of other specified B group vitamins Vitamin B12 and Folate Today E11.9 - Type 2 diabetes mellitus without complications, E53.8 - Deficiency of other specified B group vitamins Patient Instructions: - Follow up in one month for blood work results and Vitamin B12 assessment. - Continue all current medications as prescribed. - Move slowly when bending over to prevent dizziness. - Schedule a DEXA scan and repeat HbA1c for diabetes management. - Notify medical office if experiencing unusual symptoms or health changes.
[2025-03-11 14:25] VITALS: BP 118/72; PULSE 72; RESP 18; TEMP 36.7; O2SAT 97; BMI 25.3
--- OUTSIDE RECORDS SUMMARY | 2025-03-11 15:52 | XMS_ITS | Clinical Summary ---
Author Organization [facility] Facility Address [address] [place] [address] Care Team Providers Care [employer] Lieutenant Name Role Phone Hi Calvert MD Primary Care Provider [phone] Allergies Active Allergy Reactions Criticality Noted Date Comments Amoxicillin Other (see comments) 08/22/2020 Bacitracin Other (see comments) 08/22/2020 Infliximab Other (see comments) 08/22/2020 Penicillin G Other (see comments) 11/26/2021 Ceftriaxone Other (see comments) 08/22/2020 Sulfa Antibiotics Other (see comments) 08/23/19 Sulfamethoxazole-Trimethoprim Other (see comments) 08/22/2020 Medications Multiple Vitamins-[place] als (MULTIVITAMIN ADULTS 50+ PO) Take 1 [...] Visit [facility] [address] [place] [address] Bijan Cleary MD [address] [facility] [address] [place] [address] Health Maintenance Due Date Last Done Comments Diabetes: Ophthalmology Exam 08/22/2020 Diabetes: Pedal Pulse Checked 08/22/2020 Diabetes: Sensory Foot Exam 08/22/2020 Diabetes: Visual Foot Exam 08/22/2020 Diabetes: Hemoglobin A1C 07/11/2022 022, 10/25/2021 Influenza Vaccine (#1) 2025 , 04/06/2014, 04/06/2014 Pneumococcal Vaccine: 50+ Years Completed [...] Recently Relevant to Health Maintenance Insurance Medicare [facility] Medicare Unicare Care Teams [employer] Lieutenant Relationship Specialty Start Date End Date Hi Calvert MD [address] [place] PCP - General 07/04/20
--- OUTSIDE RECORDS SUMMARY | 2025-03-11 15:52 | XMS_ITS | Encounter Summary ---
Author Organization [facility] Address [address] [place] [address] Phone Care Team Providers Care Beverage Inspection Machine Tender Name Role Phone Hi Calvert MD Primary Care Provider [phone] Reason for Visit * Reason Comments Med Refill Encounter Details Date Type Department Care Team (Late st Contact Info) Description 04/09/2024 Refill [facility] [address] [place] [id number] Bijan Cleary MD [address] [address] Social History Tobacco Use Types [...] Visit [facility] [address] [place] [address] Bijan Cleary MD [address] [address] documented as of this encounter Visit Diagnoses Not on filedocumented in this encounter Care Teams Beverage Inspection Machine Tender Relationship Specialty Start Date End Date Hi Calvert MD [address] [place] PCP - General 07/04/20 documented as of this encounter
== END 2025-03-11 14:57 | disposition home or self-care (01) ==
LOC: HO.HMCHD 13:50
PROVIDERS: PCP Student in an Organized Health Care Education/Training Program; Visit Provider Student in an Organized Health Care Education/Training Program
DX: E11.9 Type 2 diabetes mellitus without complications (principal); I25.10 Atherosclerotic heart disease of native coronary artery without angina pectoris; K50.118 Crohn's disease of large intestine with other complication; E53.8 Deficiency of other specified B group vitamins; E78.5 Hyperlipidemia, unspecified; Z79.52 Long term (current) use of systemic steroids; I10 Essential (primary) hypertension

== ENCOUNTER 2025-03-11 13:50 | Outpatient (REF) | payer MEDICARE, OTHER, SELFPAY ==
--- OUTSIDE RECORDS SUMMARY | 2025-03-11 16:39 | XMS_ITS | Continuity of Care Document ---
Author Organization [facility] [address] [facility] [address] [place] [address] Phone [phone] Care Team Providers Care Ingredient Handler Name Role Phone Hi Calvert M.D. Care Team Information Receiv er [phone] Problems Active Problems Provider Date Type 2 [...] SIG Qnty Indications Order ing Provider Date Pdaixksy9rr/0.5ML Solution Auto-Inject Inject 5 MG Subcutaneously Once A Week as Directed For 4 Weeks 2units E11.8 Valentin Helm M.D. 02/14/2024 N18.9 I25.10 Ijobcnltxu9pu Tablets 1 by mouth every day Valentin Helm M.D. 07/09/19 24 Zwaadiz85rs Tablets 1 by mouth every day 90tabs Valentin Helm M.D. 11/24/19 23 Gyhecdv1ui Tablets 1 by mouth every day Valentin Helm M.D. 08/23/19 23 Vitamin Deficiency Injectable System-M700648ejz/ML Kit inject every month Valentin Aly M.D. 08/22/[address] 1 by mouth every day 90tabs Valentin Helm M.D. 04/17/20 22 Metoprolol Succinate ER25mg Tablets ER 24HR Take 1 Tablet By Mouth Every Day as Directed Hi Calvert M.D. Owtbeplqglc942ck Tablets Take 2 Tablets By Mouth Every Day Unknown Potassium Citrate DL17Vrj (1080 mg) Tablets ER Take 1 Tablet By Mouth Twice A Day as Directed Unknown Atorvastatin Blwtvkm66jl Tablets Take 1 Tablet By Mouth Everyday AT Bedtime Hi Calvert M.D. Pantoprazole Abkrjc28oq Tablets DR Take 1 Tablet By Mouth [...]
[2025-03-11 18:24] LABS: Folate 14.1 ng/mL (> or = 4.0); Vitamin B12 403 pg/mL (200-900)
== END 2025-03-11 13:51 | disposition home or self-care (01) ==
LOC: HO.LAB 13:50
PROVIDERS: PCP Student in an Organized Health Care Education/Training Program; Visit Provider Student in an Organized Health Care Education/Training Program
DX: E53.8 Deficiency of other specified B group vitamins (principal); E11.9 Type 2 diabetes mellitus without complications; I25.10 Atherosclerotic heart disease of native coronary artery without angina pectoris; K50.118 Crohn's disease of large intestine with other complication; E78.5 Hyperlipidemia, unspecified; I10 Essential (primary) hypertension; Z79.52 Long term (current) use of systemic steroids; Z87.891 Personal history of nicotine dependence
CPT/HCPCS: 36415; 82607; 82746; 83036; 99212

== ENCOUNTER 2025-03-19 10:20 | Outpatient (REF) | payer MEDICARE, OTHER, SELFPAY ==
--- NOTE | ~2025-03-19 | US_ITS ---
CLINICAL HISTORY: N20.0 - Calculus of kidney US renal with Color Doppler Comparison: US/SR - US KIDNEY BILATERAL - 02/07/24 12:37 EDT US/SR - US KIDNEY BILATERAL - 01/22/23 12:56 EDT US/SR - US KIDNEY BILATERAL - 04/13/22 10:30 EDT Findings: Right kidney normal size and echotexture, 11.9 cm length. No hydronephrosis. No nephrolithiasis. Normal color flow. Renal cortical cysts midpole measuring 1.0 x 0.6 x 0.6 cm and 1.1 x 0.6 x 0.8 cm Left kidney measures 8.7 cm length previously measuring 9.3 cm. Normal color flow. Lower pole cyst measuring 3.8 x 3.4 x 4.0 cm with internal septation. Complex appearing mass midpole measuring 3.0 x 2.6 x [address] or MRI correlation. Impression: 1. Indeterminate left renal mass. Dedicated CT or MRI with and without contrast renal mass protocol is recommended. 2. Bilateral renal cysts. This document has been electronically signed by: Johnathan Morelos MD on 03/20/2025 16:08:58
--- OUTSIDE RECORDS SUMMARY | 2025-03-19 11:42 | XMS_ITS | Patient Health Record ---
Author Organization [facility] Address [address] [place] [address] Care Team Providers Care Pattern Data Operator Name Role Phone Nehal (RETIRED) Hi COHN Primary Care Provide Dallin Magaña [phone] Allergies Allergen (clinical drug ingredient) Drug/Non Drug [...] due to Crohn's disease of small intestine ([id number] 7) Crohn's disease of small intestine with intestinal obstruction (K50.012) Active confirmed Problem Benign neoplasm of stomach (10711968) Gastric polyps (K31.7) Active confirmed Problem Chronic gastritis (3959781) Gastritis, chronic (K29.50) Active confirmed Problem 922436452 Iron deficiency anemia due to chronic blood loss (D50.0) Active confirmed Problem 28196652 Iron deficiency anemia, unspecified iron deficiency anemia [...] Date MEDICARE OF [place] [address] [place] [address] [id number] NANCY ALFONSO Self - patient is the insured [employer] [address] [place] [address] [id number] NANCY ALFONSO Self - patient is the insured Medical (General) History Medical History History ICD Code Denies PR,CVA,Lung disease,renal disease IDDM Kidney stones Bladder stones [...]
--- OUTSIDE RECORDS SUMMARY | 2025-03-19 11:42 | XMS_ITS | Clinical Summary ---
Author Organization [facility] Facility Address [address] [place] [id number] Care Team Providers Care Shoulder Pad Molder Name Role Phone Hi Calvert MD Primary Care Provider [phone] Allergies Active Allergy Reactions Criticality Noted Date Comments Amoxicillin Other (see comments) 08/22/2020 Bacitracin Other (see comments) 08/22/2020 Infliximab Other (see comments) 08/22/2020 Penicillin G Other (see comments) 11/26/2021 Ceftriaxone Other (see comments) 08/22/2020 Sulfa Antibiotics Other (see comments) 08/23/19 Sulfamethoxazole-Trimethoprim Other (see comments) 08/22/2020 Medications Multiple Vitamins-[place] als (MULTIVITAMIN ADULTS 50+ PO) Take 1 [...] Visit [facility] [address] [place] [address] Bijan Cleary MD [address] [facility] [address] [place] [address] Health Maintenance Due Date Last [...] Recently Relevant to Health Maintenance Insurance Medicare Counts Include [facility] Medicare Unicare Care Teams Shoulder Pad Molder Relationship Specialty Start Date End Date Hi Calvert MD [address] [place] PCP - General 07/04/20
--- OUTSIDE RECORDS SUMMARY | 2025-03-19 11:42 | XMS_ITS | Encounter Summary ---
Author Organization [facility] Address [address] [place] [address] Phone Care Team Providers Care Share Holder Name Role Phone Hi Calvert MD Primary Care Provider [phone] Reason for Visit * Reason Comments Med Refill Encounter Details Date Type Department Care Team (Late st Contact Info) Description 04/09/2024 Refill [facility] [address] [place] [phone] Bijan Cleary MD [address] [address] Social History Tobacco Use Types [...] Visit [facility] [address] [place] [address] Bijan Cleary MD [address] [address] documented as of this encounter Visit Diagnoses Not on filedocumented in this encounter Care Teams Share Holder Relationship Specialty Start Date End Date Hi Calvert MD [address] [place] PCP - General 07/04/20 documented as of this encounter
== END 2025-03-19 10:21 | disposition home or self-care (01) ==
LOC: HO.US 10:20
PROVIDERS: PCP Internal Medicine; Visit Provider Urology
DX: N20.0 Calculus of kidney (principal)
CPT/HCPCS: 76775

== ENCOUNTER 2025-03-24 09:22 | Outpatient (AMB) | payer MEDICARE, OTHER, SELFPAY ==
--- NOTE | 2025-03-24 09:38 | MHC.OFFVIS ---
Intake Visit Reasons: ov- RT shoulder pain Intake Note: Jamie is a 79 year old right hand dominant male who presents today for a follow up of right shoulder pain, last injection 01/25/25. Patient reports injections provided him with relief, however he continues to have discomfort in his shoulder. States experiencing sharp pain at times with certain movement of shoulder. He states his left shoulder is well, he uses Tylenol Arthritis with good relief. Allergies infliximab (From Remicade) Allergy (Severe, Verified 03/24/25 09:47) CHEST,ARM PAIN azathioprine (From Imuran) Allergy (Intermediate, Verified 03/24/25 09:47) LOWERED WBC'S Iodinated Contrast Media (IV Dye, Iodine Containing) Allergy (Intermediate, Verified 03/24/25 09:47) CHILLS,RASH,SWEATS alendronate sodium (From FOSAMAX) Allergy (Mild, Verified 03/24/25 09:47) HIVES amoxicillin (AMOXICILLIN) Allergy (Mild, Verified 03/24/25 09:47) HIVES ceftriaxone (From ROCEPHIN) Allergy (Mild, Verified 03/24/25 09:47) HIVES omeprazole (From PRILOSEC) Allergy (Mild, Verified 03/24/25 09:47) HIVES sulfamethoxazole (From Bactrim) Allergy (Mild, Verified 03/24/25 09:47) HIVES lansoprazole (Prevpac) Allergy (Unknown, Verified 03/24/25 09:47) Unknown penicillin V Allergy (Unknown, Verified 03/24/25 09:47) Unknown trimethoprim (From Bactrim) Allergy (Unknown, Verified 03/24/25 09:47) HIVES SURGICAL MESH Allergy (Unknown, Uncoded 03/24/25 09:47) Unknown HPI HPI ov- RT shoulder pain: Details: 79-year-old gentleman returns to the office today for follow-up right shoulder pain. I saw him back in January and gave him a cortisone injection due to shoulder pain. The shoulder has been aggravating him since an injury he sustained with a garage door. He states the injection did help with mild discomfort however there are certain positions he puts his arm in that cause pain. [facility] Medical History (Updated 03/11/25 @ 14:56 by Lauri Carvajal MD) Hypertension Use of steroids Hyperlipidemia Vitamin B 12 deficiency Epidermal cyst Enlarged prostate Elevated cholesterol Crohn disease Squamous cell cancer of lip Lesion of lip Calculus of kidney CAD (coronary artery disease) Gout Nephrolithiasis Diabetes mellitus Surgical History History of removal of cyst (~06/03/23) H/O squamous cell carcinoma excision (10/17/22) History of biopsy (09/25/22) History of esophagogastroduodenoscopy (EGD) H/O cystoscopy History of quadruple bypass (~10/2016) H/O thumb surgery H/O ileostomy Family History Father Colon cancer Mother No problems noted. Paternal Grandfather Cancer of unknown origin Social History Housing: House Patient Tobacco Use Status: Former Tobacco user Years Smoked: 20 years-quit 1982 e-Cigarette/Vaping Use: Never Used service: No Current occupational status: retired Cognitive needs: No Hearing needs: No Vision needs: Yes (reading glasses) Review of Systems Const All systems reviewed & are unremarkable except as noted in HPI and below Physical Exam Extrem Other: Right shoulder full range of motion in all planes. He has good activation of the rotator cuff muscles, positive Kinnear's. Assessment & Plan Assessment & Plan (1) Right rotator cuff tendonitis: Code(s): M75.81 - Other shoulder lesions, right shoulder Category: Medical Plan: We discussed options today which includes an MRI of the right shoulder which has been ordered to further evaluate the integrity of the rotator cuff and surrounding structures. Once the scan is complete I can contact the patient to discuss the next step in his treatment options. The patient is content with this plan. Coding Level of Care Code Est Pt Level 3 (80030) Complex EM visit Add On G2211 Diagnoses Right rotator cuff tendonitis M75.81
--- OUTSIDE RECORDS SUMMARY | 2025-03-24 10:13 | XMS_ITS | Patient Health Record ---
Author Organization [facility] Address [address] [place] [address] Care Team Providers Care City Detective Name Role Phone Nehal (RETIRED) Hi COHN Primary Care Provide Dallin Magaña [phone] Allergies Allergen (clinical drug ingredient) Drug/Non Drug [...] due to Crohn's disease of small intestine ([id number] 7) Crohn's disease of small intestine with intestinal obstruction (K50.012) Active confirmed Problem Benign neoplasm of stomach (17583128) Gastric polyps (K31.7) Active confirmed Problem Chronic gastritis (1389107) Gastritis, chronic (K29.50) Active confirmed Problem [id number] Iron deficiency anemia due to chronic blood loss (D50.0) Active confirmed Problem [id number] Iron deficiency anemia, unspecified iron deficiency anemia [...] Date MEDICARE OF [place] [address] [place] [address] [id number] NANCY ALFONSO Self - patient is the insured [facility] [employer] [address] [place] [address] [id number] NANCY ALFONSO Self - patient is the insured Medical (General) History Medical History History ICD Code Denies CA,CVA,Lung disease,renal disease IDDM Kidney stones Bladder stones [...]
--- OUTSIDE RECORDS SUMMARY | 2025-03-24 10:13 | XMS_ITS | Clinical Summary ---
Author Organization [facility] Facility Address [address] [place] [address] Care Team Providers Care Wet Cotton Feeder Name Role Phone Hi Calvert MD Primary Care Provider [phone] Allergies Active Allergy Reactions Criticality Noted Date Comments Amoxicillin Other (see comments) 08/22/2020 Bacitracin Other (see comments) 08/22/2020 Infliximab Other (see comments) 08/22/2020 Penicillin G Other (see comments) 11/26/2021 Ceftriaxone Other (see comments) 08/22/2020 Sulfa Antibiotics Other (see comments) 08/23/19 Sulfamethoxazole-Trimethoprim Other (see comments) 08/22/2020 Medications Multiple Vitamins-[place] als (MULTIVITAMIN ADULTS 50+ PO) Take 1 [...] Visit [facility] [address] [place] [address] Bijan Cleary MD [address] [facility] [address] [place] [address] Health Maintenance Due Date Last [...] to Health Maintenance Insurance Medicare [facility] Medicare Unicare Care Teams Wet Cotton Feeder Relationship Specialty Start Date End Date Hi Calvert MD [address] [place] PCP - General 07/04/20
--- OUTSIDE RECORDS SUMMARY | 2025-03-24 10:13 | XMS_ITS | Continuity of Care Document ---
Author Organization [facility] [address] [facility] [address] [place] [address] Phone [phone] Care Team Providers Care Farm Appraiser Name Role Phone Hi Calvert M.D. Care Team Information Receiv er [phone] Problems Active Problems Provider Date Type 2 [...] SIG Qnty Indications Order ing Provider Date Cgqsmyyp9wd/0.5ML Solution Auto-Inject Inject 5 MG Subcutaneously Once A Week as Directed For 4 Weeks 2units E11.8 Valentin Helm M.D. 02/14/2024 N18.9 I25.10 Bksazaunib4xl Tablets 1 by mouth every day Valentin Helm M.D. 07/09/19 24 Kuznmul41iw Tablets 1 by mouth every day 90tabs Valentin eHlm M.D. 11/24/19 23 Yvmxciw5kd Tablets 1 by mouth every day Valentin Helm M.D. 08/23/19 23 Vitamin Deficiency Injectable System-S474728ayg/ML Kit inject every month Valentin Aly M.D. 08/22/[address] 1 by mouth every day 90tabs Valentin Helm M.D. 04/17/20 22 Metoprolol Succinate ER25mg Tablets ER 24HR Take 1 Tablet By Mouth Every Day as Directed Hi Calvert M.D. Pjyjvagdwlm763tk Tablets Take 2 Tablets By Mouth Every Day Unknown Potassium Citrate JB57Djj (1080 mg) Tablets ER Take 1 Tablet By Mouth Twice A Day as Directed Unknown Atorvastatin Abeequy60pu Tablets Take 1 Tablet By Mouth Everyday AT Bedtime Hi Calvert M.D. Pantoprazole Wkjuxx78fr Tablets DR Take 1 Tablet By Mouth [...]
--- OUTSIDE RECORDS SUMMARY | 2025-03-24 10:13 | XMS_ITS | Encounter Summary ---
Author Organization [facility] Address [address] [place] [address] Phone Care Team Providers Care Supervisor [employer] Name Role Phone Hi Calvert MD Primary Care Provider [phone] Reason for Visit * Reason Comments Med Refill Encounter Details Date Type Department Care Team (Late st Contact Info) Description 04/09/2024 Refill [facility] [address] [place] [phone] Bijan Cleary MD [address] [address] Social History Tobacco Use Types [...] Visit [facility] [address] [place] [address] Bijan Cleary MD [address] [address] documented as of this encounter Visit Diagnoses Not on filedocumented in this encounter Care Teams Supervisor [employer] Relationship Specialty Start Date End Date Hi Calvert MD [address] [place] PCP - General 07/04/20 documented as of this encounter
== END 2025-03-24 09:52 | disposition home or self-care (01) ==
PROVIDERS: PCP Internal Medicine; Visit Provider Physician Assistant
DX: M75.81 Other shoulder lesions, right shoulder (principal)
CPT/HCPCS: 99213; G2211

== ENCOUNTER → 2025-03-24 09:22 | Outpatient (BNVA) | payer MEDICARE, OTHER, SELFPAY | PROVIDERS: PCP Internal Medicine; Visit Provider Physician Assistant | DX: M75.81 Other shoulder lesions, right shoulder (principal) | CPT/HCPCS: 99212 ==

== ENCOUNTER 2025-04-02 10:23 | Outpatient (REF) | payer MEDICARE, OTHER, SELFPAY ==
--- NOTE | ~2025-04-02 | MM_ITS ---
EXAMINATION: DXA BONE DENSITY AXIAL HISTORY: Z79.52 - [facility] (current) use of systemic steroids TECHNIQUE: [facility] Dual energy absorptiometry (DEXA) of the lumbar spine, total left hip, and femoral neck was performed. COMPARISON: Comparison is made with the prior examination dated 11/17/2013. FINDINGS: The bone mineral density of the lumbar spine is 1.067 g/cm2, corresponding to a T-score of 3.2, and a Z-score of 3.9. This is indicative of normal bone mineral density. This represents a BMD change of 8.4% compared to the prior exam. This is statistically significant. The bone mineral density of the left total hip is 0.851 g/cm2, corresponding to a T-score of -1.7, and a Z-score of -0.7. This is indicative of osteopenia. This represents a BMD change of -16.2% compared to the prior exam. This is statistically significant. The bone mineral density of the left femoral neck is 0.823 g/cm2, corresponding to a T-score of -1.9, and a Z-score of -0.4. This is indicative of osteopenia. This represents a BMD change of -1.3% compared to the prior exam. FRACTURE RISK: The FRAX index suggests a ten year probability of major osteoporotic fracture of 17.6%, and of hip fracture 6.9%. MM/XR DEXA axial skeleton IMPRESSION: Based on bone mineral density, and according to World Health Organization (WHO) criteria, the diagnosis is consistent with osteopenia. Statistically, 68% of repeat scans fall within 1 SD (+/- 0.010 g/cm2 for AP spine L1-L4) and 1 SD (+/- 0.012 g/cm2 for femur total) FRAX is a trademark of the [employer] Metabolic Bone Disease, a World Health Organization (WHO) Collaborating Center. Electronically signed by: Dallin Etienne MD 04/02/2025 11:05 AM EDT
== END 2025-04-02 10:24 | disposition home or self-care (01) ==
LOC: HO.MAMMO 10:23
PROVIDERS: PCP Student in an Organized Health Care Education/Training Program; Visit Provider Student in an Organized Health Care Education/Training Program
DX: Z13.820 Encounter for screening for osteoporosis (principal); M85.89 Other specified disorders of bone density and structure, multiple sites; Z79.52 Long term (current) use of systemic steroids
CPT/HCPCS: 77080

== ENCOUNTER → 2025-04-02 10:30 | Outpatient (BNV) | payer MEDICARE, OTHER, SELFPAY | PROVIDERS: PCP Student in an Organized Health Care Education/Training Program; Visit Provider Radiology Diagnostic Radiology | DX: Z79.52 Long term (current) use of systemic steroids (principal) | CPT/HCPCS: 77080 ==

== ENCOUNTER 2025-04-13 13:13 | Outpatient (AMB) | payer MEDICARE, OTHER, SELFPAY ==
[2025-04-13 13:17] VITALS: BP 120/76; PULSE 90; TEMP 36.6; O2SAT 99; BMI 25.3
--- NOTE | 2025-04-13 13:17 | MHC.PC.OV ---
Vital Signs 04/13/25 13:17 Height 5 ft 10 in Weight 176 lb BMI 25.3 BP 120/76 Blood Pressure Location Lt brachial Position Sitting Pulse 90 Pulse Source Pulse Oximeter Temp 97.9 F Temp Source Temporal Artery Scan Pulse Oximetry (%) 99 Oxygen Delivery Method Room Air Intake Visit Reasons: 1 month f/u-? b-12 inj Delivery And Mail Sorter Required: No Accompanied by: Self / Same As Patient Allergies infliximab (From Remicade) Allergy (Severe, Verified 04/13/25 13:18) CHEST,ARM PAIN azathioprine (From Imuran) Allergy (Intermediate, Verified 04/13/25 13:18) LOWERED WBC'S Iodinated Contrast Media (IV Dye, Iodine Containing) Allergy (Intermediate, Verified 04/13/25 13:18) CHILLS,RASH,SWEATS alendronate sodium (From FOSAMAX) Allergy (Mild, Verified 04/13/25 13:18) HIVES amoxicillin (AMOXICILLIN) Allergy (Mild, Verified 04/13/25 13:18) HIVES ceftriaxone (From ROCEPHIN) Allergy (Mild, Verified 04/13/25 13:18) HIVES omeprazole (From PRILOSEC) Allergy (Mild, Verified 04/13/25 13:18) HIVES sulfamethoxazole (From Bactrim) Allergy (Mild, Verified 04/13/25 13:18) HIVES lansoprazole (Prevpac) Allergy (Unknown, Verified 04/13/25 13:18) Unknown penicillin V Allergy (Unknown, Verified 04/13/25 13:18) Unknown trimethoprim (From Bactrim) Allergy (Unknown, Verified 04/13/25 13:18) HIVES SURGICAL MESH Allergy (Unknown, Uncoded 03/24/25 09:47) Unknown Medication List - Last Reconciled 04/13/25 by Lauri Carvajal MD allopurinol 200 mg PO DAILY aspirin 81 mg PO DAILY atorvastatin 80 mg PO BEDTIME cholecalciferol (vitamin D3) 25 mcg PO DAILY cyanocobalamin (vitamin B-12) 1,000 mcg PO DAILY 90 days dapagliflozin propanediol (Farxiga) 10 mg PO DAILY finasteride 5 mg PO DAILY 90 days lisinopril 5 mg PO DAILY metoprolol succinate ER 25 mg PO DAILY multivitamin 1 tab PO DAILY pantoprazole 40 mg PO BID tirzepatide (Mounjaro) 10 mg subcut Tobacco use date assessed: 04/13/25 Fall risk assessment: No Falls in past year Last assessed Fall Risk: 04/13/25 Dental Screening Dental Screen Date: 04/13/25 Did you have a dental visit in the last 12 months?: Yes Did you have a dental problem in the last 6 months where you did not have access to dental care?: No HPI HPI Comments History of Present Illness Details The patient is a 79-year-old male presenting with medication management concerns and a shoulder injury. The patient reports issues with the potassium citrate pills, which are not dissolving as prescribed and are being excreted intact due to his ostomy. This issue has been ongoing and was previously managed with a [id number]-[id number] powder form, which is no longer available. Additionally, the patient reports a shoulder injury sustained several months ago while assisting a neighbor with a heavy garage door. The pain is exacerbated by certain positions and interrupts sleep, having persisted despite conservative measures. The injury has been evaluated by orthopedics, and an MRI was ordered, though results are awaited. The patient also has a history of vitamin B12 deficiency, previously managed with injections. It was noted that his vitamin B12 levels are currently normal; therefore, the treatment plan includes transitioning to oral lozenges. His chronic conditions include Type 2 Diabetes Mellitus, managed with medication and lifestyle adjustments, and he reports stable glucose levels. The patient has heart disease, hyperlipidemia managed with atorvastatin, hypertension, and gout, managed with allopurinol. 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 - Has experienced significant weight loss after reducing time spent in the kitchen [facility] Medical History (Updated 04/13/25 @ 13:47 by Lauri Carvajal MD) Hypokalemia Hypertension Use of steroids Hyperlipidemia Vitamin B 12 deficiency Epidermal cyst Enlarged prostate Elevated cholesterol Crohn disease Squamous cell cancer of lip Lesion of lip Calculus of kidney CAD (coronary artery disease) Gout Nephrolithiasis Diabetes mellitus Surgical History History of colonoscopy (~11/23/14) History of removal of cyst (~06/03/23) H/O squamous cell carcinoma excision (10/17/22) History of biopsy (09/25/22) History of esophagogastroduodenoscopy (EGD) H/O cystoscopy History of quadruple bypass (~10/2016) H/O thumb surgery H/O ileostomy Family History Father Colon cancer Mother No problems noted. Paternal Grandfather Cancer of unknown origin Social History Housing: House Patient Tobacco Use Status: Former Tobacco user Years Smoked: 20 years-quit 1981 e-Cigarette/Vaping Use: Former Use service: No Current occupational status: retired Cognitive needs: No Hearing needs: No Vision needs: Yes (reading glasses) Questionnaire PHQ-9 Over the last 2 weeks, how often have you been bothered by any of the following problems? 1. Little interest or pleasure in doing things: not at all 2. Feeling down, depressed, or hopeless: not at all 3. Trouble falling or staying asleep, or sleeping too much: not at all 4. Feeling tired or having little energy: not at all 5. Poor appetite or overeating: not at all 6. Feeling bad about yourself - or that you are a failure or have let yourself or your family down: not at all 7. Trouble concentrating on things, such as reading the newspaper or watching television: not at all 8. Moving or speaking so slowly that other people could have noticed. Or the opposite - being so fidgety or restless that you have been moving around a lot more than usual: not at all 9. Thoughts that you would be better off or of hurting yourself in some way: not at all Total score: 0 Source: Developed by Drs. Dallin Hurtado, Latricia Mohan, Praveen Valdez and colleagues, with an educational el from [employer]. Thrive Questionnaire Date Thrive assessed: 04/13/25 I am a: Patient Within the past 12 months, did the food you bought not last and you didn't have the money to get more?: Never true Within the past 12 months, did you worry whether your food would run out before you got money to buy more?: Never true Do you have trouble paying for medicines?: No Do you have trouble getting transportation to medical appointments?: No Do you have trouble paying your heating and electricity bill?: No Do you have trouble taking care of your child, family member or friend?: No Do you have trouble with day-to-day activities such as bathing, preparing meals, shopping, managing finances, etc.?: No Are you currently unemployed and looking for a job?: No Are you interested in more education?: No THRIVE Score: 0 AUDIT C Alcohol Use Questionnaire (AUDIT-C) 1. How often do you have a drink containing alcohol?: Monthly or less 2. How many drinks containing alcohol do you have on a typical day when you are drinking?: 1 or 2 3. How often do you have six or more drinks on one occasion?: Less than monthly Total Score: 2 INEZ-7 AMB Questionnaire INEZ-7 Date INEZ - 7 assessed: 04/13/25 Feeling nervous, anxious, or on edge: 0 = Not at all Not being able to stop or control worryin = Not at all Worrying too much about different things: 0 = Not at all Trouble relaxin = Not at all Being so restless that it is hard to sit still: 0 = Not at all Becoming easily annoyed or irritable: 0 = Not at all Feeling afraid as if something awful might happen: 0 = Not at all Total INEZ-7 score (0-4 normal; 5-9 mild; 10-14 moderate; 15-21 severe): 0 Source: Developed by Drs. Dallin Hurtado, Latricia Mohan, Praveen Valdez and colleagues, with an educational el from [employer]. Review of Systems Narrative - Musculoskeletal: Reports shoulder pain exacerbated by position - Gastrointestinal: Reports potassium citrate pill passing intact - General: Denies current symptoms of weakness or general malaise All systems reviewed & are unremarkable except as reviewed in HPI and above Physical exam (Primary Care) Vital Signs: Last Vital Signs Temp 97.9 F 04/13/25 13:17 Pulse 90 04/13/25 13:17 BP 120/76 04/13/25 13:17 Pulse Ox 99 04/13/25 13:17 Oxygen Delivery Method Room Air 04/13/25 13:17 BMI result Body Mass Index 25.3 Tobacco/Smoking Status: Tobacco use Status Tobacco use date assessed 04/13/25 04/13/25 13:20 Patient Tobacco Use Status Former Tobacco user 04/13/25 13:20 e-Cigarette/Vaping Use Former Use 04/13/25 13:20 PHQ-9: PHQ-9 Score PHQ-9: Total score 0 04/13/25 13:37 Thrive Assessment: Date of Thrive Assessment Date Thrive assessed 04/13/25 04/13/25 13:20 Narrative General: Alert and oriented, Well nourished, No acute distress. Eye: Pupils are equal, round and reactive to light, Intact accommodation, Extraocular movements are intact, Normal conjunctiva, Vision unchanged. HENT: Normocephalic, Atraumatic, Tympanic membranes are clear, Normal hearing, Oral mucosa is moist, No pharyngeal erythema, Ear canals patent. Respiratory: Lungs CTA bilaterally, No wheeze, Respirations are non-labored. Cardiovascular: Regular rate, Regular rhythm, S1 auscultated, S2 auscultated, No murmur, Good pulses equal in all extremities, Normal peripheral perfusion, No edema. Gastrointestinal: Soft, Non-tender, Non-distended, Normal bowel sounds, No organomegaly. Musculoskeletal: Normal range of motion, Normal strength, No tenderness, No swelling, No deformity, Normal gait. Note: Patient reports shoulder pain, possibly due to recent injury, awaiting MRI results. Integumentary: Warm, Dry, [place], Intact. Neurologic: Alert, Oriented, Normal sensory, Normal motor function, No focal defects, Cranial Nerves II-XII are grossly intact, Normal deep tendon reflexes. Psychiatric: Cooperative, Appropriate mood & affect, Normal judgment. Coding Level of Care Code Est Pt Level 4 (09860) Complex EM visit Add On G2211 Diagnoses Hypertension, unspecified type I10 Hypertension type: unspecified Coronary artery disease, unspecified vessel or lesion type, unspecified whether angina present, unspecified whether [place] or transplanted heart I25.10 Associated angina: unspecified whether angina present Coronary Disease-Associated Artery/Lesion type: unspecified vessel or lesion type [place] vs. transplanted heart: unspecified whether [place] or transplanted heart Hyperlipidemia, unspecified hyperlipidemia type E78.5 Hyperlipidemia type: unspecified Type 2 diabetes mellitus without complication, without long-term current use of insulin E11.9 Diabetes mellitus complication status: without complication Diabetes mellitus emt intermediate insulin use: without [place] use Diabetes mellitus type: type 2 Vitamin B 12 deficiency E53.8 Crohn's disease of large intestine with other complication K50.118 Digestive disease complication type: other complication Gastrointestinal tract location: large intestine Hypokalemia E87.6 Right rotator cuff tendonitis M75.81 Assessment & Plan Assessment & Plan (1) Hypertension: Comment: - Continue antihypertensive regimen with lisinopril and metoprolol. Code(s): I10 - Essential (primary) hypertension Category: Medical Qualifiers: Hypertension type: unspecified Qualified Code(s): I10 - Essential (primary) hypertension (2) CAD (coronary artery disease): Comment: - Continue aspirin regimen for preventive care. Code(s): I25.10 - Atherosclerotic heart disease of [place] coronary artery without angina pectoris Category: Medical Qualifiers: Associated angina: unspecified whether angina present Coronary Disease-Associated Artery/Lesion type: unspecified vessel or lesion type [place] vs. transplanted heart: unspecified whether [place] or transplanted heart Qualified Code(s): I25.10 - Atherosclerotic heart disease of [place] coronary artery without angina pectoris (3) Hyperlipidemia: Comment: - Maintain current atorvastatin dosage; monitor cholesterol levels. Code(s): E78.5 - Hyperlipidemia, unspecified Category: Medical Qualifiers: Hyperlipidemia type: unspecified Qualified Code(s): E78.5 - Hyperlipidemia, unspecified (4) Diabetes mellitus: Comment: - Continue current medication regimen; monitor A1c levels. - Continued follow up with endocrinology Code(s): E11.9 - Type 2 diabetes mellitus without complications Category: Medical Qualifiers: Diabetes mellitus complication status: without complication Diabetes mellitus emt intermediate insulin use: without emt intermediate use Diabetes mellitus type: type 2 Qualified Code(s): E11.9 - Type 2 diabetes mellitus without complications (5) Vitamin B 12 deficiency: Comment: - Vitamin B12 levels WNL, therefore will start on Oral B12 Lozenges to promote S/l Absorption & repeat levels in 3 months to determine the need for injections. Code(s): E53.8 - Deficiency of other specified B group vitamins Category: Medical (6) Crohn's disease: Comment: - Status post ileostomy after having multiple SBO and flare-ups - Ostomy supplies form filled Code(s): K50.90 - Crohn's disease, unspecified, without complications Category: Medical Qualifiers: Digestive disease complication type: other complication Gastrointestinal tract location: large intestine Qualified Code(s): K50.118 - Crohn's disease of large intestine with other complication (7) Hypokalemia: Comment: - Prior history of hypokalemia however patient has noticed that he has had direct excretion of the potassium tablets into his ostomy. Given his normal potassium levels. Based on prior labs we will hold off on further supplementation and repeat labs in 3 months and determine if needs to be on potassium supplementation. Code(s): E87.6 - Hypokalemia Category: Medical (8) Right rotator cuff tendonitis: Comment: - Await results of MRI for further assessment. - Follow-up with orthopedics regarding potential interventions. Code(s): M75.81 - Other shoulder lesions, right shoulder Category: Medical Plan: Healthcare Maintenance: - Regular monitoring of blood pressure, lipids, and glucose levels. - Encouraged continued weight management and balanced nutrition. Patient was informed and verbally consented to the use of an ambient scribe for clinic note documentation during this visit. Plan During this visit, I discussed with the patient the discontinuation of potassium citrate due to ineffective absorption and confirmed the plan to monitor potassium levels. We transitioned his vitamin B12 management from injections to oral lozenges given his current normal levels, with plans to reassess in three months. We reviewed his medication regimen for chronic conditions, emphasizing the importance of continued diabetes, heart disease, hyperlipidemia, and hypertension management. Additionally, we addressed his shoulder injury, noting that the MRI results are pending and further evaluation from orthopedics may be required. I provided guidance on maintaining the current health maintenance practices, including regular screening and monitoring. Orders: Orders Comprehensive Met. Panel 3 Months E53.8 - Deficiency of other specified B group vitamins, K50.118 - Crohn's disease of large intestine with other complication Complete Blood Count Auto Diff 3 Months Z00.00 - Encounter for general adult medical examination without abnormal findings TSH reflex Free T4 3 Months Z00.00 - Encounter for general adult medical examination without abnormal findings Vitamin B12 and Folate 3 Months E53.8 - Deficiency of other specified B group vitamins, K50.118 - Crohn's disease of large intestine with other complication Lipid Panel 3 Months Z00.00 - Encounter for general adult medical examination without abnormal findings Vitamin D 25-OH Total 3 Months Z00.00 - Encounter for general adult medical examination without abnormal findings Medications: New cyanocobalamin (vitamin B-12) 1,000 mcg PO DAILY 250 ea 3RF 90 days E53.8 - Deficiency of other specified B group vitamins, K50.118 - Crohn's disease of large intestine with other complication Patient Instructions: - Stop taking potassium citrate until further notice. - Start taking oral B12 lozenges as directed. - Continue current medications for diabetes, heart, and blood pressure. - Call your orthopedic office to check on the status of the MRI. - Get blood work done a week before your next appointment in three months. - Monitor for any new or worsening symptoms and report them promptly.
--- OUTSIDE RECORDS SUMMARY | 2025-04-13 17:12 | XMS_ITS | Patient Health Record ---
Author Organization [facility] Address [address] [place] [address] Care Team Providers Care Shop Tailor Apprentice Name Role Phone Nehal (RETIRED) Hi COHN Primary Care Provide Dallin Magaña [phone] Allergies Allergen (clinical drug ingredient) Drug/Non Drug [...] TABLET BY MOUTH EVERY DAY FOR 90 DAYS; Duration: 90 Active Farxiga 5 MG Oral; Duration: 60 Active Potassium Citrate ER 10 MEQ (1080 MG) Oral; Duration: 90 Active Metoprolol Succinate ER 25 MG Oral; Duration: 90 Active Allopurinol 100 MG Oral; Duration: 90 Active Atorvastatin Calcium 80 MG Oral; Duration: 90 Active Sucralfate 1 GM TAKE 1 TABLET BY MAYRA 3 TIMES A DAY 30 TO 60 MINUTES BEFORE MEALS; Duration: 30 Active Immunizations Vaccine Route Administration Date Status Comme nts Flu vaccine no Preserv 3 and > Unknown 04/06/2014 Admin istered Influenza Unknown 03/24/2021 Administered Problems Problem Type SNOMED Code ICD Code Onset Dates Problem Status W/U Status Risk Notes Problem Intestinal obstruction due to Crohn's disease of small intestine (125728371989037 3) Crohn's disease of small intestine with intestinal obstruction (K50.012) Active confirmed Problem Benign neoplasm of stomach (53033472) Gastric polyps (K31.7) Active confirmed Problem Chronic gastritis (4972558) Gastritis, chronic (K29.50) Active confirmed Problem Iron deficiency anemia due to chronic blood loss (506514341) Iron deficiency anemia due to chronic blood loss (D50.0) Active confirmed Problem Iron deficiency anemia (23642777) Iron deficiency anemia, unspecified iron deficiency anemia [...] Date MEDICARE OF [place] [address] [place] [address] [id number] ALFONSONANCY Self - patient is the insured [facility] [address] [place] [address] [id number] ALFONSO, NANCY Self - patient is the insured Medical (General) History Medical History History ICD Code Denies [place],CVA,Lung disease,renal disease IDDM Kidney stones Bladder stones [...]
--- OUTSIDE RECORDS SUMMARY | 2025-04-13 17:12 | XMS_ITS | Clinical Summary ---
Author Organization [facility] Address [address] [place] [id number] Care Team Providers Care Emergency Crew Supervisor Name Role Phone Hi Calvert MD Primary Care Provider [phone] Allergies Active Allergy Reactions Criticality Noted Date Comments Amoxicillin Other (see comments) 08/22/2020 Bacitracin Other (see comments) 08/22/2020 Infliximab Other (see comments) 08/22/2020 Penicillin G Other (see comments) 11/26/2021 Ceftriaxone Other (see comments) 08/22/2020 Sulfa Antibiotics Other (see comments) 08/23/19 Sulfamethoxazole-Trimethoprim Other (see comments) 08/22/2020 Medications Multiple Vitamins-Sargent als (MULTIVITAMIN ADULTS 50+ PO) Take 1 [...] Visit [facility] [address] [place] [address] Bijan Cleary MD [address] [facility] [address] [place] [address] Health Maintenance Due Date Last [...] Recently Relevant to Health Maintenance Insurance Medicare [facility] Medicare Unicare Care Teams Emergency Crew Supervisor Relationship Specialty Start Date End Date Hi Calvert MD [address] [place] PCP - General 07/04/20
--- OUTSIDE RECORDS SUMMARY | 2025-04-13 17:12 | XMS_ITS | Encounter Summary ---
Author Organization [facility] Address [address] [place] [address] Phone Care Team Providers Care Aws Software Development Engineer Name Role Phone Hi Calvert MD Primary Care Provider [phone] Reason for Visit * Reason Comments Med Refill Encounter Details Date Type Department Care Team (Late st Contact Info) Description 04/09/2024 Refill [facility] [address] [place] [id number] Bijan Cleary MD [address] [address] Social History Tobacco Use Types [...] Visit [facility] [address] [place] [address] Bijan Cleary MD [address] [address] documented as of this encounter Visit Diagnoses Not on filedocumented in this encounter Care Teams Aws Software Development Engineer Relationship Specialty Start Date End Date Hi Calvert MD [address] [place] PCP - General 07/04/20 documented as of this encounter
== END 2025-04-13 13:48 | disposition home or self-care (01) ==
LOC: HO.HMCHD 13:14
PROVIDERS: PCP Student in an Organized Health Care Education/Training Program; Visit Provider Student in an Organized Health Care Education/Training Program
DX: I10 Essential (primary) hypertension (principal); I25.10 Atherosclerotic heart disease of native coronary artery without angina pectoris; E78.5 Hyperlipidemia, unspecified; E11.9 Type 2 diabetes mellitus without complications; E53.8 Deficiency of other specified B group vitamins; K50.118 Crohn's disease of large intestine with other complication; E87.6 Hypokalemia; M75.81 Other shoulder lesions, right shoulder

== ENCOUNTER → 2025-04-13 13:13 | Outpatient (BNVA) | payer MEDICARE, OTHER, SELFPAY | PROVIDERS: PCP Student in an Organized Health Care Education/Training Program; Visit Provider Student in an Organized Health Care Education/Training Program | DX: I10 Essential (primary) hypertension (principal); I25.10 Atherosclerotic heart disease of native coronary artery without angina pectoris; E78.5 Hyperlipidemia, unspecified; E11.9 Type 2 diabetes mellitus without complications; E53.8 Deficiency of other specified B group vitamins; K50.118 Crohn's disease of large intestine with other complication; E87.6 Hypokalemia; M75.81 Other shoulder lesions, right shoulder; Z79.82 Long term (current) use of aspirin; Z79.84 Long term (current) use of oral hypoglycemic drugs; Z79.899 Other long term (current) drug therapy; Z93.2 Ileostomy status; Z13.30 Encounter for screening examination for mental health and behavioral disorders, unspecified; Z13.39 Encounter for screening examination for other mental health and behavioral disorders | CPT/HCPCS: 96127; 99212 ==

== ENCOUNTER 2025-05-04 14:27 | Outpatient (REF) | payer MEDICARE, OTHER, SELFPAY ==
--- NOTE | ~2025-05-04 | MR_ITS ---
EXAMINATION: MR SHOULDER WITHOUT CONTRAST, RIGHT CLINICAL INFORMATION: Right shoulder tendinitis COMPARISON: X-ray 02/11/2024 TECHNIQUE: MRI of the shoulder without contrast was performed on a high-field scanner. FINDINGS: ROTATOR CUFF: Mild supraspinatus tendinosis. Full-thickness tear of the anterior/middle fibers measuring 1.6 cm AP, 2.7 cm medial-lateral. Mild-moderate infraspinatus tendinosis. Teres minor is intact. Mild subscapularis tendinosis. No muscle atrophy or fatty infiltration. BICEPS: Not visualized, suspicious for full-thickness tear and distal retraction. CORACOACROMIAL ARCH: The undersurface of the acromion is curved with no subacromial spur. Moderate acromioclavicular arthritis. LABRUM/CAPSULE: Superior labral degenerative fraying/tear, with small caliber and irregularity Inferior capsule is intact. GLENOHUMERAL JOINT/MARROW: No greater tuberosity subcortical degenerative cyst/edema. No evidence of acute fracture. No suspicious marrow signal changes. No high-grade chondral loss. MR/MR shoulder RT wo con IMPRESSION: 1. Mild supraspinatus tendinosis. 1.6 x 2.7 cm full-thickness tear. 2. Mild-moderate infraspinatus tendinosis. Mild subscapularis tendinosis. 3. Biceps tendon full-thickness tear and distal retraction is suspected. 4. Superior labral degenerative fraying/tear. 5. Moderate acromioclavicular arthritis. Electronically signed by: Nolan Adame MD 05/05/2025 03:29 PM SIMON
--- OUTSIDE RECORDS SUMMARY | 2025-05-04 16:10 | XMS_ITS | Patient Health Record ---
Author Organization [facility] Address [address] [place] [address] Care Team Providers Care Automotive Engineering Teacher Name Role Phone Nehal (RETIRED) Hi COHN Primary Care Provide Dallin Magaña [phone] Allergies Allergen (clinical drug ingredient) Drug/Non Drug [...] due to Crohn's disease of small intestine (663501010696344 3) Crohn's disease of small intestine with intestinal obstruction (K50.012) Active confirmed Problem Benign neoplasm of stomach (17248361) Gastric polyps (K31.7) Active confirmed Problem Chronic gastritis (2601853) Gastritis, chronic (K29.50) Active confirmed Problem Iron deficiency anemia due to chronic blood loss (046205827) Iron deficiency anemia due to chronic blood loss (D50.0) Active confirmed Problem Iron deficiency anemia (62635182) Iron deficiency anemia, unspecified iron deficiency anemia [...] Date MEDICARE OF [place] [address] [place] [address] [id number] ALFONSONANCY Self - patient is the insured [facility] [employer] [address] [place] [address] [id number] ALFONSO, NANCY Self - patient is the insured Medical (General) History Medical History History ICD Code Denies [place],CVA,Lung disease,renal disease IDDM Kidney stones Bladder stones [...]
== END 2025-05-04 14:28 | disposition home or self-care (01) ==
LOC: HO.MRI 14:27
PROVIDERS: PCP Student in an Organized Health Care Education/Training Program; Visit Provider Physician Assistant
DX: M75.81 Other shoulder lesions, right shoulder (principal)
CPT/HCPCS: 73221

== ENCOUNTER → 2025-05-04 14:35 | Outpatient (BNV) | payer MEDICARE, OTHER, SELFPAY | PROVIDERS: PCP Student in an Organized Health Care Education/Training Program; Visit Provider Radiology Diagnostic Ultrasound | DX: M75.81 Other shoulder lesions, right shoulder (principal); M75.121 Complete rotator cuff tear or rupture of right shoulder, not specified as traumatic; M19.011 Primary osteoarthritis, right shoulder | CPT/HCPCS: 73221 ==

== ENCOUNTER 2025-05-05 10:02 | Outpatient (AMB) | payer MEDICARE, OTHER, SELFPAY ==
--- NOTE | 2025-05-05 10:06 | MHC.OFFVIS ---
Intake Visit Reasons: 1Y US/PSA/PVR Intake Note: Patient Is Present for US/PVR/PSA Urology Med: Finasteride, Allopurinol Antibiotic Allergy: Sulfa, Amoxicillin, Penicillin, Trimethoprim Blood Thinner: AspIrin PVR: 0ml Renal US 03/20/25 PSA 07/16/24 0.78 03/11/25 H A1C- 6.3 Antique Repairer Required: No Accompanied by: Self / Same As Patient Allergies infliximab (From Remicade) Allergy (Severe, Verified 05/05/25 10:06) CHEST,ARM PAIN azathioprine (From Imuran) Allergy (Intermediate, Verified 05/05/25 10:06) LOWERED WBC'S Iodinated Contrast Media (IV Dye, Iodine Containing) Allergy (Intermediate, Verified 05/05/25 10:06) CHILLS,RASH,SWEATS alendronate sodium (From FOSAMAX) Allergy (Mild, Verified 05/05/25 10:06) HIVES amoxicillin (AMOXICILLIN) Allergy (Mild, Verified 05/05/25 10:06) HIVES ceftriaxone (From ROCEPHIN) Allergy (Mild, Verified 05/05/25 10:06) HIVES omeprazole (From PRILOSEC) Allergy (Mild, Verified 05/05/25 10:06) HIVES sulfamethoxazole (From Bactrim) Allergy (Mild, Verified 05/05/25 10:06) HIVES lansoprazole (Prevpac) Allergy (Unknown, Verified 05/05/25 10:06) Unknown penicillin V Allergy (Unknown, Verified 05/05/25 10:06) Unknown trimethoprim (From Bactrim) Allergy (Unknown, Verified 05/05/25 10:06) HIVES SURGICAL MESH Allergy (Unknown, Uncoded 05/05/25 10:06) Unknown HPI Comments Details: Jamie is a pleasant male. He is a patient Dr. Calvert. He is seen for the following urologic conditions - nephrolithiasis - lower urinary tract - neovascularity Potassium citrate passing out ostomy May use citrate powder. Will need flavor Information provided Twelve month follow-up Lower urinary tract symptoms Has been on finasteride PSA 06/15 1.1 Nephrolithiasis Background Crohn's disease with ileostomy high output Prior history of stones Imaging - 09/12 renal ultrasound bilateral cysts, no nephrolithiasis - 04/14 renal ultrasound bilateral cysts no nephrolithiasis - 02/13 renal ultrasound. No evidence of stones.Stable exophytic or perinephric echogenic mass along the lower pole the left kidney which based on prior CT imaging is consistent with fat necrosis. - 03/17 renal ultrasound no evidence of stones. Prior fat area noted. - 03/18 renal ultrasound. No stones. Has prior CT imaging with complex cyst area. Intervention - multiple prior renal intervention Therapeutic plan - fluid intake - use of Tums with primary meal each day as oxalate binder - interval surveillance [facility] Medical History Hypokalemia Hypertension Use of steroids Hyperlipidemia Vitamin B 12 deficiency Epidermal cyst Enlarged prostate Elevated cholesterol Crohn disease Squamous cell cancer of lip Lesion of lip Calculus of kidney CAD (coronary artery disease) Gout Nephrolithiasis Diabetes mellitus Surgical History History of colonoscopy (~11/23/14) History of removal of cyst (~06/03/23) H/O squamous cell carcinoma excision (10/17/22) History of biopsy (09/25/22) History of esophagogastroduodenoscopy (EGD) H/O cystoscopy History of quadruple bypass (~10/2016) H/O thumb surgery H/O ileostomy Family History Father Colon cancer Mother No problems noted. Paternal Grandfather Cancer of unknown origin Social History Housing: House Patient Tobacco Use Status: Former Tobacco user Years Smoked: 20 years-quit 1981 e-Cigarette/Vaping Use: Former Use service: No Current occupational status: retired Cognitive needs: No Hearing needs: No Vision needs: Yes (reading glasses) Review of Systems Const Denies chills and Denies fever(s) Card Reports no additional complaints and Denies syncope Resp Denies cough GI Denies abdominal pain and Denies heartburn Reports as per HPI and Denies change in libido Neuro Denies syncope Psych Denies change in libido Endo Denies change in libido Physical Exam Const General: cooperative, healthy appearing, comfortable and no acute distress Orientation/consciousness: patient oriented x3 HEENT Face and sinus: Yes normal facial exam Mouth: moist mucous membranes Neck Neck: Yes normal visual inspection, Yes full ROM and Yes trachea midline Chest Chest palpation & inspection: normal inspection of the chest Resp Effort & Inspection: normal respiratory effort, able to speak in complete sentences and no respiratory distress GI Inspection: Yes normal to inspection Back/Spine/Pelvis Cervical Spine: normal cervical lordosis Thoracic/Lumbar Spine: thoracic and lumbar spine normal to inspection Skin General skin exam: no rashes or lesions noted Neuro General: patient oriented x3, gait normal, tone normal and moves all extremities Extrem General: Yes normal to inspection and Yes capillary refill normal Office Procedures Post Void Residual Post Residual Void Post Void Residual (PVR): 0 63147-Bokq Void Residual by ultrasound Assessment & Plan Assessment & Plan (1) BPH w urinary obs/LUTS: Code(s): N40.1 - Benign prostatic hyperplasia with lower urinary tract symptoms; N13.8 - Other obstructive and reflux uropathy Category: Medical (2) Calculus of kidney: Code(s): N20.0 - Calculus of kidney Category: Medical Plan Twelve month follow-up renal imaging Orders: Orders AMB Post Void Residual by ultrasound Today N13.8 - Other obstructive and reflux uropathy, N40.1 - Benign prostatic hyperplasia with lower urinary tract symptoms US renal BI 12 Months N20.0 - Calculus of kidney Patient Instructions: This note is constructed using voice recognition software. While every effort has been made to ensure accuracy career development coordinator/teacher errors may have been included. Imaging studies, laboratory and physical exam results were discussed and reviewed in detail. No major barriers to patient understanding were identified. An opportunity to ask questions regarding the treatment plan was provided. All questions were answered. The patient expressed understanding and agreement with the above treatment plan. The patient is aware they should contact our office by phone for worsening of their current condition or the appearance of new urologic symptoms. Compliance is encouraged with any medications and followup testing that is ordered. It is a privilege to participate in the urologic care of your patient. If you have any questions or concerns regarding treatment for the above conditions, or other urologic issues, please do not hesitate to contact me. The office telephone contact is [phone]. Sincerely, Dr Micah Canela MD, ANTOINETTE [facility] - Urology Compassionate Specialist Care for the Genitourinary System Coding Level of Care Code Est Pt Level 4 (51881) Complex EM visit Add On G2211 Diagnoses BPH w urinary obs/LUTS N40.1; N13.8 Calculus of kidney N20.0 CPT Codes Post Residual Void - PVR CPT Code: 46385-Wpwk Void Residual by ultrasound ([id number])
--- OUTSIDE RECORDS SUMMARY | 2025-05-05 11:45 | XMS_ITS | Patient Health Record ---
Author Organization [facility] Address [address] [place] [address] Care Team Providers Care Qa Software Tester Name Role Phone Nehal (RETIRED) Hi COHN Primary Care Provide Dallin Magaña [phone] Allergies Allergen (clinical drug ingredient) Drug/Non Drug [...] due to Crohn's disease of small intestine ([id number] 3) Crohn's disease of small intestine with intestinal obstruction (K50.012) Active confirmed Problem Benign neoplasm of stomach (16860314) Gastric polyps (K31.7) Active confirmed Problem Chronic gastritis (9369465) Gastritis, chronic (K29.50) Active confirmed Problem Iron deficiency anemia due to chronic blood loss (724995899) Iron deficiency anemia due to chronic blood loss (D50.0) Active confirmed Problem Iron deficiency anemia (91158107) Iron deficiency anemia, unspecified iron deficiency anemia [...] Date MEDICARE OF [place] [address] [place] [address] [id number] ALFONSONANCY Self - patient is the insured [facility] [employer] [address] [place] [address] [id number] ALFONSO, NANCY Self - patient is the [...]
--- OUTSIDE RECORDS SUMMARY | 2025-05-05 11:46 | XMS_ITS | Continuity of Care Document ---
Author Organization [facility] [address] [place] [address] Phone [phone] Care Team Providers Care Back End Engineer Name Role Phone Hi Calvert M.D. Care Team Information Receiv er [phone] Problems Active Problems Provider Date Type 2 [...] SIG Qnty Indications Order ing Provider Date Kyxcekgd9uq/0.5ML Solution Auto-Inject Inject 5 MG Subcutaneously Once A Week as Directed For 4 Weeks 2units E11.8 Valentin Helm M.D. 02/14/2024 N18.9 I25.10 Qghhcmkfkn0ok Tablets 1 by mouth every day Valentin Helm M.D. 07/09/19 24 Pmkvrmc08dv Tablets 1 by mouth every day 90tabs Valentin Helm M.D. 11/24/19 23 Tecsmno3cu Tablets 1 by mouth every day Valentin Helm M.D. 08/23/19 23 Vitamin Deficiency Injectable System-[id number]/ML Kit inject every month Valentin Aly M.D. 08/22/[address] 1 by mouth every day 90tabs Valentin Helm M.D. 04/17/20 22 Metoprolol Succinate ER25mg Tablets ER 24HR Take 1 Tablet By Mouth Every Day as Directed Hi Calvert M.D. Rxydhzlcpnz004jp Tablets Take 2 Tablets By Mouth Every Day Unknown Potassium Citrate DV43Kjv (1080 mg) Tablets ER Take 1 Tablet By Mouth Twice A Day as Directed Unknown Atorvastatin Kqjlins86cy Tablets Take 1 Tablet By Mouth Everyday AT Bedtime Hi Calvert M.D. Pantoprazole Mhohyl00in Tablets DR Take 1 Tablet By Mouth [...]
== END 2025-05-05 11:05 | disposition home or self-care (01) ==
LOC: HO.HUSH 10:03
PROVIDERS: PCP Internal Medicine; Visit Provider Urology
DX: N40.1 Benign prostatic hyperplasia with lower urinary tract symptoms (principal); N13.8 Other obstructive and reflux uropathy; N20.0 Calculus of kidney
CPT/HCPCS: 99214; G2211

== ENCOUNTER → 2025-05-05 10:02 | Outpatient (BNVA) | payer MEDICARE, OTHER, SELFPAY | PROVIDERS: PCP Internal Medicine; Visit Provider Urology | DX: N40.1 Benign prostatic hyperplasia with lower urinary tract symptoms (principal); N13.8 Other obstructive and reflux uropathy; N20.0 Calculus of kidney; Z79.82 Long term (current) use of aspirin; Z87.891 Personal history of nicotine dependence | CPT/HCPCS: 51798; 99212 ==

== ENCOUNTER 2025-05-10 13:02 | Emergency (ER) | payer MEDICARE, OTHER, SELFPAY ==
--- NOTE | ~2025-05-10 | XR_ITS ---
EXAMINATION: XR HAND, RIGHT CLINICAL INFORMATION: fall COMPARISON: December 17, 2014 TECHNIQUE: PA, lateral, and oblique views of the right hand. FINDINGS: Soft tissue ossifications are along the distal radial side of scaphoid and dorsal to the base of the first carpal. 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 Mild degenerative changes are present in the DIP and PIP joints with mild narrowing and marginal osteophytes. No fractures are evident. XR/XR hand RT min 3V IMPRESSION: No acute fracture. Surgically resected trapezium. 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 Electronically signed by: Tomi Dacosta MD 05/10/2025 02:20 PM SIMON
--- NOTE | ~2025-05-10 | XR_ITS ---
EXAMINATION: XR WRIST, RIGHT CLINICAL INFORMATION: fall COMPARISON: Hand x-ray December 17, 2014 TECHNIQUE: PA, lateral, oblique, and scaphoid views of the right wrist. FINDINGS: There has been surgical resection of trapezium. There is soft tissue ossification in the postoperative bed. There is no joint diastases. There is no carpal row step-off. No fracture line is apparent. XR/XR wrist RT min 3V IMPRESSION: No acute abnormality. 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 Electronically signed by: Tomi Dacosta MD 05/10/2025 02:22 PM SIMON
--- NOTE | ~2025-05-10 | CT_ITS ---
EXAMINATION: CT CERVICAL SPINE WITHOUT CONTRAST CLINICAL INFORMATION: Fall with head strike. Neck pain. COMPARISON: None available. TECHNIQUE: Spiral CT imaging of the cervical spine performed in axial plane without contrast. Multiplanar reformatted images were constructed from the axial data set. This CT examination was performed using dose optimization techniques as appropriate, variously including the following: *Automated exposure control *Adjustment of mA and/or kV according to patient size (this includes techniques or standardized protocols for targeted exams where dose is matched to indication/reason for exam; i.e. extremities or head) *Use of iterative reconstruction technique FINDINGS: CORONAL ALIGNMENT: -There is a minimal levoconvex scoliosis. SAGITTAL ALIGNMENT: -There is a normal cervical lordosis. -There is no evidence of traumatic subluxation. -2 mm degenerative anterolistheses are present C4-5 and C5-6, as well as C7-T1. C1-C2 AND CRANIOCERVICAL JUNCTION: -Intact and normally aligned. VERTEBRAL BODIES AND FACETS: -There are no definite fractures, compression deformities, or suspicious bone lesions. -There is no evidence of traumatic subluxation. -There is normal facet alignment. There is multilevel hypertrophic degenerative facet changes right greater than left. DISCS: -Severe disc degeneration is present C5-6 and C6-7. Sclerosis of the endplates is present at these levels. -Mild to moderate disc degeneration is present C4-5, and C7-T1. CENTRAL CANAL: -No evidence of high-grade central canal narrowing or large disc herniation allowing for modality limitations. PREVERTEBRAL AND PARAVERTEBRAL SOFT TISSUES: -No prevertebral or paravertebral soft tissue edema or abnormal fluid collection. -Mild to moderate left carotid bulb calcifications. -Global thyroid enlargement without dominant nodule seen. LUNG APICES: -Clear bilaterally. CT/CT cervical spine wo IV con IMPRESSION: 1. No CT evidence of acute cervical spine fracture or injury. 2. Moderate degenerative cervical spondylosis. 3. Thyroid goiter. Electronically signed by: Pascual Clements MD 05/10/2025 04:09 PM [facility]
--- NOTE | ~2025-05-10 | CT_ITS ---
EXAMINATION: CT HEAD WITHOUT CONTRAST CLINICAL INFORMATION: Fall and hit head COMPARISON: December 07, 2008 is not available on PACS system. TECHNIQUE: Contiguous axial imaging was performed from the skull base to vertex without intravenous administration of contrast. This CT examination was performed using dose optimization techniques as appropriate, variously including the following: *Automated exposure control *Adjustment of mA and/or kV according to patient size (this includes techniques or standardized protocols for targeted exams where dose is matched to indication/reason for exam; i.e. extremities or head) *Use of iterative reconstruction technique DLP: 705.02 mGy-cm FINDINGS: No acute cortical disruption within the bony calvarium. No acute intracranial hemorrhage, mass effect, midline shift, hydrocephalus or herniation. Sinclair-white matter differentiation is normal. Prominence of the extra-axial CSF spaces cerebral sulci and ventricles. Posterior cranial fossa contents demonstrated no acute hemorrhage or mass effect. Normal position of the cerebellar tonsils. Sellar/suprasellar region demonstrated a 4 mm round hyperdensity in the anterior sella turcica/pituitary gland. Calcified plaques in the cavernous supraclinoid segments both ICAs and V4 segments of the vertebral arteries. No air-fluid levels in the paranasal sinuses. Tympanic cavities and mastoid cells are aerated. CT/CT head/brain wo IV con IMPRESSION: No acute fracture, bony calvarium. No acute intracranial hemorrhage. Atherosclerosis disease, intracranial. 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 Electronically signed by: Holland Mckeon MD 05/10/2025 04:01 PM [facility] [place]
[2025-05-10 13:21] VITALS: BP 138/64; PULSE 66; RESP 16; TEMP 36; O2SAT 97; BMI 34.9
--- NOTE | 2025-05-10 13:23 | ED.GENADULT ---
HPI - General Adult General Chief complaint: Fall Stated complaint: Head Wound Fall 05/10/25 Time Seen by Provider: 05/10/25 16:50 Source: patient, RN notes reviewed and old records reviewed Mode of arrival: ambulatory Limitations: no limitations History of Present Illness ED Provider: Jessica HPI narrative: 80-year-old male with a past medical history significant for hypertension, hyperlipidemia, coronary artery disease, diabetes, Crohn's disease presents for evaluation after a fall. The patient is walking his dog reports he tripped in his street. He landed face 1st pain He denies any loss of consciousness Denies any blurry vision. He is not anticoagulated. He has a wound to the right side of his face any also has some mild soreness to his right hand and wrist. He reports previous surgeries on both of his wrists Use able to ambulate without any difficulty after the fall Denies any prodrome of lightheadedness, chest pain palpitations prior to all Related Data Home Medications ?Medication ?Instructions ?Recorded ?Confirmed aspirin 81 mg tablet,delayed 81 mg PO DAILY 09/14/20 04/13/25 release tirzepatide 5 mg/0.5 mL 10 mg subcut 03/24/24 04/13/25 subcutaneous pen injector (Mounjaro) lisinopril 5 mg tablet 5 mg PO DAILY 09/28/24 04/13/25 dapagliflozin propanediol 10 mg 10 mg PO DAILY 03/11/25 04/13/25 tablet (Farxiga) multivitamin 1 tab PO DAILY 03/11/25 04/13/25 pantoprazole 40 mg tablet,delayed 40 mg PO BID 03/11/25 04/13/25 release cholecalciferol (vitamin D3) 25 25 mcg PO DAILY 04/13/25 04/13/25 mcg (1,000 unit) capsule Previous Rx's ?Medication ?Instructions ?Recorded finasteride 5 mg tablet 5 mg PO DAILY 90 days #90 tabs 01/25/25 cyanocobalamin (vitamin B-12) 500 1,000 mcg PO DAILY 90 days #250 ea 04/13/25 mcg lozenges allopurinol 100 mg tablet 200 mg (2 x 100 mg) PO DAILY 90 04/22/25 days #180 tabs atorvastatin 80 mg tablet 80 mg PO BEDTIME 90 days #90 tabs 04/22/25 metoprolol succinate 25 mg 25 mg PO DAILY 90 days #90 tabs 04/22/25 tablet,extended release 24 hr Allergies Allergy/AdvReac Type Severity Reaction Status Date / Time infliximab (From Remicade) Allergy Severe CHEST,ARM Verified 05/10/25 13:23 PAIN azathioprine (From Imuran) Allergy Intermediate LOWERED Verified 05/10/25 13:23 WBC'S Iodinated Contrast Media (IV Allergy Intermediate CHILLS,RASH Verified 05/10/25 13:23 Dye, Iodine Containing) ,SWEATS alendronate sodium (From Allergy Mild HIVES Verified 05/10/25 13:23 FOSAMAX) amoxicillin (AMOXICILLIN) Allergy Mild HIVES Verified 05/10/25 13:23 ceftriaxone (From ROCEPHIN) Allergy Mild HIVES Verified 05/10/25 13:23 omeprazole (From PRILOSEC) Allergy Mild HIVES Verified 05/10/25 13:23 sulfamethoxazole (From Allergy Mild HIVES Verified 05/10/25 13:23 Bactrim) lansoprazole (Prevpac) Allergy Unknown Unknown Verified 05/10/25 13:23 penicillin V Allergy Unknown Unknown Verified 05/10/25 13:23 trimethoprim (From Bactrim) Allergy Unknown HIVES Verified 05/10/25 13:23 SURGICAL MESH Allergy Unknown Unknown Uncoded 05/10/25 13:23 Review of Systems Constitutional: Constitutional: Denies body ache(s), Denies chills, Denies fever(s) and Denies headache(s) Eyes: Eyes: Denies blind spots, Denies blurry vision, Denies seeing flashes, Denies photophobia and Denies spots in vision ENT: Denies vertigo, Denies dizziness and Denies headache(s) Cardiovascular: Cardiovascular: Denies chest pain, Denies syncope and Denies dyspnea on exertion Respiratory: Respiratory: Denies cough and Denies dyspnea on exertion Musculoskeletal: Musculoskeletal: Reports arthralgias, Denies joint swelling and Denies limited range of motion Integumentary/Breasts: Skin/Breast: Denies erythema and Reports wounds Neurologic: Denies vertigo, Denies dizziness, Denies syncope and Denies headache(s) PMFSH Past Medical History Medical History Hypokalemia Hypertension Use of steroids Hyperlipidemia Vitamin B 12 deficiency Epidermal cyst Enlarged prostate Elevated cholesterol Crohn disease Squamous cell cancer of lip Lesion of lip Calculus of kidney CAD (coronary artery disease) Gout Nephrolithiasis Diabetes mellitus Surgical History History of colonoscopy (~11/23/14) History of removal of cyst (~06/03/23) H/O squamous cell carcinoma excision (10/17/22) History of biopsy (09/25/22) History of esophagogastroduodenoscopy (EGD) H/O cystoscopy History of quadruple bypass (~10/2016) H/O thumb surgery H/O ileostomy Family History Family History Father Colon cancer Mother No problems noted. Paternal Grandfather Cancer of unknown origin Social History Social History Housing: House Patient Tobacco Use Status: Former Tobacco user Years Smoked: 20 years-quit 1981 e-Cigarette/Vaping Use: Former Use Advance Directives: No Advance Directives Information Provided: No service: No Current occupational status: retired Cognitive needs: No Hearing needs: No Vision needs: Yes (reading glasses) Physical Exam ED Vital Signs: Vital Signs - 24 hr 05/10/25 13:21 05/10/25 17:53 05/10/25 17:53 Temperature 96.8 F 97.8 F 97.8 F Pulse Rate 66 81 81 Respiratory Rate 16 18 18 Blood Pressure 138/64 139/75 139/75 Pulse Oximetry 97 100 100 Oxygen Delivery Method Room Air Room Air Room Air BMI result Body Mass Index 34.9 Const General: healthy appearing, comfortable, no acute distress, alert and awake Nutritional Appearance: well nourished Orientation/consciousness: patient oriented x3 HENMT Throat: Yes posterior oropharynx normal Eyes Other: There was an abrasion to the right lateral eyebrow and right temporal region. No deep wounds or lacerations. There is some surrounding ecchymosis. No orbital tenderness or crepitus Eyelids: Yes eyelids normal Conjunctivae: conjunctivae normal Sclerae: sclerae normal Corneas: corneas normal Pupils: Equal, round and reactive pupils present EOM: EOMs intact bilaterally (Without entrapment or nystagmus) Direct Ophthalmoscopy: No photophobia Neck Neck: Yes full ROM Resp Effort & Inspection: normal respiratory effort, able to speak in complete sentences and not labored GI Inspection: No distended Skin General skin exam: elasticity normal Neuro General: patient oriented x3 Cranial nerves: Yes CN's II-XII intact bilaterally, Yes Equal, round and reactive pupils present and Yes Bilaterally intact EOM present Cognition (Neuro): normal cognition Extrem Other: Moving all extremities well without any obvious deformities Course Course Course Narrative: RME: 80 year male presents to ED for head injury after tripping over his dog. patient denies loss of coscnsisouness. positive for right facial abrasions. images ordered Medications Administered Discontinued Medications Generic Name Dose Route Start Last Admin Trade Name Freq PRN Reason Stop Dose Admin Diphtheria/Tetanus/Acell Pertussis 0.5 ml 05/10/25 17:02 05/10/25 17:46 Diphth,Pertus(Acell),Tet Adult 0.5 Ml Syringe IM 05/10/25 17:03 0.5 ml .ONCE ONE Administration Medical Decision Making Medical Decision Making [facility] Narrative: 80-year-old male presents for evaluation after a nonsyncopal fall. He reports tripping while he was walking his dog. He landed in his head and has a small abrasion to the right temporal region and above his right eyebrow. No deep wounds or lacerations requiring repair. These were cleaned and dressed sterilely. He is unsure of his last tetanus shot, I do not see a recent tetanus in the computer and he agrees to receive a tetanus booster. He had a CT scan of the brain and cervical spine that did not show any traumatic injuries. X-ray of the right hand and wrist show arthritis but again no traumatic injuries. The patient is quite well appearing with stable vital signs are nonfocal neuro exam, he will be discharged in stable condition. Differential Diagnosis Differential Diagnoses: The differential diagnosis associated with the presentation includes Mechanical fall Abrasion Laceration Skin tear Intracranial hemorrhage Cervical fracture Wrist fracture Contusion Radiology Impression Discussion of test interpretation with radiology: I have reviewed the radiologist's reading. Radiologist Impression: FINDINGS: No acute cortical disruption within the bony calvarium. No acute intracranial hemorrhage, mass effect, midline shift, hydrocephalus or herniation. Sinclair-white matter differentiation is normal. Prominence of the extra-axial CSF spaces cerebral sulci and ventricles. Posterior cranial fossa contents demonstrated no acute hemorrhage or mass effect. Normal position of the cerebellar tonsils. Sellar/suprasellar region demonstrated a 4 mm round hyperdensity in the anterior sella turcica/pituitary gland. Calcified plaques in the cavernous supraclinoid segments both ICAs and V4 segments of the vertebral arteries. No air-fluid levels in the paranasal sinuses. Tympanic cavities and mastoid cells are aerated. CT/CT head/brain wo IV con IMPRESSION: No acute fracture, bony calvarium. No acute intracranial hemorrhage. Atherosclerosis disease, intracranial. 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 Electronically signed by: Holland Mckeon MD 05/10/2025 04:[address]/CT cervical spine wo IV con IMPRESSION: 1. No CT evidence of acute cervical spine fracture or injury. 2. Moderate degenerative cervical spondylosis. 3. Thyroid goiter. Electronically signed by: Pascual Clements MD 05/10/2025 04:09 PM EST RP FINDINGS: There has been surgical resection of trapezium. There is soft tissue ossification in the postoperative bed. There is no joint diastases. There is no carpal row step-off. No fracture line is apparent. XR/XR wrist RT min 3V IMPRESSION: No acute abnormality. 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 Electronically signed by: Tomi Dacosta MD 05/10/2025 02:22 PM EST RP FINDINGS: Soft tissue ossifications are along the distal radial side of scaphoid and dorsal to the base of the first carpal. 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 Mild degenerative changes are present in the DIP and PIP joints with mild narrowing and marginal osteophytes. No fractures are evident. XR/XR hand RT min 3V IMPRESSION: No acute fracture. Surgically resected trapezium. 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 Electronically signed by: Tomi Dacosta MD 05/10/2025 02:20 PM EST RP Discharge Plan Discharge Clinical Impression: Facial injury Patient Disposition: Home, Self-Care Additional Instructions: Your workup in the ER today was reassuring. This includes a CT scan of the brain and cervical spine. Additionally, the x-rays of your right hand and wrist show arthritis but no fractures. Your tetanus was updated today in his good for 5 years. Keep the area clean and dry. You may apply topical antibiotic once daily such as bacitracin or Neosporin Prescriptions: No Action finasteride 5 mg tablet 5 mg PO DAILY 90 Days Qty: 90 3RF metoprolol succinate 25 mg tablet extended release 24 hr 25 mg PO DAILY 90 Days Qty: 90 1RF atorvastatin 80 mg tablet 80 mg PO BEDTIME 90 Days Qty: 90 1RF allopurinol 100 mg tablet 200 mg PO DAILY 90 Days Qty: 180 1RF aspirin 81 mg tablet,delayed release (DR/EC) 81 mg PO DAILY pantoprazole 40 mg tablet,delayed release (DR/EC) 40 mg PO BID Mounjaro 5 mg/0.5 mL pen injector 10 mg subcut lisinopril 5 mg tablet 5 mg PO DAILY dapagliflozin propanediol [Farxiga] 10 mg tablet 10 mg PO DAILY multivitamin Tablet 1 tab PO DAILY cholecalciferol (vitamin D3) 25 mcg (1,000 unit) capsule 25 mcg PO DAILY cyanocobalamin (vitamin B-12) 500 mcg lozenge 1,000 mcg PO DAILY 90 Days Qty: 250 3RF Interventions: ED Discharge Assessment Last Done: 05/10/25 17:53 Discharge Date/Time: 05/10/25 17:54 Print Language: Upper Sorbian
[2025-05-10] MEDS: Diphth,Pertus(ACell),Tet Adult 0.5 ML SYRINGE IM (17:46)
[2025-05-10 17:53] VITALS: BP 139/75; PULSE 81; RESP 18; TEMP 36.6; O2SAT 100
--- NOTE | 2025-05-10 17:53 | PC.NURSE ---
pt medicated per AUG, tetanus VIS given.
== END 2025-05-10 17:54 | disposition home or self-care (01) ==
PROVIDERS: Emergency Provider Emergency Medicine; PCP Internal Medicine
DX: S00.81XA Abrasion of other part of head, initial encounter (principal); S69.91XA Unspecified injury of right wrist, hand and finger(s), initial encounter; R51.9 Headache, unspecified; M54.2 Cervicalgia; M25.531 Pain in right wrist; X50.1XXA Overexertion from prolonged static or awkward postures, initial encounter; W01.0XXA Fall on same level from slipping, tripping and stumbling without subsequent striking against object, initial encounter; Y93.9 Activity, unspecified; Y92.9 Unspecified place or not applicable; Y99.8 Other external cause status; Z91.81 History of falling; Z79.899 Other long term (current) drug therapy; Z23 Encounter for immunization
CPT/HCPCS: 70450; 72125; 73110; 73130; 90471; 90715; 99283; 99284

== ENCOUNTER → 2025-05-10 13:24 | Outpatient (BNV) | payer MEDICARE, OTHER, SELFPAY | PROVIDERS: PCP Internal Medicine; Visit Provider Radiology Diagnostic Radiology | DX: Z04.3 Encounter for examination and observation following other accident (principal); I67.2 Cerebral atherosclerosis | CPT/HCPCS: 70450 ==

== ENCOUNTER 2025-05-17 08:20 | Outpatient (AMB) | payer MEDICARE, OTHER, SELFPAY ==
--- NOTE | 2025-05-17 08:10 | A.OFFPC_ITS ---
Vital Signs 05/17/25 08:11 Height 5 ft 10 in Weight 177 lb BMI 25.4 BP 126/80 Blood Pressure Location Rt brachial Position Sitting Pulse 78 Pulse Source Pulse Oximeter Temp 97.4 F Temp Source Temporal Artery Scan Pulse Oximetry (%) 98 Oxygen Delivery Method Room Air Intake Visit Reasons: fall on 05/10 landed on face, chest, and rt hand Telephone Sterilizer Required: No Accompanied by: Self / Same As Patient Allergies infliximab (From Remicade) Allergy (Severe, Verified 05/17/25 08:21) CHEST,ARM PAIN azathioprine (From Imuran) Allergy (Intermediate, Verified 05/17/25 08:21) LOWERED WBC'S Iodinated Contrast Media (IV Dye, Iodine Containing) Allergy (Intermediate, Verified 05/17/25 08:21) CHILLS,RASH,SWEATS alendronate sodium (From FOSAMAX) Allergy (Mild, Verified 05/17/25 08:21) HIVES amoxicillin (AMOXICILLIN) Allergy (Mild, Verified 05/17/25 08:21) HIVES ceftriaxone (From ROCEPHIN) Allergy (Mild, Verified 05/17/25 08:21) HIVES omeprazole (From PRILOSEC) Allergy (Mild, Verified 05/17/25 08:21) HIVES sulfamethoxazole (From Bactrim) Allergy (Mild, Verified 05/17/25 08:21) HIVES lansoprazole (Prevpac) Allergy (Unknown, Verified 05/17/25 08:21) Unknown penicillin V Allergy (Unknown, Verified 05/17/25 08:21) Unknown trimethoprim (From Bactrim) Allergy (Unknown, Verified 05/17/25 08:21) HIVES SURGICAL MESH Allergy (Unknown, Uncoded 05/10/25 13:23) Unknown Medication List - Last Reconciled 05/17/25 by Lauri Carvajal MD allopurinol 200 mg (2 x 100 mg) PO DAILY 90 days aspirin 81 mg PO DAILY atorvastatin 80 mg PO BEDTIME 90 days cholecalciferol (vitamin D3) 25 mcg PO DAILY dapagliflozin propanediol (Farxiga) 10 mg PO DAILY finasteride 5 mg PO DAILY 90 days lisinopril 5 mg PO DAILY metoprolol succinate ER 25 mg PO DAILY 90 days multivitamin 1 tab PO DAILY pantoprazole 40 mg PO BID tirzepatide (Mounjaro) 10 mg subcut Tobacco use date assessed: 05/17/25 Fall risk assessment: No Falls in past year Last assessed Fall Risk: 05/17/25 Dental Screening Dental Screen Date: 05/17/25 Did you have a dental visit in the last 12 months?: Yes Did you have a dental problem in the last 6 months where you did not have access to dental care?: No HPI HPI Comments History of Present Illness Details History of Present Illness The patient is a 80 year old individual presenting with follow-up for a fall. The fall occurred when the patient was pulled by a dog, causing the patient to strike the face. The patient reports resultant sore ribs, facial trauma with some residual eye swelling, but denies loss of consciousness, eye pain, or vision changes. The patient is managing the facial abrasion with a topical cream. The patient also reports on a separate shoulder issue, for which a recent MRI revealed a full-thickness rotator cuff tear involving the biceps tendon. This injury, combined with the bruised ribs, causes significant sleep disturbance, an d the patient can only sleep sitting up. An appointment is scheduled with an orthopedist on the of the month to discuss the shoulder. Past medical history is significant for arthritis in the hands, which causes cramping pain managed with Tylenol. The patient has had surgery on both thumbs, with one now being fused. Chronic conditions include gout, hyperlipidemia, heart disease, type 2 diabetes, BPH, hypertension, and acid reflux, all managed with medications. The patient is also followed by an issuer for diabetes, with the last A1c being 6.3. Due to a past gastrointestinal resection, there is a concern for vitamin B12 absorption. The patient has been taking vitamin B tablets, not the previously recommended sublingual form. Medical History: - Type 2 diabetes mellitus, followed by endocrinology - Hypertension - Hyperlipidemia - Gout - Coronary artery disease - Benign prostatic hyperplasia - Gastroesophageal reflux disease - Arthritis of hands - Full thickness rotator cuff tear - History of gastrointestinal resection - History of ostomy Surgical History: - Bilateral thumb surgeries, with one th umb now fused - Gastrointestinal resection Medications: - Allopurinol 200 mg once a day for gout - Aspirin 81 mg for heart disease - Atorvastatin for high cholesterol and heart disease - Farxiga 10 mg for diabetes - Mounjaro 10 mg for diabetes - Finasteride 5 mg for BPH - Lisinopril 5 mg for blood pressure - Metoprolol for blood pressure - Pantoprazole for acid reflux - Tylenol as needed for arthritis pain - Vitamin B tablets (to be discontinued) Diagnostic Results: - Imaging: - Shoulder MRI: Revealed a full thicknes s tear of the rotator cuff (biceps tendon). - X-rays (post-fall): No acute findings. - Labs: - Last HbA1c: 6.3. - Vitamin B12 (past): Levels were fine. Social History - Functional Status: Reports difficulty sleeping due to pain, and is only able to sleep while sitting up. - Past History: Reports playing football and hockey in the past. - Substance Use: The patient dislikes pa in medications, specifically noting that oxycodone makes the patient's skin crawl. [facility] Medical History (Updated 05/17/25 @ 08:47 by Lauri Carvajal MD) Rotator cuff tear Trauma Hypokalemia Hypertension Use of steroids Hyperlipidemia Vitamin B 12 deficiency Epidermal cyst Enlarged prostate Elevated cholesterol Crohn disease Squamous cell cancer of lip Lesion of lip Calculus of kidney CAD (coronary artery disease) Gout Nephrolithiasis Diabetes mellitus Surgical History History of colonoscopy (~11/23/14) History of removal of cyst (~06/03/23) H/O squamous cell carcinoma excision (10/17/22) History of biopsy (09/25/22) History of esophagogastroduodenoscopy (EGD) H/O cystoscopy History of quadruple bypass (~10/2016) H/O thumb surgery H/O ileostomy Family History (Updated 05/17/25 @ 08:29 by Venus Pringle MA) Father Colon cancer Mother No problems noted. Paternal Grandfather Cancer of unknown origin Social History Housing: House Patient Tobacco Use Status: Former Tobacco user Years Smoked: 20 years-quit 1981 e-Cigarette/Vaping Use: Former Use service: No Current occupational status: retired Cognitive needs: No Hearing needs: No Vision needs: Yes (reading glasses) Questionnaire Thrive Questionnaire Date Thrive assessed: 04/13/25 INEZ-7 AMB Questionnaire INEZ-7 Date INEZ - 7 assessed: 04/13/25 Source: Developed by Drs. Dallin Hurtado, LatriciaPraveen Gutierrez and colleagues, with an educational el from [employer]. Review of Systems Narrative Review of Systems - General: Reports feeling good otherwise. - HEENT: Reports residual eye swelling post-fall. Denies eye pain or vision changes. - Musculoskeletal: Reports sore ribs. Reports shoulder pain that prevents lying on it. Reports cramping pain in hands. - Neurological: Denies loss of consciousness during the fall. - Constitutional: Reports sleep disturbance due to pain. All systems reviewed & are unremarkable except as reviewed in HPI and above Physical exam (Primary Care) Vital Signs: Last Vital Signs Temp 97.4 F 05/17/25 08:11 Pulse 78 05/17/25 08:11 BP 126/80 05/17/25 08:11 Pulse Ox 98 05/17/25 08:11 Oxygen Delivery Method Room Air 05/17/25 08:11 BMI result Body Mass Index 25.4 Tobacco/Smoking Status: Tobacco use Status Tobacco use date assessed 05/17/25 05/17/25 08:19 Patient Tobacco Use Status Former Tobacco user 05/17/25 08:12 e-Cigarette/Vaping Use Former Use 05/17/25 08:12 Thrive Assessment: Date of Thrive Assessment Date Thrive assessed 04/13/25 05/17/25 08:12 Narrative Physical Exam General: +Alert and oriented, Well nourished, No acute distress. Eye: Pupils are equal, round and reactive to light, Intact accommodation, Extraocular movements are intact, Normal conjunctiva, Vision unchanged, Eye is a little swollen. HENT: Normocephalic, Atraumatic, Tympanic membranes are clear, Normal hearing, Oral mucosa is moist, No pharyngeal erythema, Ear canals patent. Respiratory: Lungs CTA bilaterally, No wheeze, Respirations are non-labored. Cardiovascular: Regular rate, Regular rhythm, S1 auscultated, S2 auscultated, No murmur, Good pulses equal in all extremities, Normal peripheral perfusion, No edema. Gastrointestinal: Soft, Non-tender, Non-distended, Normal bowel sounds, No organomegaly. Musculoskeletal: Normal range of motion, Normal strength, No tenderness, No swelling, No deformity, Normal gait, Tear in rotator cuff, Biceps tendon full thickness tear. Integumentary: Warm, Dry, Debary, Intact. Neurologic: Alert, Oriented, Normal sensory, Normal motor function, No focal defects, Cranial Nerves II-XII are grossly intact, Normal deep tendon reflexes. Psychiatric: Cooperative, Appropriate mood & affect, Normal judgment. Coding Level of Care Code Est Pt Level 4 (99743) Complex visit Add On G2211 Diagnoses Trauma T14.90XA Nontraumatic complete tear of rotator cuff, unspecified laterality M75.120 Rotator cuff tear extent: complete Rotator cuff tear trauma status: nontraumatic Laterality: unspecified laterality Vitamin B 12 deficiency E53.8 Type 2 diabetes mellitus without complication, without long-term current use of insulin E11.9 Diabetes mellitus type: type 2 Diabetes mellitus residential insulin use: without long term care phlebotomist use Diabetes mellitus complication status: without complication Coronary artery disease, unspecified vessel or lesion type, unspecified whether angina present, unspecified whether [place] or transplanted heart I25.10 Coronary Disease-Associated Artery/Lesion type: unspecified vessel or lesion type [place] vs. transplanted heart: unspecified whether [place] or transplanted heart Associated angina: unspecified whether angina present Hypertension, unspecified type I10 Hypertension type: unspecified Crohn's disease of large intestine with other complication K50.118 Gastrointestinal tract location: large intestine Digestive disease complication type: other complication Assessment & Plan Assessment & Plan (1) Trauma: Comment: - The patient presents for follow-up after a fall, reporting facial trauma and sore ribs. - Examination is reassuring, with no acute neurological deficits. - The plan is to continue symptomatic management with Tylenol and allow time for healing. Code(s): T14.90XA - Injury, unspecified, initial encounter Category: Medical (2) Rotator cuff tear: Comment: - A recent MRI confirmed a full-thickness tear, which is causing pain and sleep disturbance. - The patient has an upcoming appointment with an rfid specialist. - The plan is to defer management to the specialist. Code(s): M75.100 - Unspecified rotator cuff tear or rupture of unspecified shoulder, not specified as traumatic Category: Medical Qualifiers: Rotator cuff tear extent: complete Rotator cuff tear trauma status: nontraumatic Laterality: unspecified laterality Qualified Code(s): M75.120 - Complete rotator cuff tear or rupture of unspecified shoulder, not specified as traumatic (3) Vitamin B 12 deficiency: Comment: - Due to a history of GI resection, there is concern for malabsorption. - The patient was taking tablets instead of the recommended sublingual form. - A B12 and folate level will be checked today to guide further supplementation. Code(s): E53.8 - Deficiency of other specified B group vitamins Category: Medical (4) Diabetes mellitus: Comment: - Continue current medication regimen; A1c 6.3 - Continued follow up with endocrinology (In May) Code(s): E11.9 - Type 2 diabetes mellitus without complications Category: Medical Qualifiers: Diabetes mellitus type: type 2 Diabetes mellitus residential insulin use: without long term care phlebotomist use Diabetes mellitus complication status: without complication Qualified Code(s): E11.9 - Type 2 diabetes mellitus without complications (5) CAD (coronary artery disease): Comment: - Continue aspirin regimen for preventive care. Code(s): I25.10 - Atherosclerotic heart disease of [place] coronary artery without angina pectoris Category: Medical Qualifiers: Coronary Disease-Associated Artery/Lesion type: unspecified vessel or lesion type [place] vs. transplanted heart: unspecified whether [place] or transplanted heart Associated angina: unspecified whether angina present Qualified Code(s): I25.10 - Atherosclerotic heart disease of [place] coronary artery without angina pectoris (6) Hypertension: Comment: - Continue antihypertensive regimen with lisinopril and metoprolol. Code(s): I10 - Essential (primary) hypertension Category: Medical Qualifiers: Hypertension type: unspecified Qualified Code(s): I10 - Essential (primary) hypertension (7) Crohn's disease: Comment: - Status post ileostomy after having multiple SBO and flare-ups - Ostomy supplies form filled Code(s): K50.90 - Crohn's disease, unspecified, without complications Category: Medical Qualifiers: Gastrointestinal tract location: large intestine Digestive disease complication type: other complication Qualified Code(s): K50.118 - Crohn's disease of large intestine with other complication Plan: Health Maintenance: - Will check vitamin B12 and folate levels today to monitor for deficiency related to prior GI surgery. - The patient is scheduled for a follow-up appointment in two months for ongoing chronic disease management. Patient was informed and verbally consented to the use of an ambient scribe for clinic note documentation during this visit. Plan I reviewed the patient's recent presentation following a fall. I reassured the patient that the absence of loss of consciousness and the normal imaging findings were the most important aspects, and that the residual rib pain and swelling are expected to resolve with time. We discussed the recent shoulder MRI, and I confirmed that it shows a full- thickness rotator cuff tear, which explains the pain and difficulty sleeping. I affirmed the patient's plan to see an rfid specialist for management. I advised the patient on the importance of using sublingual vitamin B12 due to a history of GI resection and ordered labs to check current levels. We reviewed all current medications for chronic conditions, and I confirmed they should be continued as prescribed. We discussed pain management, and I respected the patient's decision to avoid stronger pain medications, agreeing that Tylenol is sufficient. I instructed the patient to schedule a follow-up visit in two months. Orders: Orders Vitamin B12 and Folate Today E53.8 - Deficiency of other specified B group vitamins, K50.118 - Crohn's disease of large intestine with other complication Patient Instructions: - Please go to the lab to have your vitamin B12 and folate levels checked today. - Stop taking the vitamin B tablets; we will discuss if you need a different kind after we get your lab results. - Continue to take Tylenol for pain from your ribs and hands. It will take time for the rib pain to improve. - Continue with your plan to see the rfid specialist to discuss your shoulder tear. - Continue taking your other regular medications for your chronic conditions as prescribed. - Please schedule a follow-up appointment at the front load trash truck driver for two months from now.
[2025-05-17 08:11] VITALS: BP 126/80; PULSE 78; TEMP 36.3; O2SAT 98; BMI 25.4
--- OUTSIDE RECORDS SUMMARY | 2025-05-17 08:28 | XMS_ITS | Patient Health Record ---
Author Organization [facility] Address [address] [place] [address] Care Team Providers Care Plugman Name Role Phone Nehal (RETIRED) Hi COHN Primary Care Provide Dallin Magaña [phone] Allergies Allergen (clinical drug ingredient) Drug/Non Drug Allergy documented on EMR Reaction Allergy Type Onset Date Status Substance with penicillin structure and antibacterial mechanism of action (substance) all cillin drugs (uncoded) Unknown Allergy Active ivp dye (uncoded) Unknown Allergy Ac tive Penicillin Unknown Drug Allergy Active Reason For Referral No Information Medications Medication SIG (Take, Route, Frequency, Duration) Notes Start Date End Date Status Pantoprazole Sodium 40 MG Tablet Delayed Release TAKE 1 TABLET BY MOUTH EVERY DAY FOR 90 DAYS; Duration: 90 Active Farxiga 5 MG Tablet Oral; Duration: 60 Active Potassium Citrate ER 10 MEQ (1080 MG) Tablet Extended Release Oral; Duration: 90 Active Metoprolol Succinate ER 25 MG Tablet Extended Release 24 Hour Oral; Duration: 90 Active Allopurinol 100 MG Tablet Oral; Duration: 90 Active Atorvastatin Calcium 80 MG Tablet Oral; Duration: 90 Active Sucralfate 1 GM Tablet TAKE 1 TABLET BY MOUTH 3 TIMES A DAY 30 TO 60 MINUTES BEFORE MEALS; Duration: 30 Active Immunizations Vaccine Route Administration Date Status Comme nts Flu vaccine no Preserv 3 and > Unknown 04/06/2014 Admin istered Influenza Unknown 03/24/2021 Administered Social History Social History Additional Details Category Social Info Options Details Miscellaneous: Marital status: 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 Section Notes: Nonsmoker; no significant al cohol Nonsmoker; no significant al cohol Nonsmoker; no significant al cohol Problems Problem Type SNOMED Code ICD Code Onset Dates Problem Status W/U Status Risk Notes Problem Intestinal obstruction due to Crohn's disease of small intestine (471899189776773 3) Crohn's disease of small intestine with intestinal obstruction (K50.012) Active confirmed Problem Benign neoplasm of stomach (96146940) Gastric polyps (K31.7) Active confirmed Problem Chronic gastritis (3780110) Gastritis, chronic (K29.50) Active confirmed Problem Iron deficiency anemia due to chronic blood loss (309008638) Iron deficiency anemia due to chronic blood loss (D50.0) Active confirmed Problem Iron deficiency anemia (11021726) Iron deficiency anemia, unspecified iron deficiency anemia type (D50.9) Active confirmed Plan Of Treatment Pending Test Test Name Order Date IRON + IBC (FE) 04/13/2021 IRON + IBC (FE) 07/26/2021 CBC w DIFF 07/26/2021 CBC w DIFF 04/13/2021 CBC w DIFF 04/18/2021 CELIAC PANEL #10 04/13/2021 Ferritin 04/13/2021 Ferritin 07/26/2021 Future Test Test Name Order Date UPPER GI ENDOSCOPY [place] DILATION OF ESOPH 10/29/2014 UPPER GI ENDOSCOPY 04/13/2021 Insurance Providers Payer Name Payer Address Payer Phone Subscriber Number Group Number Insured Name Patient Relationship to Insured Coverage Start Date Coverage End Date MEDICARE OF [place] [address] [place] [address] [id number] NANCY ALFONSO Self - patient is the insured FORMERLY [facility] INDEMNITY [address] [place] [address] [id number] NANCY ALFONSO Self - patient is the insured Medical (General) History Medical History History ICD Code Denies CT,CVA,Lung disease,renal disease IDDM Kidney stones Bladder stones [...]
--- OUTSIDE RECORDS SUMMARY | 2025-05-17 08:28 | XMS_ITS | Clinical Summary ---
Author Organization [facility] Facility Address [address] [place] [id number] Care Team Providers Care Retail Commission Sales Associate Name Role Phone Hi Calvert MD Primary Care Provider [phone] Allergies Active Allergy Reactions Criticality Noted Date Comments Amoxicillin Other (see comments) 08/22/2020 Bacitracin Other (see comments) 08/22/2020 Infliximab Other (see comments) 08/22/2020 Penicillin G Other (see comments) 11/26/2021 Ceftriaxone Other (see comments) 08/22/2020 Sulfa Antibiotics Other (see comments) 08/23/19 Sulfamethoxazole-Trimethoprim Other (see comments) 08/22/2020 Medications Multiple Vitamins-[place] als (MULTIVITAMIN ADULTS 50+ PO) Take 1 [...] [facility] [address] [place] [address] Bijan Cleary MD [address] [facility] [address] [place] [address] Health Maintenance Due Date Last [...] Recently Relevant to Health Maintenance Insurance Medicare [facility] Medicare [employer] Care Teams Retail Commission Sales Associate Relationship Specialty Start Date End Date Hi Calvetr MD [address] [place] PCP - General 07/04/20
--- OUTSIDE RECORDS SUMMARY | 2025-05-17 08:28 | XMS_ITS | Encounter Summary ---
Author Organization [facility] Address [address] [place] [address] Phone Care Team Providers Care Poultry Helper Name Role Phone Hi Calvert MD Primary Care Provider [phone] Reason for Visit * Reason Comments Med Refill Encounter Details Date Type Department Care Team (Late st Contact Info) Description 04/09/2024 Refill [facility] [address] [place] [id number] Bijan Cleary MD [address] [address] Social History Tobacco Use Types [...] Visit [facility] [address] [place] [address] Bijan Cleary MD [address] [address] documented as of this encounter Visit Diagnoses Not on filedocumented in this encounter Care Teams Poultry Helper Relationship Specialty Start Date End Date Hi Calvert MD [id number] [place] PCP - General 07/04/20 documented as of this encounter
--- OUTSIDE RECORDS SUMMARY | 2025-05-17 08:28 | XMS_ITS | Continuity of Care Document ---
Author Organization [facility] [address] [place] [address] Phone [phone] Care Team Providers Care Political Science Faculty Member Name Role Phone Hi Calvert M.D. Care Team Information Receiv er [phone] Problems Active Problems Provider Date Type 2 [...] SIG Qnty Indications Order ing Provider Date Kcjvmbtl9zt/0.5ML Solution Auto-Inject Inject 5 MG Subcutaneously Once A Week as Directed For 4 Weeks 2units E11.8 Valentin Helm M.D. 02/14/2024 N18.9 I25.10 Pevyispxzd7hb Tablets 1 by mouth every day Valentin Helm M.D. 07/09/19 24 Exnpihl24yc Tablets 1 by mouth every day 90tabs Valentin Helm M.D. 11/24/19 23 Imkrenh3mt Tablets 1 by mouth every day Valentin Helm M.D. 08/23/19 23 Vitamin Deficiency Injectable System-[id number]/ML Kit inject every month Valentin Aly M.D. 08/22/[address] 1 by mouth every day 90tabs Valentin Helm M.D. 04/17/20 22 Metoprolol Succinate ER25mg Tablets ER 24HR Take 1 Tablet By Mouth Every Day as Directed Hi Calvert M.D. Unlhukrbcjs821ha Tablets Take 2 Tablets By Mouth Every Day Unknown Potassium Citrate UO63Fmf (1080 mg) Tablets ER Take 1 Tablet By Mouth Twice A Day as Directed Unknown Atorvastatin Mmikzut26rr Tablets Take 1 Tablet By Mouth Everyday AT Bedtime Hi Calvert M.D. Pantoprazole Mlegnf11mt Tablets DR Take 1 Tablet By Mouth [...]
== END 2025-05-17 08:44 | disposition home or self-care (01) ==
LOC: HO.HMCHD 08:21
PROVIDERS: PCP Internal Medicine; Visit Provider Student in an Organized Health Care Education/Training Program
DX: T14.90XA Injury, unspecified, initial encounter (principal); M75.120 Complete rotator cuff tear or rupture of unspecified shoulder, not specified as traumatic; E53.8 Deficiency of other specified B group vitamins; E11.9 Type 2 diabetes mellitus without complications; I25.10 Atherosclerotic heart disease of native coronary artery without angina pectoris; I10 Essential (primary) hypertension; K50.118 Crohn's disease of large intestine with other complication

== ENCOUNTER 2025-05-17 08:48 | Outpatient (REF) | payer MEDICARE, OTHER, SELFPAY ==
[2025-05-17 10:48] LABS: MANUAL DIFF FLAG NO
[2025-05-17 10:50] LABS: Hematocrit 41.9 % (42.0-52.0); Hemoglobin 11.5 g/dl (14.0-18.0); Imm Gran Abs Auto 0.01 X10*3/uL (0.00-0.03); Imm Gran Pct Auto 0.2 % (0.0-0.4); Lymphocytes Absolute Auto 1.0 X10*3/uL (1.2-4.9); Mean Corpuscular HGB Conc 27.4 g/dl (31.0-36.0); Mean Corpuscular Hemoglobin 19.6 pg (27.0-33.0); Mean Corpuscular Volume 71.4 fL (80.0-98.0); NRBC Abs Auto 0.000 X10*3/uL (0.0-0.012); NRBC Pct Auto 0.0 /100WBC (0.0-0.2); Platelet Count 209 X10*3/uL (160-400); Red Blood Count 5.87 X10*6/uL (4.60-5.80); White Blood Count 6.4 X10*3/uL (4.8-10.8)
[2025-05-17 11:31] LABS: Alanine Aminotransferase 33 U/L (0-40); Albumin Level 4.6 g/dL (3.5-5.0); Alkaline Phosphatase 99 U/L (39-117); Anion Gap 12 (12-20); Aspartate Amino Transferase 28 U/L (5-37); Blood Urea Nitrogen 33 mg/dL (9-16); Calcium 9.2 mg/dL (8.4-10.2); Carbon Dioxide 22 mmol/L (22-29); Chloride 111 mmol/L (96-108); Cholesterol 80 mg/dL (<200); Estimated Glomerular Filt Rate 44; HDL Cholesterol 36 mg/dL (>40); Potassium 4.7 mmol/L (3.3-5.1); Sodium 140 mmol/L (135-145); Total Protein 7.1 g/dL (6.5-8.0); Triglycerides 128 mg/dL (<150)
[2025-05-17 11:55] LABS: Folate 17.3 ng/mL (> or = 4.0); Vitamin B12 472 pg/mL (200-900)
== END 2025-05-17 08:49 | disposition home or self-care (01) ==
LOC: HO.10HDL 08:48
PROVIDERS: Visit Provider Student in an Organized Health Care Education/Training Program
DX: Z00.00 Encounter for general adult medical examination without abnormal findings (principal); E53.8 Deficiency of other specified B group vitamins; K50.118 Crohn's disease of large intestine with other complication; Z13.6 Encounter for screening for cardiovascular disorders; Z13.29 Encounter for screening for other suspected endocrine disorder
CPT/HCPCS: 36415; 80053; 80061; 82306; 82607; 82746; 84443; 85025; 99212

== ENCOUNTER 2025-05-31 14:22 | Outpatient (REF) | payer MEDICARE, OTHER, SELFPAY ==
--- NOTE | ~2025-05-31 | XR_ITS ---
EXAMINATION: XR CHEST CLINICAL INFORMATION: J06.9 - Acute upper respiratory infection, unspecified COMPARISON: 11/11/2019 TECHNIQUE: 2 views of the chest were obtained. FINDINGS: There has been previous median sternotomy and CABG. The cardiac, hilar, and mediastinal contours are normal. The lungs are clear bilaterally. There is no pneumothorax or pleural effusion. There is no focal osseous or soft tissue abnormality. There are degenerative changes throughout the spine. XR/XR chest 2V IMPRESSION: No active pulmonary disease. Electronically signed by: Pascual Clements MD 05/31/2025 03:06 PM SIMON
== END 2025-05-31 14:23 | disposition home or self-care (01) ==
LOC: HO.XRAY 14:22
PROVIDERS: PCP Student in an Organized Health Care Education/Training Program; Visit Provider Student in an Organized Health Care Education/Training Program
DX: J06.9 Acute upper respiratory infection, unspecified (principal); K50.118 Crohn's disease of large intestine with other complication; I10 Essential (primary) hypertension; I25.10 Atherosclerotic heart disease of native coronary artery without angina pectoris; E78.5 Hyperlipidemia, unspecified; E11.9 Type 2 diabetes mellitus without complications
CPT/HCPCS: 71046; 99212

== ENCOUNTER 2025-05-31 14:22 | Outpatient (AMB) | payer MEDICARE, OTHER, SELFPAY ==
--- NOTE | 2025-05-31 14:24 | A.OFFPC_ITS ---
Vital Signs 05/31/25 14:28 Height 5 ft 10 in Weight 177 lb BMI 25.4 BP 126/62 Blood Pressure Location Lt brachial Position Sitting Respiration 22 H Pulse 82 Pulse Source Pulse Oximeter Temp 97.3 F Temp Source Temporal Artery Scan Pulse Oximetry (%) 99 Oxygen Delivery Method Room Air Intake Visit Reasons: Cold x Days Wants Lungs Checked Instructional Aide Required: No Accompanied by: Self / Same As Patient Allergies infliximab (From Remicade) Allergy (Severe, Verified 05/31/25 14:24) CHEST,ARM PAIN azathioprine (From Imuran) Allergy (Intermediate, Verified 05/31/25 14:24) LOWERED WBC'S Iodinated Contrast Media (IV Dye, Iodine Containing) Allergy (Intermediate, Verified 05/31/25 14:24) CHILLS,RASH,SWEATS alendronate sodium (From FOSAMAX) Allergy (Mild, Verified 05/31/25 14:24) HIVES amoxicillin (AMOXICILLIN) Allergy (Mild, Verified 05/31/25 14:24) HIVES ceftriaxone (From ROCEPHIN) Allergy (Mild, Verified 05/31/25 14:24) HIVES omeprazole (From PRILOSEC) Allergy (Mild, Verified 05/31/25 14:24) HIVES sulfamethoxazole (From Bactrim) Allergy (Mild, Verified 05/31/25 14:24) HIVES lansoprazole (Prevpac) Allergy (Unknown, Verified 05/31/25 14:24) Unknown penicillin V Allergy (Unknown, Verified 05/31/25 14:24) Unknown trimethoprim (From Bactrim) Allergy (Unknown, Verified 05/31/25 14:24) HIVES SURGICAL MESH Allergy (Unknown, Uncoded 05/10/25 13:23) Unknown Medication List - Last Reconciled 05/31/25 by Lauri Carvajal MD allopurinol 200 mg (2 x 100 mg) PO DAILY 90 days ascorbic acid (vitamin C) 1,000 mg PO DAILY aspirin 81 mg PO DAILY atorvastatin 80 mg PO BEDTIME 90 days cholecalciferol (vitamin D3) 25 mcg PO DAILY dapagliflozin propanediol (Farxiga) 10 mg PO DAILY econazole nitrate 1% appl topical finasteride 5 mg PO DAILY 90 days lisinopril 5 mg PO DAILY metoprolol succinate ER 25 mg PO DAILY 90 days multivitamin 1 tab PO DAILY pantoprazole 40 mg PO BID tirzepatide (Mounjaro) 10 mg subcut Tobacco use date assessed: 05/17/25 Fall risk assessment: No Falls in past year Last assessed Fall Risk: 05/31/25 Dental Screening Dental Screen Date: 05/17/25 HPI HPI Comments History of Present Illness Details History of Present Illness The patient is a 80 year old male presenting with cough and chest congestion. He reports having a cold for about eight to nine days with symptoms of cough, sneezing, and stuffiness. Sputum has been clear to yellow. He denies any fevers or chills. Over the weekend, he experienced a rattling sensation in his chest, which has since improved. He has tried Mucinex for his symptoms. Home remedies include using Vicks at night, though he avoids cough syrup due to its sugar content. The patient has a history of Crohn's disease and reports a history of frequent steroid use, stating he hates steroids and tries to avoid prednisone. Medical History: - Crohn's disease, previously treated wi th x-ray therapy - History of frequent steroid use Medications: - Mucinex, taken for cold symptoms [facility] Medical History (Updated 05/31/25 @ 14:48 by Lauri Carvajal MD) URI (upper respiratory infection) Rotator cuff tear Trauma Hypokalemia Hypertension Use of steroids Hyperlipidemia Vitamin B 12 deficiency Epidermal cyst Enlarged prostate Elevated cholesterol Crohn disease Squamous cell cancer of lip Lesion of lip Calculus of kidney CAD (coronary artery disease) Gout Nephrolithiasis Diabetes mellitus Surgical History History of colonoscopy (~11/23/14) History of removal of cyst (~06/03/23) H/O squamous cell carcinoma excision (10/17/22) History of biopsy (09/25/22) History of esophagogastroduodenoscopy (EGD) H/O cystoscopy History of quadruple bypass (~10/2016) H/O thumb surgery H/O ileostomy Family History (Updated 05/17/25 @ 08:29 by Venus Pringle MA) Father Colon cancer Mother No problems noted. Paternal Grandfather Cancer of unknown origin Social History Housing: House Patient Tobacco Use Status: Former Tobacco user Years Smoked: 20 years-quit 1981 e-Cigarette/Vaping Use: Former Use service: No Current occupational status: retired Cognitive needs: No Hearing needs: No Vision needs: Yes (reading glasses) Questionnaire Thrive Questionnaire Date Thrive assessed: 04/13/25 INEZ-7 AMB Questionnaire INEZ-7 Date INEZ - 7 assessed: 04/13/25 Source: Developed by Drs. Dallin Hurtado, Latricia Mohan, Praveen Valdez and colleagues, with an educational el from [employer]. Review of Systems Narrative Review of Systems - Respiratory: Reports cough with clear to yellow sputum, stuffiness, sneezing, and a rattling sensation in his chest which has improved. Denies wheezing. - Constitutional: Denies fevers and chills. All systems reviewed & are unremarkable except as reviewed in HPI and above Physical exam (Primary Care) Vital Signs: Last Vital Signs Temp 97.3 F 05/31/25 14:28 Pulse 82 05/31/25 14:28 Resp 22 H 05/31/25 14:28 BP 126/62 05/31/25 14:28 Pulse Ox 99 05/31/25 14:28 Oxygen Delivery Method Room Air 05/31/25 14:28 BMI result Body Mass Index 25.4 Tobacco/Smoking Status: Tobacco use Status Tobacco use date assessed 05/17/25 05/31/25 14:26 Patient Tobacco Use Status Former Tobacco user 05/31/25 14:26 e-Cigarette/Vaping Use Former Use 05/31/25 14:26 Thrive Assessment: Date of Thrive Assessment Date Thrive assessed 04/13/25 05/31/25 14:26 Narrative Physical Exam General: Alert and oriented, Well nourished, No acute distress. Eye: Pupils are equal, round and reactive to light, Intact accommodation, Extraocular movements are intact, Normal conjunctiva, Vision unchanged. HENT: Normocephalic, Atraumatic, Tympanic membranes are clear, Normal hearing, Oral mucosa is moist, No pharyngeal erythema, Ear canals patent. Respiratory: Lungs CTA bilaterally, Crackles present, Respirations are non- labored. Cardiovascular: Regular rate, Regular rhythm, S1 auscultated, S2 auscultated, No murmur, Good pulses equal in all extremities, Normal peripheral perfusion, No edema. Gastrointestinal: Soft, Non-tender, Non-distended, Normal bowel sounds, No organomegaly. Musculoskeletal: Normal range of motion, Normal strength, No tenderness, No swelling, No deformity, Normal gait. Integumentary: Warm, Dry, Felt, Intact. Neurologic: Alert, Oriented, Normal sensory, Normal motor function, No focal defects, Cranial Nerves II-XII are grossly intact, Normal deep tendon reflexes. Psychiatric: Cooperative, Appropriate mood & affect, Normal judgment. Coding Level of Care Code Est Pt Level 4 (40228) Complex visit Add On G2211 Diagnoses Crohn's disease of large intestine with other complication K50.118 Digestive disease complication type: other complication Gastrointestinal tract location: large intestine Upper respiratory tract infection, unspecified type J06.9 URI type: unspecified URI Hypertension, unspecified type I10 Hypertension type: unspecified Coronary artery disease, unspecified vessel or lesion type, unspecified whether angina present, unspecified whether [place] or transplanted heart I25.10 Associated angina: unspecified whether angina present Coronary Disease-Associated Artery/Lesion type: unspecified vessel or lesion type [place] vs. transplanted heart: unspecified whether [place] or transplanted heart Hyperlipidemia, unspecified hyperlipidemia type E78.5 Hyperlipidemia type: unspecified Type 2 diabetes mellitus without complication, without long-term current use of insulin E11.9 Diabetes mellitus complication status: without complication Diabetes mellitus vermin exterminator insulin use: without senior living use Diabetes mellitus type: type 2 Assessment & Plan Assessment & Plan (1) Crohn's disease: Comment: - Status post ileostomy after having multiple SBO and flare-ups - Ostomy supplies form filled Code(s): K50.90 - Crohn's disease, unspecified, without complications Category: Medical Qualifiers: Digestive disease complication type: other complication Gas trointestinal tract location: large intestine Qualified Code(s): K50.118 - Crohn's disease of large intestine with other complication (2) URI (upper respiratory infection): Comment: - The patient presents with an 8-9 day history of cough and congestion, with clear to yellow sputum and no fevers or chills, suggesting a viral etiology. - Symptoms have been improving. - Lung exam was clear. - A chest x-ray will be obtained to provide reassurance. - The patient was advised on supportive care measures such as Vicks inhalation, steam, and hot tea. - Robitussin was offered if the cough worsens. - An albuterol inhaler will be prescribed for use as needed for wheezing. - Steroids were discussed as a treatment but deferred due to patient preference and history of use. - The plan is to continue monitoring symptoms; if they worsen or persist by Saturday, antibiotics have been sent and he can pick them up then. Code(s): J06.9 - Acute upper respiratory infection, unspecified Category: Medical Qualifiers: URI type: unspecified URI Qualified Code(s): J06.9 - Acute upper respiratory infection, unspecified (3) Hypertension: Comment: - Continue antihypertensive regimen with lisinopril and metoprolol. Code(s): I10 - Essential (primary) hypertension Category: Medical Qualifiers: Hypertension type: unspecified Qualified Code(s): I10 - Essential (primary) hypertension (4) CAD (coronary artery disease): Comment: - Continue aspirin regimen for preventive care. Code(s): I25.10 - Atherosclerotic heart disease of [place] coronary artery without angina pectoris Category: Medical Qualifiers: Associated angina: unspecified whether angina present Coronary Disease- Associated Artery/Lesion type: unspecified vessel or lesion type [place] vs. transplanted heart: unspecified whether [place] or transplanted heart Qualified Code(s): I25.10 - Atherosclerotic heart disease of [place] coronary artery without angina pectoris (5) Hyperlipidemia: Comment: - Maintain current atorvastatin dosage; monitor cholesterol levels. Code(s): E78.5 - Hyperlipidemia, unspecified Category: Medical Qualifiers: Hyperlipidemia type: unspecified Qualified Code(s): E78.5 - Hyperlipidemia, unspecified (6) Diabetes mellitus: Comment: - Continue current medication regimen; A1c 6.3 - Continued follow up with endocrinology (In May) Code(s): E11.9 - Type 2 diabetes mellitus without complications Category: Medical Qualifiers: Diabetes mellitus complication status: without complication Diabetes mellitus vermin exterminator insulin use: without senior living use Diabetes mellitus type: type 2 Qualified Code(s): E11.9 - Type 2 diabetes mellitus without complications Plan: Health Maintenance: - The patient reports having received all his vaccinations. Patient was informed and verbally consented to the use of an ambient scribe for clinic note documentation during this visit. Plan I discussed with the patient that his symptoms are most likely due to a viral infection, specifically viral bronchitis, which is very common and can cause a cough for up to six weeks. I informed him that his lungs sound clear on examination. To provide reassurance, I agreed to order a chest x-ray, although I do not suspect a serious issue like pneumonia, given his lack of fever. We discussed treatment options, and I recommended supportive care, such as steam inhalation. I will send a prescription for an albuterol inhaler for him to use if he feels wheezy. We decided against steroids due to his past experiences and preference. I advised him to monitor his symptoms and to contact us if he is not feeling better by Saturday, at which point we would consider antibiotics (Which have already been sent and [place] for peanut picker) Orders: Orders XR chest 2V Today J06.9 - Acute upper respiratory infection, unspecified Medications: New azithromycin 250 mg orally; 6 tabs 0RF J06.9 - Acute upper respiratory infection, unspecified albuterol sulfate 90 mcg/actuation (Ventolin HFA) 2 puffs inhalation Q6H PRN 8.5 grams 0RF shortness of breath or wheezing Patient Instructions: - Your symptoms are likely from a viral infection or viral bronchitis. This can cause a cough that lasts for up to six weeks. - Continue with simple home remedies like Vicks, steam inhalation, and hot tea to help with your symptoms. - You can use Robitussin if your cough becomes very bad. - A prescription for an albuterol inhaler will be sent to your pharmacy. Use it by taking a deep puff if you feel like you are wheezing or your breathing is getting difficult. - Please go for a chest x-ray at the hospital. - Keep watching your symptoms. If you are not getting better by Saturday, please call our office.
[2025-05-31 14:28] VITALS: BP 126/62; PULSE 82; RESP 22; TEMP 36.3; O2SAT 99; BMI 25.4
--- OUTSIDE RECORDS SUMMARY | 2025-05-31 23:20 | XMS_ITS | Continuity of Care Document ---
Author Organization [facility] [address] [place] [address] Phone [phone] Care Team Providers Care Brush Cutter Name Role Phone Hi Calvert M.D. Care Team Information Receiv er [phone] Problems Active Problems Provider Date Type 2 [...] SIG Qnty Indications Order ing Provider Date Ehthlazx9hg/0.5ML Solution Auto-Inject Inject 5 MG Subcutaneously Once A Week as Directed For 4 Weeks 2units E11.8 Valentin Helm M.D. 02/14/2024 N18.9 I25.10 Vkwdiafxrx0zq Tablets 1 by mouth every day Valentin Helm M.D. 07/09/19 24 Htuqygg08eh Tablets 1 by mouth every day 90tabs Valentin Helm M.D. 11/24/19 23 Oqfhywg2ys Tablets 1 by mouth every day Valentin Helm M.D. 08/23/19 23 Vitamin Deficiency Injectable System-[id number]/ML Kit inject every month Valentin Aly M.D. 08/22/[address] 1 by mouth every day 90tabs Valentin Helm M.D. 04/17/20 22 Metoprolol Succinate ER25mg Tablets ER 24HR Take 1 Tablet By Mouth Every Day as Directed Hi Calvert M.D. Fiqdmyrfaud286nt Tablets Take 2 Tablets By Mouth Every Day Unknown Potassium Citrate JT40Lhj (1080 mg) Tablets ER Take 1 Tablet By Mouth Twice A Day as Directed Unknown Atorvastatin Tmmqxdr59eh Tablets Take 1 Tablet By Mouth Everyday AT Bedtime Hi Calvert M.D. Pantoprazole Lkorhl89ts Tablets DR Take 1 Tablet By Mouth [...]
--- OUTSIDE RECORDS SUMMARY | 2025-05-31 23:20 | XMS_ITS | Patient Health Record ---
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 Section Notes: Nonsmoker; no significant al cohol Nonsmoker; no significant al cohol Nonsmoker; no significant al cohol Problems Problem Type SNOMED Code ICD Code Onset Dates Problem Status W/U Status Risk Notes Problem Intestinal obstruction due to Crohn's disease of small intestine ([id number] 3) Crohn's disease of small intestine with intestinal obstruction (K50.012) Active confirmed Problem Benign neoplasm of stomach (45737614) Gastric polyps (K31.7) Active confirmed Problem Chronic gastritis (2616124) Gastritis, chronic (K29.50) Active confirmed Problem Iron deficiency anemia due to chronic blood loss (259684604) Iron deficiency anemia due to chronic blood loss (D50.0) Active confirmed Problem Iron deficiency anemia (10988491) Iron deficiency anemia, unspecified iron deficiency anemia [...] Date MEDICARE OF [place] [address] [place] [address] [id number] NANCY ALFONSO Self - patient is the insured [facility] INDEMNITY [address] [place] [address] [id number] NANCY ALFONSO Self - patient is the insured Medical (General) History Medical History History ICD Code Denies [place],CVA,Lung disease,renal disease IDDM Kidney stones Bladder stones [...]
== END 2025-05-31 14:49 | disposition home or self-care (01) ==
LOC: HO.HMCHD 14:23
PROVIDERS: PCP Internal Medicine; Visit Provider Student in an Organized Health Care Education/Training Program
DX: K50.118 Crohn's disease of large intestine with other complication (principal); J06.9 Acute upper respiratory infection, unspecified; I10 Essential (primary) hypertension; I25.10 Atherosclerotic heart disease of native coronary artery without angina pectoris; E78.5 Hyperlipidemia, unspecified; E11.9 Type 2 diabetes mellitus without complications

== ENCOUNTER → 2025-05-31 14:48 | Outpatient (BNV) | payer MEDICARE, OTHER, SELFPAY | PROVIDERS: PCP Student in an Organized Health Care Education/Training Program; Visit Provider Radiology Diagnostic Radiology | DX: J06.9 Acute upper respiratory infection, unspecified (principal) | CPT/HCPCS: 71046 ==

== ENCOUNTER 2025-06-03 13:05 | Outpatient (AMB) | payer MEDICARE, OTHER, SELFPAY ==
--- NOTE | 2025-06-03 13:08 | MHC.OFFVIS ---
Intake Visit Reasons: OV-Right Shoulder MRI Review Intake Note: Jamie is a 80 year old right hand dominant male who presents today for an MRI review of his right shoulder. Hx of injection 01/25/25 that was only mildly helpful. Of note, on 05/10/25 patient was seen at [facility] s/p trip and fall with right sided head strike. His fall was after MRI was done, he states that he mostly fell on his face and ribs. Patients complains of discomfort with trying to get comfortable to sleep at night. Allergies infliximab (From Remicade) Allergy (Severe, Verified 06/03/25 13:23) CHEST,ARM PAIN azathioprine (From Imuran) Allergy (Intermediate, Verified 06/03/25 13:23) LOWERED WBC'S Iodinated Contrast Media (IV Dye, Iodine Containing) Allergy (Intermediate, Verified 06/03/25 13:23) CHILLS,RASH,SWEATS alendronate sodium (From FOSAMAX) Allergy (Mild, Verified 06/03/25 13:23) HIVES amoxicillin (AMOXICILLIN) Allergy (Mild, Verified 06/03/25 13:23) HIVES ceftriaxone (From ROCEPHIN) Allergy (Mild, Verified 06/03/25 13:23) HIVES omeprazole (From PRILOSEC) Allergy (Mild, Verified 06/03/25 13:23) HIVES sulfamethoxazole (From Bactrim) Allergy (Mild, Verified 06/03/25 13:23) HIVES lansoprazole (Prevpac) Allergy (Unknown, Verified 06/03/25 13:23) Unknown penicillin V Allergy (Unknown, Verified 06/03/25 13:23) Unknown trimethoprim (From Bactrim) Allergy (Unknown, Verified 06/03/25 13:23) HIVES SURGICAL MESH Allergy (Unknown, Uncoded 06/03/25 13:23) Unknown Medication List - Last Reconciled 06/03/25 by Martir Rincon PA-C albuterol sulfate 90 mcg/actuation (Ventolin HFA) 2 puffs inhalation Q6H PRN allopurinol 200 mg (2 x 100 mg) PO DAILY 90 days ascorbic acid (vitamin C) 1,000 mg PO DAILY aspirin 81 mg PO DAILY atorvastatin 80 mg PO BEDTIME 90 days azithromycin 250 mg orally; cholecalciferol (vitamin D3) 25 mcg PO DAILY dapagliflozin propanediol (Farxiga) 10 mg PO DAILY econazole nitrate 1% appl topical finasteride 5 mg PO DAILY 90 days lisinopril 5 mg PO DAILY metoprolol succinate ER 25 mg PO DAILY 90 days multivitamin 1 tab PO DAILY pantoprazole 40 mg PO BID tirzepatide (Mounjaro) 10 mg subcut HPI Comments Details: History of Present Illness The patient is a 80 year old male presenting with right shoulder pain and for review of MRI findings. He reports persistent right shoulder pain that has not improved and primarily impacts his ability to sleep, as he finds it very difficult to sleep on his left side or right side and wakes up from discomfort. His sleep position is further limited as he cannot sleep on his stomach due to a history of an ostomy. He notes his range of motion is good and the shoulder does not bother him during his golf game, but it is aggravated by shoveling or impact activities. Past treatments include injections in the subacromial space which provided temporary numbing relief. A recent MRI, which he states is his first, revealed a tear in the rotator cuff and a retracted biceps tendon tear. The MRI also showed moderate arthritis of the acromioclavicular (AC) joint but no severe arthritis in the glenohumeral joint. Relevant past medical history includes Crohn's disease, an ostomy Social History - Hobbies: The patient plays golf; his game is not significantly impacted by his shoulder condition. [facility] Medical History (Updated 06/03/25 @ 15:03 by Martir Rincon PA-C) URI (upper respiratory infection) Rotator cuff tear Trauma Hypokalemia Hypertension Use of steroids Hyperlipidemia Vitamin B 12 deficiency Epidermal cyst Enlarged prostate Elevated cholesterol Crohn disease Squamous cell cancer of lip Lesion of lip Calculus of kidney CAD (coronary artery disease) Gout Nephrolithiasis Diabetes mellitus Surgical History History of colonoscopy (~11/23/14) History of removal of cyst (~06/03/23) H/O squamous cell carcinoma excision (10/17/22) History of biopsy (09/25/22) History of esophagogastroduodenoscopy (EGD) H/O cystoscopy History of quadruple bypass (~10/2016) H/O thumb surgery H/O ileostomy Family History (Updated 05/17/25 @ 08:29 by Venus Pringle MA) Father Colon cancer Mother No problems noted. Paternal Grandfather Cancer of unknown origin Social History Housing: House Patient Tobacco Use Status: Former Tobacco user Years Smoked: 20 years-quit 1981 e-Cigarette/Vaping Use: Former Use service: No Current occupational status: retired Cognitive needs: No Hearing needs: No Vision needs: Yes (reading glasses) Review of Systems Narrative Review of Systems - Musculoskeletal: Reports right shoulder pain aggravated by pressure, such as sleeping on the side, and by impact activities like shoveling. - Denies significant pain with general movement and reports good range of motion. - Neurological/General: Reports sleep disturbance, waking frequently when rolling over due to shoulder discomfort. - Respiratory: Reports a resolving cough from a recent cold. Physical Exam Exam Exam: Physical Exam - Musculoskeletal (Right Shoulder): - Strength: Mild compensation using the wrist was noted on belly press test. - Rotator cuff function appears grossly intact on strength testing against resistance. - Palpation: Tenderness noted over the acromioclavicular joint area. Results Reviewed Results Reviewed: MR shoulder RT wo con IMPRESSION: 1. Mild supraspinatus tendinosis. 1.6 x 2.7 cm full-thickness tear. 2. Mild-moderate infraspinatus tendinosis. Mild subscapularis tendinosis. 3. Biceps tendon full-thickness tear and distal retraction is suspected. 4. Superior labral degenerative fraying/tear. 5. Moderate acromioclavicular arthritis. Assessment & Plan Assessment & Plan (1) Arthritis of right acromioclavicular joint: Code(s): M19.011 - Primary osteoarthritis, right shoulder Category: Medical (2) Rotator cuff tear: Code(s): M75.100 - Unspecified rotator cuff tear or rupture of unspecified shoulder, not specified as traumatic Category: Medical Qualifiers: Rotator cuff tear extent: complete Rotator cuff tear trauma status: nontraumatic Laterality: unspecified laterality Qualified Code(s): M75.120 - Complete rotator cuff tear or rupture of unspecified shoulder, not specified as traumatic Plan Plan 1. Right Rotator Cuff Tear The patient's MRI shows a right rotator cuff tear without significant retraction or fatty atrophy, making it reparable. Despite the MRI finding, his clinical exam demonstrates good cuff function. The risk of non-operative management, including the tear becoming irreparable and leading to cuff tear arthropathy, was discussed. One surgical option presented was an arthroscopic rotator cuff repair, which involves a recovery of six weeks in a sling followed by physical therapy. Since he does not seem to have limitations with RTC strength, we will hold off on this. 2. Right Acromioclavicular (Ac) Joint Arthritis The MRI shows moderate, inflamed arthritis in the right AC joint, which is suspected to be a primary contributor to his pain, particularly given the tenderness on palpation. A surgical option of arthroscopic subacromial decompression with AC joint debridement was discussed, which would have a shorter recovery of about four weeks without a sling. Alternative management with a targeted AC joint injection was also mentioned. An order will be placed for a two-week trial of Celebrex twice daily to assess for relief and and order for the injection was placed to be performed under fluoroscopy. Consent Patient was informed and verbally consented to the use of an ambient scribe for clinic note documentation during this visit. Orders: Orders FL Guided Asp or Inj Med Jt RT Today M19.011 - Primary osteoarthritis, right shoulder Coding Level of Care Code Est Pt Level 3 (34512) Add On Problem Visit Only Diagnoses Arthritis of right acromioclavicular joint M19.011 Nontraumatic complete tear of rotator cuff, unspecified laterality M75.120 Rotator cuff tear extent: complete Rotator cuff tear trauma status: nontraumatic Laterality: unspecified laterality
== END 2025-06-03 14:51 | disposition home or self-care (01) ==
LOC: HO.HOS 13:05
PROVIDERS: PCP Internal Medicine; Visit Provider Physician Assistant
DX: M19.011 Primary osteoarthritis, right shoulder (principal); M75.121 Complete rotator cuff tear or rupture of right shoulder, not specified as traumatic
CPT/HCPCS: 99213; G2211

== ENCOUNTER → 2025-06-03 13:05 | Outpatient (BNVA) | payer MEDICARE, OTHER, SELFPAY | PROVIDERS: PCP Internal Medicine; Visit Provider Physician Assistant | DX: M19.011 Primary osteoarthritis, right shoulder (principal); M75.121 Complete rotator cuff tear or rupture of right shoulder, not specified as traumatic | CPT/HCPCS: 99212 ==